=== PATIENT | male | born 1955 | race Caucasian/White ===

== ENCOUNTER 2021-08-18 15:39 | Inpatient (IN) | payer MEDICARE, BC ==
[2021-08-18] MEDS ORDERED: SODIUM CHLORIDE 0.9% 1,000 ML IV STA ×3 (15:56→20:01)
[2021-08-18] MEDS ORDERED: ACETAMINOPHEN TAB 500 MG TAB PO STA (15:56)
[2021-08-18 16:39] LABS: Basophils % (A) 1 %; Eosinophils % (A) 0 %; HCT 53.3 % (39.0-53.0); HGB 18.4 gm/dL (13.0-17.5); Lymphocytes # (A) 0.4 k/uL (1.0-4.8); Lymphocytes % (A) 5 %; MCH 29.4 pg (25.0-35.0); MCHC 34.6 g/dL (31.0-37.0); MCV 85.1 fL (80.0-100.0); Mean Platelet Volume 8.5; Monocytes # (A) 0.2 k/uL (0-1.0); Monocytes % (A) 3 %; Neutrophils # (A) 6.6 k/uL (1.3-7.7); Neutrophils % (A) 91 %; Platelet Count 162 k/uL (150-450); RBC 6.26 m/uL (4.30-5.90); RDW 13.2 % (11.5-15.5); WBC 7.3 k/uL (3.8-10.6)
[2021-08-18 16:51] LABS: Albumin 3.7 g/dL (3.5-5.0); Potassium 3.9 mmol/L (3.5-5.1); Total Bilirubin 0.9 mg/dL (0.2-1.3); Total Protein 6.5 g/dL (6.3-8.2)
--- NOTE | 2021-08-18 17:03 | XR ---
EXAMINATION TYPE: XR chest 1V portable DATE OF EXAM: 08/18/2021 HISTORY: Shortness of breath. COMPARISON: None. TECHNIQUE: Single view of the chest is submitted. FINDINGS: Demonstrated are scattered senescent parenchymal change. Vague groundglass density at the right lung base may reflect developing infiltrate. Correlate clinica lly. The heart is stable. Hilar and mediastinal structures are within normal limits. Degenerative changes are seen of the dorsal spine. IMPRESSION: 1. Vague groundglass density at the right lung base may reflect developing infiltrate. Correlate cli nically.
[2021-08-18] MEDS ORDERED: ACETAMINOPHEN TAB 325 MG TAB PO PRN (20:01)
[2021-08-18] MEDS ORDERED: NALOXONE 0.4 MG/ML 1 ML VIAL IV PRN (20:01)
[2021-08-18] MEDS ORDERED: HYDROcodone/APAP 5-325MG 1 EACH TAB PO PRN (20:01)
[2021-08-18] MEDS ORDERED: CALCIUM CARBONATE 500 MG CHEWABLE PO PRN (20:01)
[2021-08-18] MEDS ORDERED: TEMAZEPAM 15 MG CAP PO PRN (20:01)
[2021-08-18] MEDS ORDERED: ONDANSETRON 4 MG/2 ML VIAL IVP PRN (20:01)
--- NOTE | 2021-08-18 20:01 | ED ---
Fever HPI - General Chief Complaint: Fever Stated Complaint: fever Time Seen by Provider: 08/18/21 15:56 Source: EMS Mode of arrival: EMS Limitations: no limitations - History of Present Illness Initial Comments: Patient has fever, cough, shortness of breath. Symptoms are worse with exertion. He has taken no medicines. He is not having any pain or swelling the arms or legs. He has no palpitations. He has no focal weakness. He has no lightheadedness. He has no back pain. He has no chest pain or pressure. He has no headache. - Related Data Home Medications Medication Instructions Recorded Confirmed Aspirin EC [Ecotrin Low Dose] 81 mg PO DAILY 08/18/21 08/18/21 Cholecalciferol [Vitamin D3 (25 25 mcg PO DAILY 08/18/21 08/18/21 Mcg = 1000 Iu)] Losartan-Hctz 50-12.5 mg [Hyzaar 1 tab PO HS 08/18/21 08/18/21 50-12.5] Ubidecarenone [Co Q-10] 100 mg PO DAILY 08/18/21 08/18/21 Allergies Allergy/AdvReac Type Severity Reaction Status Date / Time No Known Allergies Allergy Verified 08/18/21 17:50 Review of Systems ROS Statement: Those systems with pertinent positive or pertinent negative responses have been documented in the HPI. ROS Other: All systems not noted in ROS Statement are negative. Past Medical History Past Medical History: Hypertension History of Any Multi-Drug Resistant Organisms: None Reported Past Surgical History: Back Surgery, Joint Replacement, Orthopedic Surgery Past Psychological History: No Psychological Hx Reported Smoking Status: Never smoker Past Alcohol Use History: Occasional Past Drug Use History: None Reported General Exam Limitations: no limitations General appearance: alert, in no apparent distress Head exam: Present: atraumatic, normocephalic, normal inspection Eye exam: Present: normal appearance, PERRL, EOMI. Absent: scleral icterus, c onjunctival injection, periorbital swelling ENT exam: Present: normal exam, mucous membranes moist Neck exam: Present: normal inspection. Absent: tenderness, meningismus, lymphadenopathy Respiratory exam: Present: normal lung sounds bilaterally. Absent: respiratory distress, wheezes, rales, rhonchi, stridor Cardiovascular Exam: Present: regular rate, normal rhythm, normal heart sounds. Absent: systolic murmur, diastolic murmur, rubs, gallop, clicks GI/Abdominal exam: Present: soft, normal bowel sounds. Absent: distended, tenderness, guarding, rebound, rigid Extremities exam: Present: normal inspection, full ROM, normal capillary refill. Absent: tenderness, pedal edema, joint swelling, calf tenderness Back exam: Present: normal inspection Neurological exam: Present: alert, oriented X3, CN II-XII intact Psychiatric exam: Present: normal affect, normal mood Skin exam: Present: warm, dry, intact, normal color. Absent: rash Course Vital Signs 08/18/21 08/18/21 15:44 16:11 Temperature 98.2 F Pulse Rate 91 Respiratory 18 18 Rate Blood Pressure 102/51 O2 Sat by Pulse 95 Oximetry Medical Decision Making - Medical Decision Making patient is short of breath. His sodium is low. He is Covid positive. He requires supplemental oxygen. He will be admitted to the hospital. - Lab Data Result diagrams: 08/18/21 16:19 08/18/21 16:19 Lab Results 08/18/21 08/18/21 08/18/21 Range/Units 16:19 16:19 16:19 WBC 7.3 (3.8-10.6) k/uL RBC 6.26 H (4.30-5.90) m/uL Hgb 18.4 H (13.0-17.5) gm/dL Hct 53.3 H (39.0-53.0) % MCV 85.1 (80.0-100.0) fL MCH 29.4 (25.0-35.0) pg MCHC 34.6 (31.0-37.0) g/dL RDW 13.2 (11.5-15.5) % Plt Count 162 (150-450) k/uL MPV 8.5 Neutrophils % 91 % Lymphocytes % 5 % Monocytes % 3 % Eosinophils % 0 % Basophils % 1 % Neutrophils # 6.6 (1.3-7.7) k/uL Lymphocytes # 0.4 L (1.0-4.8) k/uL Monocytes # 0.2 (0-1.0) k/uL Eosinophils # 0.0 (0-0.7) k/uL Basophils # 0.0 (0-0.2) k/uL Sodium 129 L (137-145) mmol/L Potassium 3.9 (3.5-5.1) mmol/L Chloride 95 L (98-107) mmol/L Carbon Dioxide 20 L (22-30) mmol/L Anion Gap 14 mmol/L BUN 61 H (9-20) mg/dL Creatinine 2.99 H (0.66-1.25) mg/dL Est GFR (CKD-EPI)AfAm 24 (>60 ml/min/1.73 sqM) Est GFR (CKD-EPI)NonAf 21 (>60 ml/min/1.73 sqM) Glucose 156 H (74-99) mg/dL Lactic Ac Sepsis Rflx Plasma Lactic Acid Jai 2.8 H* (0.7-2.0) mmol/L Calcium 8.0 L (8.4-10.2) mg/dL Total Bilirubin 0.9 (0.2-1.3) mg/dL AST 72 H (17-59) U/L ALT 43 (4-49) U/L Alkaline Phosphatase 47 (38-126) U/L Total Protein 6.5 (6.3-8.2) g/dL Albumin 3.7 (3.5-5.0) g/dL Influenza Type A (PCR) (Not Detectd) Influenza Type B (PCR) (Not Detectd) RSV (PCR) (Not Detectd) SARS-CoV-2 (PCR) (Not Detectd) 08/18/21 08/18/21 Range/Units 16:19 16:59 WBC (3.8-10.6) k/uL RBC (4.30-5.90) m/uL Hgb (13.0-17.5) gm/dL Hct (39.0-53.0) % MCV (80.0-100.0) fL MCH (25.0-35.0) pg MCHC (31.0-37.0) g/dL RDW (11.5-15.5) % Plt Count (150-450) k/uL MPV Neutrophils % % Lymphocytes % % Monocytes % % Eosinophils % % Basophils % % Neutrophils # (1.3-7.7) k/uL Lymphocytes # (1.0-4.8) k/uL Monocytes # (0-1.0) k/uL Eosinophils # (0-0.7) k/uL Basophils # (0-0.2) k/uL Sodium (137-145) mmol/L Potassium (3.5-5.1) mmol/L Chloride (98-107) mmol/L Carbon Dioxide (22-30) mmol/L Anion Gap mmol/L BUN (9-20) mg/dL Creatinine (0.66-1.25) mg/dL Est GFR (CKD-EPI)AfAm (>60 ml/min/1.73 sqM) Est GFR (CKD-EPI)NonAf (>60 ml/min/1.73 sqM) Glucose (74-99) mg/dL Lactic Ac Sepsis Rflx Y Plasma Lactic Acid Jai (0.7-2.0) mmol/L Calcium (8.4-10.2) mg/dL Total Bilirubin (0.2-1.3) mg/dL AST (17-59) U/L ALT (4-49) U/L Alkaline Phosphatase (38-126) U/L Total Protein (6.3-8.2) g/dL Albumin (3.5-5.0) g/dL Influenza Type A (PCR) Not Detected (Not Detectd) Influenza Type B (PCR) Not Detected (Not Detectd) RSV (PCR) Not Detected (Not Detectd) SARS-CoV-2 (PCR) Detected A (Not Detectd) Disposition Clinical Impression: COVID-19 Disposition: ADMITTED IP TO THIS HOSP Condition: Fair Is patient prescribed a controlled substance at d/c from ED?: No Referrals: Seda Tolentino MD [Primary Care Provider] - 1-2 days
[2021-08-18] MEDS ORDERED: LOSARTAN-HCTZ 50-12.5 MG 1 EACH TAB PO SCH (21:00)
[2021-08-18] MEDS: DEXAMETHASONE SOD PHOSPHATE 10 MG/ML 1 ML VIAL IVP SCH ×2 (21:25→21:27)
[2021-08-18] MEDS: ENOXAPARIN 40 MG/0.4 ML SYRINGE SQ SCH (21:29)
[2021-08-18] MEDS: ZINC SULFATE 220 MG CAP PO SCH (21:29)
[2021-08-19] MEDS: SODIUM CHLORIDE 0.9% 1,000 ML IV SCH ×4 (01:27→19:57)
[2021-08-19] MEDS: CHOLECALCIFEROL 25 MCG (1000 IU) TABLET PO SCH (08:23)
[2021-08-19] MEDS: ASPIRIN 81 MG PO SCH (08:23)
[2021-08-19] MEDS: ENOXAPARIN 40 MG/0.4 ML SYRINGE SQ SCH (08:23)
[2021-08-19 08:56] LABS: Appearance,Urine Clear (Clear); Bacteria,Urine Rare /hpf; Bilirubin,Urine Negative (Negative); Blood,Urine Small (Negative); Color,Urine Light Yellow; Glucose,Urine (UA) Negative (Negative); Ketones,Urine Negative (Negative); Leukocyte Esterase,Urine Negative (Negative); Mucus,Urine Rare /hpf; Nitrite,Urine Negative (Negative); PH, Urine 5.5 (5.0-8.0); Protein,Urine Trace (Negative); RBC,Urine <1 /hpf (0-5); Specific Gravity,Urine 1.011 (1.001-1.035); Urobilinogen,Urine <2.0 mg/dL (<2.0); WBC,Urine 2 /hpf (0-5)
[2021-08-19] MEDS: ZINC SULFATE 220 MG CAP PO SCH (09:41)
[2021-08-19] MEDS: DEXAMETHASONE SOD PHOSPHATE 10 MG/ML 1 ML VIAL IVP SCH (12:52)
--- NOTE | 2021-08-19 13:31 | P.HPIM ---
History of Present Illness Patient is 66-year-old male came in with compensative shortness of breath which has been going on for about 8 days along with diarrhea which has been going on for 4 days and patient felt dehydrated. Patient does have highly elevated serum creatinine up to 2.9 with be an of around 60 with hyponatremia consistent with severe dehydration. Patient was not vaccinated for Covid. Patient is presently on 5 L of oxygen. Patient is found to have Covid 19. Patient is also on lisinopril and hydrocodone generalized at home. REVIEW OF SYSTEMS: CONSTITUTIONAL: No feverHEENT: No recent visual problems or hearing problems. Denied any sore throat. CARDIOVASCULAR: No chest pain, orthopnea, PND, no palpitations, no syncope. PULMONARY: no hemoptysis. GASTROINTESTINAL: no abdominal pain. NEUROLOGICAL: No headaches, no weakness, no numbness. HEMATOLOGICAL: Denies any bleeding or petechiae. GENITOURINARY: Denies any burning micturition, frequency, or urgency. MUSCULOSKELETAL/RHEUMATOLOGICAL: Denies any joint pain, swelling, or any muscle pain. ENDOCRINE: Denies any polyuria or polydipsia. The rest of the 14-point review of systems is negative. PHYSICAL EXAMINATION: GENERAL: The patient is alert and oriented x3, not in any acute distress. Well developed, well nourished. HEENT: Pupils are round and equally reacting to light. EOMI. No scleral icterus. No conjunctival pallor. Normocephalic, atraumatic. No pharyngeal erythema. No thyromegaly. CARDIOVASCULAR: S1 and S2 present. No murmurs, rubs, or gallops. PULMONARY: Chest is clear to auscultation, no wheezing or crackles. ABDOMEN: Soft, nontender, nondistended, normoactive bowel sounds. No palpable organomegaly. MUSCULOSKELETAL: No joint swelling or deformity. EXTREMITIES: No cyanosis, clubbing, or pedal edema. NEUROLOGICAL: Gross neurological examination did not reveal any focal deficits. SKIN: No rashes. Assessment and plan -Acute hypoxic respiratory failure secondary to Covid 19 pneumonia chest x-ray showed ground glass opacities, was started on Decadron, Dilantin and supplementation. Pulmonary will be consulted -Diarrhea secondary to Covid 19 infection next and have an acute renal failure secondary to prerenal azotemia from diarrhea continue with IV fluids recheck basic volley profile tomorrow. Hydrochlorothiazide and losartan will be held -Hypovolemic hyponatremia secondary to diarrhea as mentioned above -Hypertension: The above-mentioned antiemesis medications are being held because of acute renal failure DVT prophylaxis: Subcutaneous heparin d-dimer will be obtained Past Medical History Past Medical History: Hypertension History of Any Multi-Drug Resistant Organisms: None Reported Past Surgical History: Back Surgery, Joint Replacement, Orthopedic Surgery Past Anesthesia/Blood Transfusion Reactions: Previous Problems w/ Anesthesia Additional Past Anesthesia/Blood Transfusion Reaction / Comment(s): patient says that he stops breathing if he has anethesia for too long Past Psychological History: No Psychological Hx Reported Smoking Status: Never smoker Past Alcohol Use History: Occasional Past Drug Use History: None Reported Medications and Allergies Home Medications Medication Instructions Recorded Confirmed Type Aspirin EC [Ecotrin Low Dose] 81 mg PO DAILY 08/18/21 08/18/21 History Cholecalciferol [Vitamin D3 (25 25 mcg PO DAILY 08/18/21 08/18/21 History Mcg = 1000 Iu)] Losartan-Hctz 50-12.5 mg [Hyzaar 1 tab PO HS 08/18/21 08/18/21 History 50-12.5] Ubidecarenone [Co Q-10] 100 mg PO DAILY 08/18/21 08/18/21 History Allergies Allergy/AdvReac Type Severity Reaction Status Date / Time No Known Allergies Allergy Verified 08/18/21 17:50 Physical Exam Vitals: Vital Signs Temp Pulse Pulse Resp BP BP Pulse Ox 08/19/21 10:57 91 L 08/19/21 08:00 98.4 F 81 20 115/74 85 L 08/19/21 03:07 99.2 F 85 22 123/72 91 L 08/19/21 02:16 86 20 125/87 94 L 08/19/21 00:06 83 20 131/78 93 L 08/18/21 22:34 82 22 92 L 08/18/21 22:17 78 20 108/68 96 08/18/21 21:31 76 20 93/53 92 L 08/18/21 16:11 18 08/18/21 15:44 98.2 F 91 18 102/51 95 Intake and Output 08/18/21 08/19/21 08/19/21 22:59 06:59 14:59 Intake Total 180 Output Total 1200 Balance -1020 Intake: Oral 180 Output: Urine 1200 Other: Weight 123.422 kg Results CBC & Chem 7: 08/18/21 16:19 08/18/21 16:19 Labs: Abnormal Lab Results - Last 24 Hours (Table) 08/18/21 08/18/21 08/18/21 Range/Units 16:19 16:19 16:19 RBC 6.26 H (4.30-5.90) m/uL Hgb 18.4 H (13.0-17.5) gm/dL Hct 53.3 H (39.0-53.0) % Lymphocytes # 0.4 L (1.0-4.8) k/uL Sodium 129 L (137-145) mmol/L Chloride 95 L (98-107) mmol/L Carbon Dioxide 20 L (22-30) mmol/L BUN 61 H (9-20) mg/dL Creatinine 2.99 H (0.66-1.25) mg/dL Glucose 156 H (74-99) mg/dL Plasma Lactic Acid Jai 2.8 H* (0.7-2.0) mmol/L Calcium 8.0 L (8.4-10.2) mg/dL AST 72 H (17-59) U/L Urine Protein (Negative) Urine Blood (Negative) Urine Bacteria (None) /hpf Urine Mucus (None) /hpf SARS-CoV-2 (PCR) (Not Detectd) 08/18/21 08/19/21 Range/Units 16:19 08:38 RBC (4.30-5.90) m/uL Hgb (13.0-17.5) gm/dL Hct (39.0-53.0) % Lymphocytes # (1.0-4.8) k/uL Sodium (137-145) mmol/L Chloride (98-107) mmol/L Carbon Dioxide (22-30) mmol/L BUN (9-20) mg/dL Creatinine (0.66-1.25) mg/dL Glucose (74-99) mg/dL Plasma Lactic Acid Jai (0.7-2.0) mmol/L Calcium (8.4-10.2) mg/dL AST (17-59) U/L Urine Protein Trace H (Negative) Urine Blood Small H (Negative) Urine Bacteria Rare H (None) /hpf Urine Mucus Rare H (None) /hpf SARS-CoV-2 (PCR) Detected A (Not Detectd) Thrombosis Risk Factor Assmnt - Choose All That Apply Each Risk Factor Represents 2 Points: Age 61-74 years Thrombosis Risk Factor Assessment Total Risk Factor Score: 2 Thrombosis Risk Factor Assessment Level: Low Risk
[2021-08-20] MEDS: HEPARIN SODIUM,PORCINE/PF 5,000 UNIT/0.5 ML SYRINGE SQ SCH ×4 (01:11→21:10)
[2021-08-20] MEDS: SODIUM CHLORIDE 0.9% 1,000 ML IV SCH ×2 (05:09→20:17)
[2021-08-20] MEDS: DEXAMETHASONE SOD PHOSPHATE 10 MG/ML 1 ML VIAL IVP SCH (08:32)
[2021-08-20] MEDS: CHOLECALCIFEROL 25 MCG (1000 IU) TABLET PO SCH (08:32)
[2021-08-20] MEDS: ZINC SULFATE 220 MG CAP PO SCH (08:32)
[2021-08-20] MEDS: ASPIRIN 81 MG PO SCH (08:32)
[2021-08-20 09:28] LABS: HGB 16.2 g/dL (13.0-17.0); MCH 28.4 pg (27.0-32.0); MCHC 32.4 g/dL (32.0-37.0); MCV 87.7 fL (80.0-97.0); Mean Platelet Volume 10.1 fL (9.5-12.2); Platelet Count 253 X 10*3/uL (140-440); WBC 10.63 X 10*3/uL (4.50-10.00)
[2021-08-20 09:56] LABS: African American GFR (CKD) 60.3 (60.0-200.0); Anion Gap 12.7 mmol/L (10.00-18.00); BUN/Creat Ratio 24.36 Ratio (12.00-20.00); Blood Urea Nitrogen 34.1 mg/dL (9.0-27.0); Calcium 8.2 mg/dL (8.7-10.3); Carbon Dioxide 22.3 mmol/L (20.0-27.5); Potassium 4.5 mmol/L (3.5-5.5)
[2021-08-20 11:12] LABS: C Reactive Protein 7.2 mg/dL (<1.0)
--- NOTE | 2021-08-20 11:14 | P.CNPUL ---
History of Present Illness Consult date: 08/19/21 Reason for consult: dyspnea, pneumonia History of present illness: 66-year-old male patient presented with shortness of breath and he was diagnosed having Coumadin secondary to pneumonia. The patient became symptomatic approximately 8 days ago and the patient was developing diarrhea and he progressively became more dehydrated and he also became short of breath. He presented to the burst department quite dehydrated, hypokalemic and the patient was also hypoxic. He is currently on 5 L of oxygen by nasal cannula. He has a acute kidney injury in the creatinine was up to 2.9 and his sodium level was down to 129 at time of admission. His white cell count was at 7.3. The patient had positive COVID 19 testing by PCR. His lactic acid level initially was at 2.8 with a white cell count of 6.26. Chest x-ray consistent with diffuse bilate ral pulmonary infiltrates in agreement with COVID 19 related infection/pneumonia. The patient was started on Decadron X milligrams IV every 24 hours. The patient is also normal saline at the rate of 100 mL an hour. Making adequate urine output. He is known to have hypertension as comorbid conditions. Review of Systems Constitutional: Reports as per HPI, Reports fatigue, Reports lethargy, Reports poor appetite, Reports weakness Eyes: denies as per HPI, denies blurred vision, denies bulging eye, denies decreased vision, denies diplopia, denies discharge, denies dry eye, denies irritation, denies itching, denies pain, denies photophobia, denies loss of peripheral vision, denies loss of vision, denies tunnel vision/blind spots Ears: deny: decreased hearing, ear discharge, earache, tinnitus Ears, nose, mouth and throat: Reports as per HPI Breasts: absent: as per HPI, gynecomastia Cardiovascular: Reports dyspnea on exertion Respiratory: Reports cough, Reports dyspnea Gastrointestinal: Reports as per HPI Genitourinary: Reports as per HPI Musculoskeletal: Reports as per HPI Musculoskeletal: absent: ankle pain, ankle stiffness, ankle swelling, as per HPI, elbow pain, elbow stiffness, elbow swelling, foot pain, foot stiffness, foot swelling, hand pain, hand stiffness, hand swelling, hip pain, hip stiffness, hip swelling, knee pain, knee stiffness, knee swelling, shoulder pain, shoulder stiffness, shoulder swelling, wrist pain, wrist stiffness, wrist swelling Integumentary: Reports as per HPI Neurological: Reports as per HPI, Reports weakness Psychiatric: Reports as per HPI Endocrine: Reports as per HPI, Reports fatigue Hematologic/Lymphatic: Reports as per HPI Allergic/Immunologic: Reports as per HPI Past Medical History Past Medical History: Hypertension History of Any Multi-Drug Resistant Organisms: None Reported Past Surgical History: Back Surgery, Joint Replacement, Orthopedic Surgery Past Anesthesia/Blood Transfusion Reactions: Previous Problems w/ Anesthesia Additional Past Anesthesia/Blood Transfusion Reaction / Comment(s): patient says that he stops breathing if he has anethesia for too long Past Psychological History: No Psychological Hx Reported Smoking Status: Never smoker Past Alcohol Use History: Occasional Past Drug Use History: None Reported Medications and Allergies Home Medications Medication Instructions Recorded Confirmed Type Aspirin EC [Ecotrin Low Dose] 81 mg PO DAILY 08/18/21 08/18/21 History Cholecalciferol [Vitamin D3 (25 25 mcg PO DAILY 08/18/21 08/18/21 History Mcg = 1000 Iu)] Losartan-Hctz 50-12.5 mg [Hyzaar 1 tab PO HS 08/18/21 08/18/21 History 50-12.5] Ubidecarenone [Co Q-10] 100 mg PO DAILY 08/18/21 08/18/21 History Allergies Allergy/AdvReac Type Severity Reaction Status Date / Time No Known Allergies Allergy Verified 08/18/21 17:50 Physical Exam Vitals: Vital Signs Temp Pulse Pulse Resp BP BP Pulse Ox 08/19/21 14:32 98.3 F 85 18 136/83 90 L 08/19/21 10:57 91 L 08/19/21 08:00 98.4 F 81 20 115/74 85 L 08/19/21 03:07 99.2 F 85 22 123/72 91 L 08/19/21 02:16 86 20 125/87 94 L 08/19/21 00:06 83 20 131/78 93 L 08/18/21 22:34 82 22 92 L 08/18/21 22:17 78 20 108/68 96 08/18/21 21:31 76 20 93/53 92 L Intake and Output 08/19/21 08/19/21 08/19/21 06:59 14:59 22:59 Intake Total 180 Output Total 1200 Balance -1020 Intake: Oral 180 Output: Urine 1200 Gen. appearance, comfortable likely distress, mildly labored breathing and the patient is currently on 5 L of oxygen by nasal cannula Head exam was generally normal. There was no scleral icterus or corneal arcus. Mucous membranes were moist. Neck was supple and without jugular venous distension, thyromegaly, or carotid bruits. Carotids were easily palpable bilaterally. There was no adenopathy. Lungs sounds are diminished and the patient has limited second lung bases bilaterally Cardiac exam revealed the PMI to be normally situated and sized. The rhythm was regular and no extrasystoles were noted during several minutes of auscultation. The first and second heart sounds were normal and physiologic splitting of the second heart sound was noted. There were no murmurs, rubs, clicks, or gallops. Abdominal exam revealed normal bowel sounds. The abdomen was soft, non-tender, and without masses, organomegaly, or appreciable enlargement of the abdominal aorta. Examination of the extremities revealed easily palpable radial, femoral and pedal pulses. There was no cyanosis, clubbing or edema. Examination of the skin revealed no evidence of significant rashes, suspicious appearing nevi or other concerning lesions. Neurologically, the patient is awake and alert and the patient does not have any focal neurological deficit. Cranial nerves are essentially intact. Results - Laboratory Findings CBC and BMP: 08/18/21 16:19 08/18/21 16:19 PT/INR, D-dimer D-Dimer 0.79 mg/L FEU (<0.60) H 08/19/21 13:18 Abnormal lab findings: Abnormal Labs 08/18/21 08/18/21 08/18/21 16:19 16:19 16:19 RBC 6.26 H Hgb 18.4 H Hct 53.3 H Lymphocytes # 0.4 L D-Dimer Sodium 129 L Chloride 95 L Carbon Dioxide 20 L BUN 61 H Creatinine 2.99 H Glucose 156 H Plasma Lactic Acid Jai 2.8 H* Calcium 8.0 L AST 72 H Urine Protein Urine Blood Urine Bacteria Urine Mucus SARS-CoV-2 (PCR) 08/18/21 08/19/21 08/19/21 16:19 08:38 13:18 RBC Hgb Hct Lymphocytes # D-Dimer 0.79 H Sodium Chloride Carbon Dioxide BUN Creatinine Glucose Plasma Lactic Acid Jai Calcium AST Urine Protein Trace H Urine Blood Small H Urine Bacteria Rare H Urine Mucus Rare H SARS-CoV-2 (PCR) Detected A - Diagnostic Findings Chest x-ray: image reviewed Assessment and Plan Plan: 1 acute bilateral COVID 19 related to pneumonia. Symptoms started approximately 8 days ago and the patient became progressively more short of breath and hypoxic and currently is hospitalized with bilateral pneumonia and he is on 5 L of oxygen by nasal cannula 2 acute hypoxic respiratory failure secondary to above 3 diarrhea with intravascular volume depletion secondary to above 4 acute kidney injury secondary to above, this is prerenal azotemia and acute kidney injury related to hypovolemia and the patient is currently on IV fluids 5 hyponatremia, hypovolemic 6 hypertension 7 lactic acidosis, recovered. Plan Hydrate the patient with normal saline today to 100 mL an hour Start the patient on Decadron 6 L IV every 24 hours Start the patient on Lovenox for DVT prophylaxis Patient is outside the window for Remdesivir Monitor the oxygen flow to maintain a saturation above 90% Monitor electrolytes and hydrate the patient Patient had mild lactic acidosis is improved
[2021-08-20 11:39] LABS: Glucose,Whole Blood 141 mg/dL (75-99)
--- NOTE | 2021-08-20 13:01 | P.PN ---
Subjective Progress Note Date: 08/20/21 66-year-old male patient presented with shortness of breath and he was diagnosed having Coumadin secondary to pneumonia. The patient became symptomatic approximately 8 days ago and the patient was developing diarrhea and he progressively became more dehydrated and he also became short of breath. He presented to the burst department quite dehydrated, hypokalemic and the patient was also hypoxic. He is currently on 5 L of oxygen by nasal cannula. He has a acute kidney injury in the creatinine was up to 2.9 and his sodium level was down to 129 at time of admission. His white cell count was at 7.3. The patient had positive COVID 19 testing by PCR. His lactic acid level initially was at 2.8 with a white cell count of 6.26. Chest x-ray consistent with diffuse bilateral pulmonary infiltrates in agreement with COVID 19 related infection/pneumonia. The patient was started on Decadron X milligrams IV every 24 hours. The patient is also normal saline at the rate of 100 mL an hour. Making adequate urine output. He is known to have hypertension as comorbid conditions. The patient is seen today 08/20/2021 in follow-up on the regular medical floor. He is currently sitting up at the bedside. Awake and alert in no acute distress. He is requiring 6 L high flow nasal cannula to maintain O2 saturations in the low 90s. He's been afebrile. Hemodynamically stable. White count 10.6. Hemoglobin 6. Sodium 140. Potassium 4.5. Creatinine 1.4. LDH 20-40. C-reactive protein 7.2. Glucose 141. He is continued on Decadron, Heparin subcutaneous, vitamin supplements. He is quite adamant about going home today Objective - Vital Signs Vital signs: Vital Signs Temp 98.2 F 08/20/21 08:00 Pulse 92 08/20/21 08:00 Resp 16 08/20/21 08:00 BP 118/75 08/20/21 08:00 Pulse Ox 92 L 08/20/21 09:59 Intake & Output 08/19/21 08/20/21 08/20/21 18:59 06:59 18:59 Intake Total 402 1200 Output Total 1200 Balance -798 1200 Intake: Intake, IV Titration 1200 Amount Sodium Chloride 0.9% 1, 1200 000 ml @ 100 mls/hr IV . Q10H [facility] Rx#:[id number] Oral 402 Output: Urine 1200 Other: Voiding Method Urinal - Exam Gen. appearance, comfortable likely distress, mildly labored breathing and the patient is currently on 5 L of oxygen by nasal cannula Head exam was generally normal. There was no scleral icterus or corneal arcus. Mucous membranes were moist. Neck was supple and without jugular venous distension, thyromegaly, or carotid bruits. Carotids were easily palpable bilaterally. There was no adenopathy. Lungs sounds are diminished and the patient has limited second lung bases bilaterally Cardiac exam revealed the PMI to be normally situated and sized. The rhythm was regular and no extrasystoles were noted during several minutes of auscultation. The first and second heart sounds were normal and physiologic splitting of the second heart sound was noted. There were no murmurs, rubs, clicks, or gallops. Abdominal exam revealed normal bowel sounds. The abdomen was soft, non-tender, and without masses, organomegaly, or appreciable enlargement of the abdominal aorta. Examination of the extremities revealed easily palpable radial, femoral and pedal pulses. There was no cyanosis, clubbing or edema. Examination of the skin revealed no evidence of significant rashes, suspicious appearing nevi or other concerning lesions. Neurologically, the patient is awake and alert and the patient does not have any focal neurological deficit. Cranial nerves are essentially intact. - Labs CBC & Chem 7: 08/20/21 06:35 08/20/21 06:35 Labs: Abnormal Lab Results - Last 24 Hours (Table) 08/19/21 08/20/21 08/20/21 Range/Units 13:18 06:35 06:35 WBC 10.63 H (4.50-10.00) X 10*3/uL RBC 5.70 H (4.40-5.60) X 10*6/uL D-Dimer 0.79 H (<0.60) mg/L FEU BUN 34.1 H (9.0-27.0) mg/dL Est GFR (CKD-EPI)NonAf 52.0 L (60.0-200.0) BUN/Creatinine Ratio 24.36 H (12.00-20.00) Ratio Glucose 135 H (70-110) mg/dL POC Glucose (mg/dL) (75-99) mg/dL Calcium 8.2 L (8.7-10.3) mg/dL Lactate Dehydrogenase (313-618) U/L C-Reactive Protein (<1.0) mg/dL 08/20/21 08/20/21 Range/Units 06:35 11:38 WBC (4.50-10.00) X 10*3/uL RBC (4.40-5.60) X 10*6/uL D-Dimer (<0.60) mg/L FEU BUN (9.0-27.0) mg/dL Est GFR (CKD-EPI)NonAf (60.0-200.0) BUN/Creatinine Ratio (12.00-20.00) Ratio Glucose (70-110) mg/dL POC Glucose (mg/dL) 141 H (75-99) mg/dL Calcium (8.7-10.3) mg/dL Lactate Dehydrogenase 2240 H (313-618) U/L C-Reactive Protein 7.2 H (<1.0) mg/dL Assessment and Plan Assessment: 1 acute bilateral COVID 19 related to pneumonia. Symptoms started approximately 8 days ago and the patient became progressively more short of breath and hypoxic and currently is hospitalized with bilateral pneumonia and he is on 5 L of oxygen by nasal cannula 2 acute hypoxic respiratory failure secondary to above 3 diarrhea with intravascular volume depletion secondary to above 4 acute kidney injury secondary to above, this is prerenal azotemia and acute kidney injury related to hypovolemia and the patient is currently on IV fluids 5 hyponatremia, hypovolemic 6 hypertension 7 lactic acidosis, recovered. Plan The patient was seen and evaluated today He is still requiring 5-6 L of oxygen Continue on Decadron and vitamin supplements He is quite adamant about going home He will need home oxygen He is being encouraged to come back if his condition worsens
[2021-08-20] MEDS: INSULIN ASPART (NovoLOG) 100 UNIT/ML VIAL SQ SCH ×3 (13:31→20:16)
--- NOTE | 2021-08-20 15:41 | P.PN ---
Subjective Progress Note Date: 08/20/21 Patient is 66-year-old male came in with compensative shortness of breath which has been going on for about 8 days along with diarrhea which has been going on for 4 days and patient felt dehydrated. Patient does have highly elevated serum creatinine up to 2.9 with be an of around 60 with hyponatremia consistent with severe dehydration. Patient was not vaccinated for Covid. Patient is presently on 5 L of oxygen. Patient is found to have Covid 19. Patient is also on lisinopril and hydrocodone generalized at home. 08/20/2021 Patient validated today resting in bed. He is on a 6 L nasal cannula high flow with oxygen saturation 91%. Patient was to be discharged home however he is hypoxic on room air into the low 80s. Discussed with patient that this is not recommended as he is positive for Covid and requiring oxygen. Labs: white count 10.63, hemoglobin 16.2, sodium improved drastically to 140, BUN 34, creatinine 1.4 glucose elevated at 140s. LDH 2240 and CRP 7.2. Urinalysis is negative. Today patient is afebrile, heart rate 84, blood pressure elevated 177/79. Patient is being followed closely by pulmonary services. ROS Constitutional: Denied any fatigue denied any fever. Cardio vascular: denied any chest pain, palpitations Gastrointestinal denied any nausea vomiting Pulmonary: Reports shortness of breath Neurologic denied any new focal deficits All inpatient medications were reviewed and appropriate changes in these medications as dictated in the interval history and assessment and plan. PHYSICAL EXAMINATION: GENERAL: The patient is alert and oriented x3. Well developed, well nourished. HEENT: Pupils are round and equally reacting to light. EOMI. No scleral icterus. No conjunctival pallor. Normocephalic, atraumatic. No pharyngeal erythema. No thyromegaly. CARDIOVASCULAR: S1 and S2 present. No murmurs, rubs, or gallops. PULMONARY: Chest is clear to auscultation, no wheezing or crackles. He is mildly tachpneic ABDOMEN: Soft, nontender, nondistended, normoactive bowel sounds. No palpable organomegaly. MUSCULOSKELETAL: No joint swelling or deformity. EXTREMITIES: No cyanosis, clubbing, or pedal edema. NEUROLOGICAL: Gross neurological examination did not reveal any focal deficits. SKIN: No rashes. Assessment and plan -Acute hypoxic respiratory failure secondary to Covid 19 pneumonia, requiring 6L NC which he may require more throughout the evening -Diarrhea secondary to Covid 19 infection -Acute renal failure secondary to prerenal azotemia from diarrhea continue with IV fluids, improved -Hypovolemic hyponatremia secondary to diarrhea as mentioned above, improved -Hypertension: can resume losartan DVT prophylaxis: Subcutaneous heparin Plan Continue oxygen support Continue decadron, zinc, vitamins Continue all other supportive care Patient understanding of need for oxygen therapy Repeat labs tomorrow Can resume losartan today Prognosis is guarded Objective - Vital Signs Vital signs: Vital Signs Temp 98.2 F 08/20/21 08:00 Pulse 92 08/20/21 08:00 Resp 16 08/20/21 08:00 BP 118/75 08/20/21 08:00 Pulse Ox 92 L 08/20/21 09:59 Intake & Output 08/19/21 08/20/21 08/20/21 18:59 06:59 18:59 Intake Total 402 1200 Output Total 1200 Balance -798 1200 Intake: Intake, IV Titration 1200 Amount Sodium Chloride 0.9% 1, 1200 000 ml @ 100 mls/hr IV . Q10H [facility] Rx#:[id number] Oral 402 Output: Urine 1200 Other: Voiding Method Urinal - Labs CBC & Chem 7: 08/20/21 06:35 08/20/21 06:35 Labs: Abnormal Lab Results - Last 24 Hours (Table) 08/19/21 08/20/21 08/20/21 Range/Units 13:18 06:35 06:35 WBC 10.63 H (4.50-10.00) X 10*3/uL RBC 5.70 H (4.40-5.60) X 10*6/uL D-Dimer 0.79 H (<0.60) mg/L FEU BUN 34.1 H (9.0-27.0) mg/dL Est GFR (CKD-EPI)NonAf 52.0 L (60.0-200.0) BUN/Creatinine Ratio 24.36 H (12.00-20.00) Ratio Glucose 135 H (70-110) mg/dL POC Glucose (mg/dL) (75-99) mg/dL Calcium 8.2 L (8.7-10.3) mg/dL Lactate Dehydrogenase (313-618) U/L C-Reactive Protein (<1.0) mg/dL 08/20/21 08/20/21 Range/Units 06:35 11:38 WBC (4.50-10.00) X 10*3/uL RBC (4.40-5.60) X 10*6/uL D-Dimer (<0.60) mg/L FEU BUN (9.0-27.0) mg/dL Est GFR (CKD-EPI)NonAf (60.0-200.0) BUN/Creatinine Ratio (12.00-20.00) Ratio Glucose (70-110) mg/dL POC Glucose (mg/dL) 141 H (75-99) mg/dL Calcium (8.7-10.3) mg/dL Lactate Dehydrogenase 2240 H (313-618) U/L C-Reactive Protein 7.2 H (<1.0) mg/dL Assessment and Plan Time with Patient: Greater than 30
[2021-08-20 17:38] LABS: Glucose,Whole Blood 172 mg/dL (75-99)
[2021-08-20] MEDS: LOSARTAN 25 MG TAB PO SCH (18:03)
[2021-08-20 18:59] LABS: Glucose,Whole Blood 178 mg/dL (75-99)
[2021-08-21] MEDS: SODIUM CHLORIDE 0.9% 1,000 ML IV SCH ×3 (01:11→21:06)
[2021-08-21 08:08] LABS: Glucose,Whole Blood 115 mg/dL (75-99)
[2021-08-21 09:09] LABS: African American GFR (CKD) 80.6 (60.0-200.0); Albumin 3.3 g/dL (3.8-4.9); Albumin/Globulin Ratio 1.57 (1.60-3.17); Anion Gap 13.7 mmol/L (10.00-18.00); BUN/Creat Ratio 23.18 Ratio (12.00-20.00); Blood Urea Nitrogen 25.5 mg/dL (9.0-27.0); Calcium 8.2 mg/dL (8.7-10.3); Carbon Dioxide 22.3 mmol/L (20.0-27.5); Globulin 2.1 g/dL (1.6-3.3); Non-African American GFR(CKD) 69.6 (60.0-200.0); Potassium 4.4 mmol/L (3.5-5.5); Total Bilirubin 0.4 mg/dL (0.30-1.20); Total Protein 5.4 g/dL (6.2-8.2)
[2021-08-21 09:12] LABS: Basophils # (A) 0.04 X 10*3/uL (0.00-0.10); Basophils % (A) 0.4 %; Eosinophils # (A) 0 X 10*3/uL (0.04-0.35); Eosinophils % (A) 0 %; HCT 49.1 % (39.6-50.0); HGB 15.7 g/dL (13.0-17.0); Lymphocytes # (A) 0.94 X 10*3/uL (0.90-5.00); Lymphocytes % (A) 9.8 %; MCH 28.4 pg (27.0-32.0); MCV 88.8 fL (80.0-97.0); Monocytes # (A) 0.63 X 10*3/uL (0.20-1.00); Monocytes % (A) 6.6 %; Neutrophils % (A) 81.3 %; Platelet Count 269 X 10*3/uL (140-440); RBC 5.53 X 10*6/uL (4.40-5.60); RDW 14.2 % (11.5-14.5); WBC 9.59 X 10*3/uL (4.50-10.00)
[2021-08-21] MEDS: INSULIN ASPART (NovoLOG) 100 UNIT/ML VIAL SQ SCH ×4 (09:51→21:06)
[2021-08-21] MEDS: DEXAMETHASONE SOD PHOSPHATE 10 MG/ML 1 ML VIAL IVP SCH (10:06)
[2021-08-21] MEDS: ASPIRIN 81 MG PO SCH (10:07)
[2021-08-21] MEDS: HEPARIN SODIUM,PORCINE/PF 5,000 UNIT/0.5 ML SYRINGE SQ SCH ×3 (10:07→21:11)
[2021-08-21] MEDS: CHOLECALCIFEROL 25 MCG (1000 IU) TABLET PO SCH (10:07)
[2021-08-21] MEDS: LOSARTAN 25 MG TAB PO SCH (10:07)
[2021-08-21] MEDS: ZINC SULFATE 220 MG CAP PO SCH (10:07)
--- NOTE | 2021-08-21 11:15 | P.PN ---
Subjective Progress Note Date: 08/21/21 Patient is 66-year-old male came in with compensative shortness of breath which has been going on for about 8 days along with diarrhea which has been going on for 4 days and patient felt dehydrated. Patient does have highly elevated serum creatinine up to 2.9 with be an of around 60 with hyponatremia consistent with severe dehydration. Patient was not vaccinated for Covid. Patient is presently on 5 L of oxygen. Patient is found to have Covid 19. Patient is also on lisinopril and hydrocodone generalized at home. 08/20/2021 Patient evaluated today resting in bed. He is on a 6 L nasal cannula high flow with oxygen saturation 91%. Patient was to be discharged home however he is hypoxic on room air into the low 80s. Discussed with patient that this is not recommended as he is positive for Covid and requiring oxygen. Labs: white count 10.63, hemoglobin 16.2, sodium improved drastically to 140, BUN 34, creatinine 1.4 glucose elevated at 140s. LDH 2240 and CRP 7.2. Urinalysis is negative. Today patient is afebrile, heart rate 84, blood pressure elevated 177/79. Patient is being followed closely by pulmonary services. 08/21/2021 Patient this morning is agitated. He developed been hospitalized more. Unfortunately he is requiring 10 L nasal cannula high flow with oxygen saturation of 87-91%. Patient's complaint is of the room is cold, he was offered additional blankets, and thermostat states room temp is 70*. Additionally, patient is not understanding of the need for oxygen support and the risk for discharge even on 6L HF cannula. Oxygen tanks and high flow cannula were supplied for anticipated discharge, and patient has the number for [facility]. Verified CODE status with patient and he states that he has a living will, and at this time he DOES NOT want CPR, medications, and intubation even temporarily. He states that "I don't know what your temporary means." Unsure whether patient full understands his diagnosis, therapeutics, and prognosis if he leaves AGAINST MEDICAL ADVICE. Patient was advised that medically he is not cleared for discharge requiring 10L high flow cannula. Vitals today 97.9, heart rate 77, blood pressure 147/80, 87% 10L HF cannula. Repeat labs tomorrow. His lungs are clear. He denies current smoking, states occasional alcohol use. RN to verify code status and educate patient further and follow up. Patient may need psychiatric evaluation for medical competency. It is difficult to converse with patient and educate, as he is adamant on a discharge order. ROS Constitutional: Denied any fatigue denied any fever. Cardio vascular: denied any chest pain, palpitations Gastrointestinal: denied any nausea vomiting Pulmonary: Reports shortness of breath Neurologic denied any new focal deficits All inpatient medications were reviewed and appropriate changes in these medications as dictated in the interval history and assessment and plan. PHYSICAL EXAMINATION: GENERAL: The patient is alert and oriented x3. Well developed, well nourished. Obese HEENT: Pupils are round and equally reacting to light. EOMI. No scleral icterus. No conjunctival pallor. Normocephalic, atraumatic. No pharyngeal erythema. No thyromegaly. CARDIOVASCULAR: S1 and S2 present. No murmurs, rubs, or gallops. PULMONARY: Chest is clear to auscultation, no wheezing or crackles. He is mildly tachpneic ABDOMEN: Soft, nontender, nondistended, normoactive bowel sounds. No palpable organomegaly. MUSCULOSKELETAL: No joint swelling or deformity. EXTREMITIES: No cyanosis, clubbing, or pedal edema. NEUROLOGICAL: Gross neurological examination did not reveal any focal deficits. SKIN: No rashes. CODE STATUS: Ordered as full code, patient states NO CODE as described above, however on admission patients wishes were FULL CODE prior to requiring high flow oxygen support. Will follow up later this afternoon. Assessment and plan -Acute hypoxic respiratory failure secondary to Covid 19 pneumonia, on 10L HF nasal cannula -Diarrhea secondary to Covid 19 infection, improved -Acute renal failure secondary to prerenal azotemia from diarrhea continue with IV fluids, improved -Hypovolemic hyponatremia secondary to diarrhea as mentioned above, improved -Hypertension: can resume losartan DVT prophylaxis: Subcutaneous heparin Plan Continue oxygen support Continue decadron, zinc, vitamins Continue all other supportive care labs, repeat D-Dimer tomorrow Wean oxygen as tolerated Pulmonary Consult Objective - Vital Signs Vital signs: Vital Signs Temp 97.9 F 08/21/21 08:00 Pulse 77 08/21/21 08:00 Resp 20 08/21/21 08:00 BP 147/80 08/21/21 08:00 Pulse Ox 87 L 08/21/21 08:00 Intake & Output 08/20/21 08/21/21 08/21/21 18:59 06:59 18:59 Intake Total 222 Output Total 300 Balance 222 -300 Intake: Oral 222 Output: Urine 300 Other: Voiding Method Urinal Urinal # Voids 2 - Labs CBC & Chem 7: 08/21/21 06:28 08/21/21 06:28 Labs: Abnormal Lab Results - Last 24 Hours (Table) 08/20/21 08/20/21 08/20/21 Range/Units 06:35 06:35 11:38 Immature Gran # (0.00-0.04) X 10*3/uL Neutrophils # (1.80-7.70) X 10*3/uL Eosinophils # (0.04-0.35) X 10*3/uL BUN 34.1 H (9.0-27.0) mg/dL Est GFR (CKD-EPI)NonAf 52.0 L (60.0-200.0) BUN/Creatinine Ratio 24.36 H (12.00-20.00) Ratio Glucose 135 H (70-110) mg/dL POC Glucose (mg/dL) 141 H (75-99) mg/dL Calcium 8.2 L (8.7-10.3) mg/dL AST (14-35) U/L Lactate Dehydrogenase 2240 H (313-618) U/L C-Reactive Protein 7.2 H (<1.0) mg/dL Total Protein (6.2-8.2) g/dL Albumin (3.8-4.9) g/dL Albumin/Globulin Ratio (1.60-3.17) g/dL 08/20/21 08/20/21 08/21/21 Range/Units 17:37 18:58 06:28 Immature Gran # 0.18 H (0.00-0.04) X 10*3/uL Neutrophils # 7.80 H (1.80-7.70) X 10*3/uL Eosinophils # 0 L (0.04-0.35) X 10*3/uL BUN (9.0-27.0) mg/dL Est GFR (CKD-EPI)NonAf (60.0-200.0) BUN/Creatinine Ratio (12.00-20.00) Ratio Glucose (70-110) mg/dL POC Glucose (mg/dL) 172 H 178 H (75-99) mg/dL Calcium (8.7-10.3) mg/dL AST (14-35) U/L Lactate Dehydrogenase (313-618) U/L C-Reactive Protein (<1.0) mg/dL Total Protein (6.2-8.2) g/dL Albumin (3.8-4.9) g/dL Albumin/Globulin Ratio (1.60-3.17) g/dL 08/21/21 08/21/21 Range/Units 06:28 08:06 Immature Gran # (0.00-0.04) X 10*3/uL Neutrophils # (1.80-7.70) X 10*3/uL Eosinophils # (0.04-0.35) X 10*3/uL BUN (9.0-27.0) mg/dL Est GFR (CKD-EPI)NonAf (60.0-200.0) BUN/Creatinine Ratio 23.18 H (12.00-20.00) Ratio Glucose 123 H (70-110) mg/dL POC Glucose (mg/dL) 115 H (75-99) mg/dL Calcium 8.2 L (8.7-10.3) mg/dL AST 66 H (14-35) U/L Lactate Dehydrogenase (313-618) U/L C-Reactive Protein (<1.0) mg/dL Total Protein 5.4 L (6.2-8.2) g/dL Albumin 3.3 L (3.8-4.9) g/dL Albumin/Globulin Ratio 1.57 L (1.60-3.17) g/dL Assessment and Plan Time with Patient: Greater than 30
[2021-08-21 13:35] LABS: Glucose,Whole Blood 118 mg/dL (75-99)
--- NOTE | 2021-08-21 15:38 | P.PN ---
Subjective Progress Note Date: 08/21/21 66-year-old male patient presented with shortness of breath and he was diagnosed having Coumadin secondary to pneumonia. The patient became symptomatic approximately 8 days ago and the patient was developing diarrhea and he progressively became more dehydrated and he also became short of breath. He pr esented to the burst department quite dehydrated, hypokalemic and the patient was also hypoxic. He is currently on 5 L of oxygen by nasal cannula. He has a acute kidney injury in the creatinine was up to 2.9 and his sodium level was down to 129 at time of admission. His white cell count was at 7.3. The patient had positive COVID 19 testing by PCR. His lactic acid level initially was at 2.8 with a white cell count of 6.26. Chest x-ray consistent with diffuse bilateral pulmonary infiltrates in agreement with COVID 19 related infection/pneumonia. The patient was started on Decadron X milligrams IV every 24 hours. The patient is also normal saline at the rate of 100 mL an hour. Making adequate urine output. He is known to have hypertension as comorbid conditions. The patient is seen today 08/20/2021 in follow-up on the regular medical floor. He is currently sitting up at the bedside. Awake and alert in no acute distress. He is requiring 6 L high flow nasal cannula to maintain O2 saturations in the low 90s. He's been afebrile. Hemodynamically stable. White count 10.6. Hemoglobin 6. Sodium 140. Potassium 4.5. Creatinine 1.4. LDH 20-40. C-reactive protein 7.2. Glucose 141. He is continued on Decadron, Heparin subcutaneous, vitamin supplements. He is quite adamant about going home today 08/21/2021, the patient is quite frustrated by staying in the hospital. She wants to go home. Nevertheless, his condition got worse especially in terms of his oxygenation the patient is currently on 10 L about 2 by nasal cannula to maintain saturation above 90%. As mentioned earlier, he has a COVID 19 related pneumonia and the patient is currently being treated with Decadron. Inflammatory markers were noted and the patient has an LDH level of 2240 with a CRP of 7.2. Creatinine is down to 1.1 and acute kidney injury is recovered. Sodium is level is at 141. White cell count is at 9.5 with a hemoglobin of 15.7. He is resting comfortably in bed. He is tolerating his diet. Has multiple complaints including being in the hospital is quite frustrated. Nevertheless, does not have any signs of any acute respiratory distress. He remains on normal saline at rate of 100 and hour. Objective - Vital Signs Vital signs: Vital Signs Temp 98 F 08/21/21 13:51 Pulse 76 08/21/21 13:51 Resp 18 08/21/21 13:51 BP 136/72 08/21/21 13:51 Pulse Ox 93 L 08/21/21 13:51 Intake & Output 08/20/21 08/21/21 08/21/21 18:59 06:59 18:59 Intake Total 222 473 Output Total 700 Balance 222 -227 Intake: Oral 222 473 Output: Urine 700 Other: Voiding Method Urinal Urinal # Voids 2 - Exam Gen. appearance, comfortable likely distress, mildly labored breathing and the patient is currently on 10 L of oxygen by nasal cannula Head exam was generally normal. There was no scleral icterus or corneal arcus. Mucous membranes were moist. Neck was supple and without jugular venous distension, thyromegaly, or carotid bruits. Carotids were easily palpable bilaterally. There was no adenopathy. Lungs sounds are diminished and the patient has limited second lung bases bilaterally Cardiac exam revealed the PMI to be normally situated and sized. The rhythm was regular and no extrasystoles were noted during several minutes of auscultation. The first and second heart sounds were normal and physiologic splitting of the second heart sound was noted. There were no murmurs, rubs, clicks, or gallops. Abdominal exam revealed normal bowel sounds. The abdomen was soft, non-tender, and without masses, organomegaly, or appreciable enlargement of the abdominal aorta. Examination of the extremities revealed easily palpable radial, femoral and pedal pulses. There was no cyanosis, clubbing or edema. Examination of the skin revealed no evidence of significant rashes, suspicious appearing nevi or other concerning lesions. Neurologically, the patient is awake and alert and the patient does not have any focal neurological deficit. Cranial nerves are essentially intact. - Labs CBC & Chem 7: 08/21/21 06:28 08/21/21 06:28 Labs: Abnormal Lab Results - Last 24 Hours (Table) 08/20/21 08/20/21 08/21/21 Range/Units 17:37 18:58 06:28 Immature Gran # 0.18 H (0.00-0.04) X 10*3/uL Neutrophils # 7.80 H (1.80-7.70) X 10*3/uL Eosinophils # 0 L (0.04-0.35) X 10*3/uL BUN/Creatinine Ratio (12.00-20.00) Ratio Glucose (70-110) mg/dL POC Glucose (mg/dL) 172 H 178 H (75-99) mg/dL Calcium (8.7-10.3) mg/dL AST (14-35) U/L Total Protein (6.2-8.2) g/dL Albumin (3.8-4.9) g/dL Albumin/Globulin Ratio (1.60-3.17) g/dL 08/21/21 08/21/21 08/21/21 Range/Units 06:28 08:06 13:32 Immature Gran # (0.00-0.04) X 10*3/uL Neutrophils # (1.80-7.70) X 10*3/uL Eosinophils # (0.04-0.35) X 10*3/uL BUN/Creatinine Ratio 23.18 H (12.00-20.00) Ratio Glucose 123 H (70-110) mg/dL POC Glucose (mg/dL) 115 H 118 H (75-99) mg/dL Calcium 8.2 L (8.7-10.3) mg/dL AST 66 H (14-35) U/L Total Protein 5.4 L (6.2-8.2) g/dL Albumin 3.3 L (3.8-4.9) g/dL Albumin/Globulin Ratio 1.57 L (1.60-3.17) g/dL Assessment and Plan Plan: 1 acute bilateral COVID 19 related to pneumonia. Symptoms started approximately 8 days ago and the patient became progressively more short of breath and hypoxic and currently is hospitalized with bilateral pneumonia and he is on 10 L of oxygen by nasal cannula. Noted the patient's vaccinations and worsen the patient's oxygenation has decompensated and his requirements of oxygen has gone up to 10 L over the past 24-48 hours. He remains on Decadron. He is also on anticoagulants with Lovenox. His acute kidney injury is recovered. 2 acute hypoxic respiratory failure secondary to above, currently on 10 L of Oxymizer nasal cannula. 3 diarrhea with intravascular volume depletion secondary to above, improved 4 acute kidney injury secondary to above, this is prerenal azotemia and acute kidney injury related to hypovolemia and the patient is currently on IV fluids, improved and the renal function is normalized 5 hyponatremia, hypovolemic, improved 6 hypertension 7 lactic acidosis, recovered. Plan Diet Fluids to KVO Continue Decadron 6 L IV every 24 hours Continue Lovenox for DVT prophylaxis Patient is outside the window for Remdesivir Monitor the oxygen flow to maintain a saturation above 90% Electrodes have improved Patient had mild lactic acidosis is improved Not ready for discharge.
[2021-08-21 18:11] LABS: Glucose,Whole Blood 219 mg/dL (75-99)
[2021-08-21 19:46] LABS: Glucose,Whole Blood 172 mg/dL (75-99)
[2021-08-22 07:46] LABS: Glucose,Whole Blood 94 mg/dL (75-99)
[2021-08-22] MEDS: INSULIN ASPART (NovoLOG) 100 UNIT/ML VIAL SQ SCH ×4 (08:34→21:06)
[2021-08-22 09:24] LABS: Basophils # (A) 0.05 X 10*3/uL (0.00-0.10); Basophils % (A) 0.5 %; Eosinophils # (A) 0.05 X 10*3/uL (0.04-0.35); Eosinophils % (A) 0.5 %; HGB 15.8 g/dL (13.0-17.0); Lymphocytes # (A) 1.25 X 10*3/uL (0.90-5.00); Lymphocytes % (A) 11.6 %; MCH 28.9 pg (27.0-32.0); MCHC 32.9 g/dL (32.0-37.0); MCV 87.8 fL (80.0-97.0); Monocytes # (A) 0.56 X 10*3/uL (0.20-1.00); Monocytes % (A) 5.2 %; Neutrophils # (A) 8.52 X 10*3/uL (1.80-7.70); Neutrophils % (A) 79.4 %; Platelet Count 300 X 10*3/uL (140-440); RBC 5.47 X 10*6/uL (4.40-5.60); WBC 10.73 X 10*3/uL (4.50-10.00)
[2021-08-22] MEDS: HEPARIN SODIUM,PORCINE/PF 5,000 UNIT/0.5 ML SYRINGE SQ SCH (10:17)
[2021-08-22] MEDS: DEXAMETHASONE SOD PHOSPHATE 10 MG/ML 1 ML VIAL IVP SCH (10:17)
--- NOTE | 2021-08-22 10:58 | XR ---
EXAMINATION TYPE: XR chest 1V portable DATE OF EXAM: 08/22/2021 HISTORY: Shortness of breath. COMPARISON: 08/18/2021 TECHNIQUE: Single view of the chest is submitted. FINDINGS: Demonstrated are scattered senescent parenchymal change. Pulmonary venous congestion with cardiomegaly and a small amount of fluid within the right minor fiss ure. Correlate for mild congestive failure. Hilar and mediastinal structures are within normal limits. Degenerative changes are seen of the dorsal spine. IMPRESSION: 1. Pulmonary venous congestion with cardiomegaly and a small amount of fluid within the right minor fissure. Correlate for mild congestive failure.
[2021-08-22] MEDS: ASPIRIN 81 MG PO SCH (11:11)
[2021-08-22] MEDS: CHOLECALCIFEROL 25 MCG (1000 IU) TABLET PO SCH (11:12)
[2021-08-22] MEDS: ZINC SULFATE 220 MG CAP PO SCH (11:12)
[2021-08-22] MEDS: LOSARTAN 25 MG TAB PO SCH (11:12)
[2021-08-22 12:47] LABS: African American GFR (CKD) 89.4 (60.0-200.0); Anion Gap 14.2 mmol/L (10.00-18.00); BUN/Creat Ratio 21.09 Ratio (12.00-20.00); Blood Urea Nitrogen 21.3 mg/dL (9.0-27.0); C Reactive Protein 3.6 mg/dL (0.00-0.80); Calcium 8.4 mg/dL (8.7-10.3); Carbon Dioxide 19.7 mmol/L (20.0-27.5); Non-African American GFR(CKD) 77.2 (60.0-200.0); Potassium 4.5 mmol/L (3.5-5.5)
[2021-08-22 13:41] LABS: Glucose,Whole Blood 141 mg/dL (75-99)
--- NOTE | 2021-08-22 14:36 | P.PN ---
Subjective Progress Note Date: 08/22/21 66-year-old male patient presented with shortness of breath and he was diagnosed having Coumadin secondary to pneumonia. The patient became symptomatic approximately 8 days ago and the patient was developing diarrhea and he progressively became more dehydrated and he also became short of breath. He presented to the burst department quite dehydrated, hypokalemic and the patient was also hypoxic. He is currently on 5 L of oxygen by nasal cannula. He has a acute kidney injury in the creatinine was up to 2.9 and his sodium level was down to 129 at time of admission. His white cell count was at 7.3. The patient had positive COVID 19 testing by PCR. His lactic acid level initially was at 2.8 with a white cell count of 6.26. Chest x-ray consistent with diffuse bilateral pulmonary infiltrates in agreement with COVID 19 related infection/pneumonia. The patient was started on Decadron X milligrams IV every 24 hours. The patient is also normal saline at the rate of 100 mL an hour. Making adequate urine output. He is known to have hypertension as comorbid conditions. The patient is seen today 08/20/2021 in follow-up on the regular medical floor. He is currently sitting up at the bedside. Awake and alert in no acute distress. He is requiring 6 L high flow nasal cannula to maintain O2 saturations in the low 90s. He's been afebrile. Hemodynamically stable. White count 10.6. Hemoglobin 6. Sodium 140. Potassium 4.5. Creatinine 1.4. LDH 20-40. C-reactive protein 7.2. Glucose 141. He is continued on Decadron, Heparin subcutaneous, vitamin supplements. He is quite adamant about going home today 08/21/2021, the patient is quite frustrated by staying in the hospital. She wants to go home. Nevertheless, his condition got worse especially in terms of his oxygenation the patient is currently on 10 L about 2 by nasal cannula to maintain saturation above 90%. As mentioned earlier, he has a COVID 19 related pneumonia and the patient is currently being treated with Decadron. Inflammatory markers were noted and the patient has an LDH level of 2240 with a CRP of 7.2. Creatinine is down to 1.1 and acute kidney injury is recovered. Sodium is level is at 141. White cell count is at 9.5 with a hemoglobin of 15.7. He is resting comfortably in bed. He is tolerating his diet. Has multiple complaints including being in the hospital is quite frustrated. Nevertheless, does not have any signs of any acute respiratory distress. He remains on normal saline at rate of 100 and hour. The patient is seen today 08/22/2021 follow-up on the regular medical floor. His pulmonary status has worsened. He had a rapid response team call on him earlier. He desaturated in the low 80s on 10 L high flow nasal cannula. He is subsequently placed on BiPAP 18/8 and 100% FiO2 with O2 saturations in the low 90s. He is tachypneic. Chest x-ray continues to show pulmonary venous congestion with cardiomegaly as well as some patchy infiltrates. Count 10.7. Hemoglobin 15.8. D-dimer 2.98. Sodium 139. Potassium 4.5. Creatinine 1.0. Glucose 103. LDH 748. C-reactive protein 3.6. He is continued on Decadron, Lovenox, vitamin supplements. Objective - Vital Signs Vital signs: Vital Signs Temp 98.2 F 08/22/21 07:49 Pulse 77 08/22/21 07:49 Resp 24 08/22/21 07:49 BP 125/74 08/22/21 07:49 Pulse Ox 84 L 08/22/21 07:49 Intake & Output 08/21/21 08/22/21 08/22/21 18:59 06:59 18:59 Intake Total 473 Output Total 700 Balance -227 Intake: Oral 473 Output: Urine 700 Other: Voiding Method Urinal # Voids 1 1 # Bowel Movements 1 - Exam Gen. appearance, 66-year-old male patient mild respiratory distress. Now requiring BiPAP at 18/8 and 100% FiO2. Head exam was generally normal. There was no scleral icterus or corneal arcus. Mucous membranes were moist. Neck was supple and without jugular venous distension, thyromegaly, or carotid bruits. Carotids were easily palpable bilaterally. There was no adenopathy. Lungs sounds are diminished and the patient has limited crackles in the bila teral lung bases bilaterally Cardiac exam revealed the PMI to be normally situated and sized. The rhythm was regular and no extrasystoles were noted during several minutes of auscultation. The first and second heart sounds were normal and physiologic splitting of the second heart sound was noted. There were no murmurs, rubs, clicks, or gallops. Abdominal exam revealed normal bowel sounds. The abdomen was soft, non-tender, and without masses, organomegaly, or appreciable enlargement of the abdominal aorta. Examination of the extremities revealed easily palpable radial, femoral and pedal pulses. There was no cyanosis, clubbing or edema. Examination of the skin revealed no evidence of significant rashes, suspicious appearing nevi or other concerning lesions. Neurologically, the patient is awake and alert and the patient does not have any focal neurological deficit. Cranial nerves are essentially intact. - Labs CBC & Chem 7: 08/22/21 05:58 08/22/21 05:58 Labs: Abnormal Lab Results - Last 24 Hours (Table) 08/21/21 08/21/21 08/22/21 Range/Units 18:09 19:45 05:58 WBC 10.73 H (4.50-10.00) X 10*3/uL Absolute Nucleated RBC 0.02 H (0.00-0.00) X 10*3/uL Immature Gran # 0.30 H (0.00-0.04) X 10*3/uL Neutrophils # 8.52 H (1.80-7.70) X 10*3/uL NRBC/100 WBC Diff 0.2 H (0.0-0.0) /100 WBCS D-Dimer (<0.60) mg/L FEU Carbon Dioxide (20.0-27.5) mmol/L BUN/Creatinine Ratio (12.00-20.00) Ratio POC Glucose (mg/dL) 219 H 172 H (75-99) mg/dL Calcium (8.7-10.3) mg/dL Lactate Dehydrogenase (120-246) U/L C-Reactive Protein (0.00-0.80) mg/dL 08/22/21 08/22/21 08/22/21 Range/Units 05:58 05:58 13:38 WBC (4.50-10.00) X 10*3/uL Absolute Nucleated RBC (0.00-0.00) X 10*3/uL Immature Gran # (0.00-0.04) X 10*3/uL Neutrophils # (1.80-7.70) X 10*3/uL NRBC/100 WBC Diff (0.0-0.0) /100 WBCS D-Dimer 2.98 H (<0.60) mg/L FEU Carbon Dioxide 19.7 L (20.0-27.5) mmol/L BUN/Creatinine Ratio 21.09 H (12.00-20.00) Ratio POC Glucose (mg/dL) 141 H (75-99) mg/dL Calcium 8.4 L (8.7-10.3) mg/dL Lactate Dehydrogenase 748 H (120-246) U/L C-Reactive Protein 3.60 H (0.00-0.80) mg/dL Assessment and Plan Assessment: 1 acute bilateral COVID 19 related to pneumonia. Symptoms started approximately 8 days prior to his arrival and the patient became progressively more short of breath and hypoxic and currently is hospitalized with bilateral pneumonia and his hypoxemia has progressed and he is rapid response team called on 08/22/2021. He is currently on BiPAP 18/8 and 100% FiO2. We will initiate Baricitinib. 2 acute hypoxic respiratory failure secondary to above 3 diarrhea with intravascular volume depletion secondary to above 4 acute kidney injury secondary to above, this is prerenal azotemia and acute kidney injury related to hypovolemia and the patient treated with IV fluids improved and creatinine is 1.0 5 hyponatremia, hypovolemic 6 hypertension 7 lactic acidosis, recovered. Plan The patient was seen and evaluated today He was found to be quite hypoxemic this a.m. Rapid response team was called Currently on BiPAP 18/8 and 100% FiO2 To be initiated on Baricitinib Continue Lovenox, Decadron, vitamin supplements Transfer to the ICU once a bed becomes available Too unstable for CT angiogram at this time Continue on Decadron and vitamin supplements
--- NOTE | 2021-08-22 15:34 | P.PN ---
Subjective Progress Note Date: 08/22/21 Patient is 66-year-old male came in with compensative shortness of breath which has been going on for about 8 days along with diarrhea which has been going on for 4 days and patient felt dehydrated. Patient does have highly elevated serum creatinine up to 2.9 with be an of around 60 with hyponatremia consistent with severe dehydration. Patient was not vaccinated for Covid. Patient is presently on 5 L of oxygen. Patient is found to have Covid 19. Patient is also on lisinopril and hydrocodone generalized at home. 08/20/2021 Patient evaluated today resting in bed. He is on a 6 L nasal cannula high flow with oxygen saturation 91%. Patient was to be discharged home however he is hypoxic on room air into the low 80s. Discussed with patient that this is not recommended as he is positive for Covid and requiring oxygen. Labs: white count 10.63, hemoglobin 16.2, sodium improved drastically to 140, BUN 34, creatinine 1.4 glucose elevated at 140s. LDH 2240 and CRP 7.2. Urinalysis is negative. Today patient is afebrile, heart rate 84, blood pressure elevated 177/79. Patient is being followed closely by pulmonary services. 08/21/2021 Patient this morning is agitated. He developed been hospitalized more. Unfortunately he is requiring 10 L nasal cannula high flow with oxygen saturation of 87-91%. Patient's complaint is of the room is cold, he was offered additional blankets, and thermostat states room temp is 70*. Additionally, patient is not understanding of the need for oxygen support and the risk for discharge even on 6L HF cannula. Oxygen tanks and high flow cannula were supplied for anticipated discharge, and patient has the number for [facility]. Verified CODE status with patient and he states that he has a living will, and at this time he DOES NOT want CPR, medications, and intubation even temporarily. He states that "I don't know what your temporary means." Unsure whether patient full understands his diagnosis, therapeutics, and prognosis if he leaves AGAINST MEDICAL ADVICE. Patient was advised that medically he is not cleared for discharge requiring 10L high flow cannula. Vitals today 97.9, heart rate 77, blood pressure 147/80, 87% 10L HF cannula. Repeat labs tomorrow. His lungs are clear. He denies current smoking, states occasional alcohol use. RN to verify code status and educate patient further and follow up. Patient may need psychiatric evaluation for medical competency. It is difficult to converse with patient and educate, as he is adamant on a discharge order. 08/22/2021 This morning there was an Ateam called on the patient at about 8:30 AM, arrived to the bedside and patient was in respiratory distress requiring increasing oxygenation support with oxygen saturations in the 80s. ICU nurse and sound physician already present. BiPAP was ordered at 18/8 and 100% FiO2, with subsequent oxygen saturations in the low 90s. CODE STATUS was addressed and updated in patient agrees to a full code. Inflammatory markers, d-dimer and labs were pending at the time. Today white count is 10.73, sodium 139, potassium 4.5, CO2 19.7, glucose stable in the 140s, LDH 748 and CRP 3.60. D- dimer elevated at 2.98. Procalcitonin is pending. Chest x-ray today shows pulmonary venous congestion with cardiomegaly and a small amount of fluid in the right minor fissure correlate for mild congestive failure. Would like a CTA for better evaluation however due to current respiratory status, CTA cannot be completed. [employer]ice is recommending transfer to ICU when bed becomes available. Vital signs currently 98.2, heart rate 83, respiratory rate 31, blood pressure 151/75 and he is 94% saturation on the BiPAP. ROS Constitutional: Denied any fatigue denied any fever. Cardio vascular: denied any chest pain, palpitations Gastrointestinal: denied any nausea vomiting Pulmonary: Reports shortness of breath Neurologic denied any new focal deficits All inpatient medications were reviewed and appropriate changes in these medications as dictated in the interval history and assessment and plan. PHYSICAL EXAMINATION: GENERAL: The patient is alert and oriented x3. Respiratory distress at the time of my examination, requiring BiPAP support. HEENT: Pupils are round and equally reacting to light. EOMI. No scleral icterus. No conjunctival pallor. Normocephalic, atraumatic. No pharyngeal erythema. No thyromegaly. CARDIOVASCULAR: S1 and S2 present. No murmurs, rubs, or gallops. PULMONARY: Coarse rales bilateral bases ABDOMEN: Soft, nontender, nondistended, normoactive bowel sounds. No palpable organomegaly. MUSCULOSKELETAL: No joint swelling or deformity. EXTREMITIES: No cyanosis, clubbing, or pedal edema. NEUROLOGICAL: Gross neurological examination did not reveal any focal deficits. SKIN: No rashes. CODE STATUS: Ordered as full code, patient states NO CODE as described above, however on admission patients wishes were FULL CODE prior to requiring high flow oxygen support. Will follow up later this afternoon. Assessment and plan -Acute hypoxic respiratory failure secondary to Covid 19 pneumonia, desaturated, rapid response was called, and patient now on BiPAP with 100% FiO2 -Diarrhea secondary to Covid 19 infection, improved -Acute renal failure secondary to prerenal azotemia from diarrhea continue with IV fluids, improved -Hypovolemic hyponatremia secondary to diarrhea as mentioned above, improved -Hypertension: can resume losartan DVT prophylaxis: LOVENOX FULL CODE Plan Continue oxygen support Continue decadron, zinc, vitamins Continue all other supportive care Repeat labs tomorrow Pulmonary Consult Transfer to ICU when bed available Objective - Vital Signs Vital signs: Vital Signs Temp 98.2 F 08/22/21 15:11 Pulse 83 08/22/21 15:11 Resp 31 H 08/22/21 15:11 BP 151/75 08/22/21 15:11 Pulse Ox 94 L 08/22/21 15:11 Intake & Output 08/21/21 08/22/21 08/22/21 18:59 06:59 18:59 Intake Total 473 Output Total 700 300 Balance -227 -300 Intake: Oral 473 Output: Urine 700 300 Other: Voiding Method Urinal # Voids 1 1 # Bowel Movements 1 - Labs CBC & Chem 7: 08/22/21 05:58 08/22/21 05:58 Labs: Abnormal Lab Results - Last 24 Hours (Table) 08/21/21 08/21/21 08/22/21 Range/Units 18:09 19:45 05:58 WBC 10.73 H (4.50-10.00) X 10*3/uL Absolute Nucleated RBC 0.02 H (0.00-0.00) X 10*3/uL Immature Gran # 0.30 H (0.00-0.04) X 10*3/uL Neutrophils # 8.52 H (1.80-7.70) X 10*3/uL NRBC/100 WBC Diff 0.2 H (0.0-0.0) /100 WBCS D-Dimer (<0.60) mg/L FEU Carbon Dioxide (20.0-27.5) mmol/L BUN/Creatinine Ratio (12.00-20.00) Ratio POC Glucose (mg/dL) 219 H 172 H (75-99) mg/dL Calcium (8.7-10.3) mg/dL Lactate Dehydrogenase (120-246) U/L C-Reactive Protein (0.00-0.80) mg/dL 08/22/21 08/22/21 08/22/21 Range/Units 05:58 05:58 13:38 WBC (4.50-10.00) X 10*3/uL Absolute Nucleated RBC (0.00-0.00) X 10*3/uL Immature Gran # (0.00-0.04) X 10*3/uL Neutrophils # (1.80-7.70) X 10*3/uL NRBC/100 WBC Diff (0.0-0.0) /100 WBCS D-Dimer 2.98 H (<0.60) mg/L FEU Carbon Dioxide 19.7 L (20.0-27.5) mmol/L BUN/Creatinine Ratio 21.09 H (12.00-20.00) Ratio POC Glucose (mg/dL) 141 H (75-99) mg/dL Calcium 8.4 L (8.7-10.3) mg/dL Lactate Dehydrogenase 748 H (120-246) U/L C-Reactive Protein 3.60 H (0.00-0.80) mg/dL
[2021-08-22] MEDS: ENOXAPARIN 40 MG/0.4 ML SYRINGE SQ SCH (16:08)
[2021-08-22 17:14] LABS: Glucose,Whole Blood 155 mg/dL (75-99)
[2021-08-22] MEDS: SODIUM CHLORIDE 0.9% 1,000 ML IV SCH (20:33)
[2021-08-22 20:51] LABS: Glucose,Whole Blood 135 mg/dL (75-99)
[2021-08-23] MEDS: ENOXAPARIN 40 MG/0.4 ML SYRINGE SQ SCH ×2 (07:12→21:14)
[2021-08-23] MEDS: LOSARTAN 25 MG TAB PO SCH (07:12)
[2021-08-23] MEDS: BARICITINIB 2 MG TABLET PO SCH (07:12)
[2021-08-23] MEDS: CHOLECALCIFEROL 25 MCG (1000 IU) TABLET PO SCH (07:12)
[2021-08-23] MEDS: ASPIRIN 81 MG PO SCH (07:12)
[2021-08-23] MEDS: ZINC SULFATE 220 MG CAP PO SCH (07:12)
[2021-08-23 07:17] LABS: Glucose,Whole Blood 125 mg/dL (75-99)
[2021-08-23] MEDS: INSULIN ASPART (NovoLOG) 100 UNIT/ML VIAL SQ SCH ×4 (07:28→21:15)
[2021-08-23] MEDS: DEXAMETHASONE SOD PHOSPHATE 10 MG/ML 1 ML VIAL IVP SCH (07:40)
[2021-08-23 09:38] LABS: Basophils # (A) 0.06 X 10*3/uL (0.00-0.10); Basophils % (A) 0.5 %; Eosinophils # (A) 0.02 X 10*3/uL (0.04-0.35); Eosinophils % (A) 0.2 %; HCT 47.5 % (39.6-50.0); HGB 15.4 g/dL (13.0-17.0); Lymphocytes # (A) 0.63 X 10*3/uL (0.90-5.00); Lymphocytes % (A) 5.4 %; MCH 28.4 pg (27.0-32.0); MCHC 32.4 g/dL (32.0-37.0); MCV 87.5 fL (80.0-97.0); Mean Platelet Volume 10.3 fL (9.5-12.2); Monocytes # (A) 0.35 X 10*3/uL (0.20-1.00); Neutrophils # (A) 10.39 X 10*3/uL (1.80-7.70); Neutrophils % (A) 88.8 %; Platelet Count 290 X 10*3/uL (140-440); RBC 5.43 X 10*6/uL (4.40-5.60); WBC 11.69 X 10*3/uL (4.50-10.00)
[2021-08-23 10:26] LABS: African American GFR (CKD) 102.8 (60.0-200.0); Albumin 3.2 g/dL (3.8-4.9); Albumin/Globulin Ratio 1.39 (1.60-3.17); Anion Gap 13.6 mmol/L (10.00-18.00); BUN/Creat Ratio 20.67 Ratio (12.00-20.00); Blood Urea Nitrogen 18.6 mg/dL (9.0-27.0); Calcium 8.3 mg/dL (8.7-10.3); Carbon Dioxide 19.4 mmol/L (20.0-27.5); Globulin 2.3 g/dL (1.6-3.3); Non-African American GFR(CKD) 88.7 (60.0-200.0); Potassium 4.3 mmol/L (3.5-5.5); Total Bilirubin 0.8 mg/dL (0.30-1.20); Total Protein 5.5 g/dL (6.2-8.2)
--- NOTE | 2021-08-23 11:14 | P.PN ---
Subjective Progress Note Date: 08/23/21 Principal diagnosis: Dyspnea On 08/23/2021 patient seen in follow-up on medical surgical floor. He remains on BiPAP support pressures of 18 and 8 and FiO2 of 100%, his pulse ox is 92%, he is awake and alert, tachypneic, but no acute distress was noted. In addition patient has a large ontiveros and there is a large air leak with this mask. He is oriented 3, denies any chest discomfort, he does desat when the mask is removed to take oral medications, he did have low-grade fevers overnight, with a max temperature of 99.7F. He is currently on Decadron 6 program daily, Lovenox 40 mg daily, and he is on Baricitinib which was started yesterday on 08/23/2021. His labs have been reviewed, pro-calcitonin level is 0.09, renal profile and electrolytes are unremarkable, last d-dimer was 2.98, white count is 11.6, hemoglobin is 15.4. History from today shows pulmonary venous congestion with cardiomegaly and a small amount of fluid within the right minor fissure. Objective - Vital Signs Vital signs: Vital Signs Temp 98.7 F 08/23/21 07:44 Pulse 111 H 08/23/21 07:44 Resp 30 H 08/23/21 07:44 BP 114/72 08/23/21 07:44 Pulse Ox 91 L 08/23/21 07:44 Intake & Output 08/22/21 08/23/21 08/23/21 18:59 06:59 18:59 Output Total 300 400 Balance -300 -400 Output: Urine 300 400 Other: Voiding Method Urinal Urinal # Voids 1 2 # Bowel Movements 1 - Exam GENERAL EXAM: Alert, pleasant, 66-year-old white male, tachypneic, currently on BiPAP support with pressures of 18 and 8, and FiO2 100%, with a pulse ox of 92%, patient has a big air leak around his BiPAP mask related to his large ontiveros. comfortable in no apparent distress. HEAD: Normocephalic/atraumatic. EYES: Normal reaction of pupils, equal size. Conjunctiva pink, sclera white. NOSE: Clear with pink turbinates. THROAT: No erythema or exudates. NECK: No masses, no JVD, no thyroid enlargement, no adenopathy. CHEST: No chest wall deformity. Symmetrical expansion. LUNGS: Equal air entry with bibasilar crackles CVS: Regular rate and rhythm, normal S1 and S2, no gallops, no murmurs, no rubs ABDOMEN: Soft, nontender. No hepatosplenomegaly, normal bowel sounds, no guarding or rigidity. EXTREMITIES: No clubbing, no edema, no cyanosis, 2+ pulses and upper and lower extremities. MUSCULOSKELETAL: Muscle strength and tone normal. SPINE: No scoliosis or deformity SKIN: No rashes CENTRAL NERVOUS SYSTEM: Alert and oriented -3. No focal deficits, tone is n ormal in all 4 extremities. PSYCHIATRIC: Alert and oriented -3. Appropriate affect. Intact judgment and insight. - Labs CBC & Chem 7: 08/23/21 05:27 08/23/21 05:27 Labs: Abnormal Lab Results - Last 24 Hours (Table) 08/22/21 08/22/21 08/22/21 Range/Units 05:58 13:38 17:11 WBC (4.50-10.00) X 10*3/uL Absolute Nucleated RBC (0.00-0.00) X 10*3/uL Immature Gran # (0.00-0.04) X 10*3/uL Neutrophils # (1.80-7.70) X 10*3/uL Lymphocytes # (0.90-5.00) X 10*3/uL Eosinophils # (0.04-0.35) X 10*3/uL NRBC/100 WBC Diff (0.0-0.0) /100 WBCS Carbon Dioxide 19.7 L (20.0-27.5) mmol/L BUN/Creatinine Ratio 21.09 H (12.00-20.00) Ratio Glucose (70-110) mg/dL POC Glucose (mg/dL) 141 H 155 H (75-99) mg/dL Calcium 8.4 L (8.7-10.3) mg/dL AST (14-35) U/L ALT (10-49) U/L Lactate Dehydrogenase 748 H (120-246) U/L C-Reactive Protein 3.60 H (0.00-0.80) mg/dL Total Protein (6.2-8.2) g/dL Albumin (3.8-4.9) g/dL Albumin/Globulin Ratio (1.60-3.17) g/dL 08/22/21 08/23/21 08/23/21 Range/Units 20:45 05:27 05:27 WBC 11.69 H (4.50-10.00) X 10*3/uL Absolute Nucleated RBC 0.02 H (0.00-0.00) X 10*3/uL Immature Gran # 0.24 H (0.00-0.04) X 10*3/uL Neutrophils # 10.39 H (1.80-7.70) X 10*3/uL Lymphocytes # 0.63 L (0.90-5.00) X 10*3/uL Eosinophils # 0.02 L (0.04-0.35) X 10*3/uL NRBC/100 WBC Diff 0.2 H (0.0-0.0) /100 WBCS Carbon Dioxide 19.4 L (20.0-27.5) mmol/L BUN/Creatinine Ratio 20.67 H (12.00-20.00) Ratio Glucose 143 H (70-110) mg/dL POC Glucose (mg/dL) 135 H (75-99) mg/dL Calcium 8.3 L (8.7-10.3) mg/dL AST 62 H (14-35) U/L ALT 84 H (10-49) U/L Lactate Dehydrogenase (120-246) U/L C-Reactive Protein (0.00-0.80) mg/dL Total Protein 5.5 L (6.2-8.2) g/dL Albumin 3.2 L (3.8-4.9) g/dL Albumin/Globulin Ratio 1.39 L (1.60-3.17) g/dL 08/23/21 Range/Units 07:15 WBC (4.50-10.00) X 10*3/uL Absolute Nucleated RBC (0.00-0.00) X 10*3/uL Immature Gran # (0.00-0.04) X 10*3/uL Neutrophils # (1.80-7.70) X 10*3/uL Lymphocytes # (0.90-5.00) X 10*3/uL Eosinophils # (0.04-0.35) X 10*3/uL NRBC/100 WBC Diff (0.0-0.0) /100 WBCS Carbon Dioxide (20.0-27.5) mmol/L BUN/Creatinine Ratio (12.00-20.00) Ratio Glucose (70-110) mg/dL POC Glucose (mg/dL) 125 H (75-99) mg/dL Calcium (8.7-10.3) mg/dL AST (14-35) U/L ALT (10-49) U/L Lactate Dehydrogenase (120-246) U/L C-Reactive Protein (0.00-0.80) mg/dL Total Protein (6.2-8.2) g/dL Albumin (3.8-4.9) g/dL Albumin/Globulin Ratio (1.60-3.17) g/dL Assessment and Plan Plan: Assessment: #1. Acute hypoxic respiratory failure related to COVID-19 pneumonia, onset of symptoms 8 days prior to presentation, and was not a candidate for Remdesivir related to his severe hypoxemia. Patient was started on Versed bun 08/22/2021 #2. Fluid overload, and acute exacerbation of CHF, unspecified #3. Acute kidney injury with prerenal azotemia, improved with IV hydration #4. Hyponatremia, hypovolemic, improved #5. Hypertension #6. Lactic acidosis recovered Plan: Continue BiPAP support, we'll give the patient a dose of IV Lasix 40 mg Continue Baricitinib and Decadron, continue Lovenox Will continue to follow his clinical course Wean FiO2 to maintain O2 saturations at or above 90% Adjust BiPAP mask related to patient having a large leak from around the mask Patient looks fairly comfortable We'll continue monitoring him on the floor unless he deteriorates I performed a history & physical examination of the patient and discussed their management with my nurse practitioner, Karla White. I reviewed the nurse practitioner's note and agree with the documented findings and plan of care. Lung sounds are positive for crackles throughout the lung gandhi. The findings and the impression was discussed with the patient. I attest to the documentation by the nurse practitioner. Time with Patient: Less than 30
[2021-08-23] MEDS: FUROSEMIDE 10 MG/ML 4 ML VIAL IV SCH (11:50)
[2021-08-23 12:30] LABS: Glucose,Whole Blood 195 mg/dL (75-99)
--- NOTE | 2021-08-23 14:08 | P.PN ---
Subjective Progress Note Date: 08/23/21 Patient is 66-year-old male came in with compensative shortness of breath which has been going on for about 8 days along with diarrhea which has been going on for 4 days and patient felt dehydrated. Patient does have highly elevated serum creatinine up to 2.9 with be an of around 60 with hyponatremia consistent with severe dehydration. Patient was not vaccinated for Covid. Patient is presently on 5 L of oxygen. Patient is found to have Covid 19. Patient is also on lisinopril and hydrocodone generalized at home. 08/20/2021 Patient evaluated today resting in bed. He is on a 6 L nasal cannula high flow with oxygen saturation 91%. Patient was to be discharged home however he is hypoxic on room air into the low 80s. Discussed with patient that this is not recommended as he is positive for Covid and requiring oxygen. Labs: white count 10.63, hemoglobin 16.2, sodium improved drastically to 140, BUN 34, creatinine 1.4 glucose elevated at 140s. LDH 2240 and CRP 7.2. Urinalysis is negative. Today patient is afebrile, heart rate 84, blood pressure elevated 177/79. Patient is being followed closely by pulmonary services. 08/21/2021 Patient this morning is agitated. He developed been hospitalized more. Unfortunately he is requiring 10 L nasal cannula high flow with oxygen saturation of 87-91%. Patient's complaint is of the room is cold, he was offered additional blankets, and thermostat states room temp is 70*. Additionally, patient is not understanding of the need for oxygen support and the risk for discharge even on 6L HF cannula. Oxygen tanks and high flow cannula were supplied for anticipated discharge, and patient has the number for [facility]. Verified CODE status with patient and he states that he has a living will, and at this time he DOES NOT want CPR, medications, and intubation even temporarily. He states that "I don't know what your temporary means." Unsure whether patient full understands his diagnosis, therapeutics, and prognosis if he leaves AGAINST MEDICAL ADVICE. Patient was advised that medically he is not cleared for discharge requiring 10L high flow cannula. Vitals today 97.9, heart rate 77, blood pressure 147/80, 87% 10L HF cannula. Repeat labs tomorrow. His lungs are clear. He denies current smoking, states occasional alcohol use. RN to verify code status and educate patient further and follow up. Patient may need psychiatric evaluation for medical competency. It is difficult to converse with patient and educate, as he is adamant on a discharge order. 08/22/2021 This morning there was an Ateam called on the patient at about 8:30 AM, arrived to the bedside and patient was in respiratory distress requiring increasing oxygenation support with oxygen saturations in the 80s. ICU nurse and sound physician already present. BiPAP was ordered at 18/8 and 100% FiO2, with subsequent oxygen saturations in the low 90s. CODE STATUS was addressed and updated in patient agrees to a full code. Inflammatory markers, d-dimer and labs were pending at the time. Today white count is 10.73, sodium 139, potassium 4.5, CO2 19.7, glucose stable in the 140s, LDH 748 and CRP 3.60. D- dimer elevated at 2.98. Procalcitonin is pending. Chest x-ray today shows pulmonary venous congestion with cardiomegaly and a small amount of fluid in the right minor fissure correlate for mild congestive failure. Would like a CTA for better evaluation however due to current respiratory status, CTA cannot be completed. Risk Control Analyst is recommending transfer to ICU when bed becomes available. Vital signs currently 98.2, heart rate 83, respiratory rate 31, blood pressure 151/75 and he is 94% saturation on the BiPAP. 08/23/2021 Patient evaulated this morning on [facility] floor, unless his conditions worsens, ICU transfer on hold for now. There are no acute events overnight, maintained on the BiPAP 100% FiO2, saturation 91%, blood pressure 114/72, heart rate 111, respirations 30, afebrile. Procalcitonin 0.09, white count 11.69, sodium 137, potassium 4.3, CO2 19.4, BUN 18.6, creatinine 0.9, sugars in the 190s, AST 62, ALT 84, total protein 5.5, albumin 3.2 today. Patient was started on KEHINDE today from the pulmonary team. He was also given a dose of IV lasix. Continues on Lovenox, decadron, zinc, vitamin c, vitamin d3. Prognosis remains guarded. ROS Constitutional: Denied any fatigue denied any fever. Cardio vascular: denied any chest pain, palpitations Gastrointestinal: denied any nausea vomiting Pulmonary: Reports shortness of breath Neurologic denied any new focal deficits All inpatient medications were reviewed and appropriate changes in these medications as dictated in the interval history and assessment and plan. PHYSICAL EXAMINATION: GENERAL: The patient is alert and oriented x3. Respiratory distress at the time of my examination, requiring BiPAP support. HEENT: Pupils are round and equally reacting to light. EOMI. No scleral icterus. No conjunctival pallor. Normocephalic, atraumatic. No pharyngeal erythema. No thyromegaly. CARDIOVASCULAR: S1 and S2 present. No murmurs, rubs, or gallops. PULMONARY: Coarse rales bilateral bases ABDOMEN: Soft, nontender, nondistended, normoactive bowel sounds. No palpable organomegaly. MUSCULOSKELETAL: No joint swelling or deformity. EXTREMITIES: No cyanosis, clubbing, or pedal edema. NEUROLOGICAL: Gross neurological examination did not reveal any focal deficits. SKIN: No rashes. Assessment and plan -Acute hypoxic respiratory failure secondary to Covid 19 pneumonia, desaturated, rapid response was called, and patient now on BiPAP with 100% FiO2 -Fluid overload, unspecified, no history of CHF however demonstrated on chest xray, work up in progress -Diarrhea secondary to Covid 19 infection, improved -Acute renal failure secondary to prerenal azotemia from diarrhea continue with IV fluids, improved -Hypovolemic hyponatremia secondary to diarrhea as mentioned above, improved -Hypertension: can resume losartan DVT prophylaxis: LOVENOX GI prophylaxis: Protonix FULL CODE Plan Continue oxygen support Continue decadron, zinc, vitamins, Baritcitinib startd today BNP, echo pending IV lasix x 1 given today Continue all other supportive care Repeat labs tomorrow Prognosis guarded Objective - Vital Signs Vital signs: Vital Signs Temp 98.7 F 08/23/21 07:44 Pulse 111 H 08/23/21 07:44 Resp 30 H 08/23/21 07:44 BP 114/72 08/23/21 07:44 Pulse Ox 91 L 08/23/21 07:44 Intake & Output 08/22/21 08/23/21 08/23/21 18:59 06:59 18:59 Output Total 300 400 Balance -300 -400 Output: Urine 300 400 Other: Voiding Method Urinal Urinal # Voids 1 2 # Bowel Movements 1 - Labs CBC & Chem 7: 08/23/21 05:27 08/23/21 05:27 Labs: Abnormal Lab Results - Last 24 Hours (Table) 08/22/21 08/22/21 08/23/21 Range/Units 17:11 20:45 05:27 WBC 11.69 H (4.50-10.00) X 10*3/uL Absolute Nucleated RBC 0.02 H (0.00-0.00) X 10*3/uL Immature Gran # 0.24 H (0.00-0.04) X 10*3/uL Neutrophils # 10.39 H (1.80-7.70) X 10*3/uL Lymphocytes # 0.63 L (0.90-5.00) X 10*3/uL Eosinophils # 0.02 L (0.04-0.35) X 10*3/uL NRBC/100 WBC Diff 0.2 H (0.0-0.0) /100 WBCS Carbon Dioxide (20.0-27.5) mmol/L BUN/Creatinine Ratio (12.00-20.00) Ratio Glucose (70-110) mg/dL POC Glucose (mg/dL) 155 H 135 H (75-99) mg/dL Calcium (8.7-10.3) mg/dL AST (14-35) U/L ALT (10-49) U/L Total Protein (6.2-8.2) g/dL Albumin (3.8-4.9) g/dL Albumin/Globulin Ratio (1.60-3.17) g/dL 08/23/21 08/23/21 08/23/21 Range/Units 05:27 07:15 12:28 WBC (4.50-10.00) X 10*3/uL Absolute Nucleated RBC (0.00-0.00) X 10*3/uL Immature Gran # (0.00-0.04) X 10*3/uL Neutrophils # (1.80-7.70) X 10*3/uL Lymphocytes # (0.90-5.00) X 10*3/uL Eosinophils # (0.04-0.35) X 10*3/uL NRBC/100 WBC Diff (0.0-0.0) /100 WBCS Carbon Dioxide 19.4 L (20.0-27.5) mmol/L BUN/Creatinine Ratio 20.67 H (12.00-20.00) Ratio Glucose 143 H (70-110) mg/dL POC Glucose (mg/dL) 125 H 195 H (75-99) mg/dL Calcium 8.3 L (8.7-10.3) mg/dL AST 62 H (14-35) U/L ALT 84 H (10-49) U/L Total Protein 5.5 L (6.2-8.2) g/dL Albumin 3.2 L (3.8-4.9) g/dL Albumin/Globulin Ratio 1.39 L (1.60-3.17) g/dL
[2021-08-23 14:39] LABS: Glucose,Whole Blood 203 mg/dL (75-99)
[2021-08-23 21:13] LABS: Glucose,Whole Blood 140 mg/dL (75-99)
[2021-08-24] MEDS: SODIUM CHLORIDE 0.9% 1,000 ML IV SCH ×2 (01:40→22:39)
[2021-08-24 04:00] LABS: Basophils % (A) 0 %; Eosinophils # (A) 0.1 k/uL (0-0.7); Eosinophils % (A) 0 %; HCT 47.5 % (39.0-53.0); HGB 16.2 gm/dL (13.0-17.5); Lymphocytes # (A) 0.7 k/uL (1.0-4.8); Lymphocytes % (A) 6 %; MCH 29.1 pg (25.0-35.0); MCHC 34.2 g/dL (31.0-37.0); MCV 85.2 fL (80.0-100.0); Mean Platelet Volume 8.2; Monocytes # (A) 0.3 k/uL (0-1.0); Monocytes % (A) 2 %; Neutrophils # (A) 11.7 k/uL (1.3-7.7); Neutrophils % (A) 91 %; Platelet Count 291 k/uL (150-450); RBC 5.57 m/uL (4.30-5.90); RDW 13.5 % (11.5-15.5); WBC 12.9 k/uL (3.8-10.6)
[2021-08-24 04:36] LABS: ALT 66 U/L (4-49); AST 51 U/L (17-59); African American GFR (CKD) >90 (>60 ml/min/1.73 sqM); Albumin 3.1 g/dL (3.5-5.0); Alkaline Phosphatase 61 U/L (38-126); Anion Gap 11 mmol/L; Blood Urea Nitrogen 30 mg/dL (9-20); Calcium 8.3 mg/dL (8.4-10.2); Carbon Dioxide 24 mmol/L (22-30); Chloride 103 mmol/L (98-107); Glucose 123 mg/dL (74-99); LDH 1819 U/L (313-618); Non-African American GFR(CKD) 86 (>60 ml/min/1.73 sqM); Potassium 4.3 mmol/L (3.5-5.1); Sodium 138 mmol/L (137-145); Total Bilirubin 0.9 mg/dL (0.2-1.3); Total Protein 6.1 g/dL (6.3-8.2)
--- NOTE | 2021-08-24 06:47 | XR ---
EXAMINATION TYPE: XR chest 1V portable DATE OF EXAM: 08/24/2021 CLINICAL HISTORY: Difficulty breathing and covid progress study. TECHNIQUE: Single AP portable semiupright view of the chest is obtained. COMPARISON: Chest x-ray from 2 and 6 days earlier earlier FINDINGS: Slightly improved inspiration on current study with reticular increased opacities bilatera lly greater in the left lung. No pleural effusion or pneumothorax seen bilaterally. Cardiac silhouett e size stable and within normal limits. Osseous structures are intact. IMPRESSION: Slightly improved inspiration. Persistent reticular increased opacities greater in the le ft lung consistent with covid-19 infection.
[2021-08-24] MEDS: ENOXAPARIN 40 MG/0.4 ML SYRINGE SQ SCH (07:41)
[2021-08-24] MEDS: PANTOPRAZOLE 40 MG/10 ML VIAL IVP SCH (07:41)
[2021-08-24] MEDS: FUROSEMIDE 10 MG/ML 4 ML VIAL IV SCH (07:41)
[2021-08-24] MEDS: ASPIRIN 81 MG PO SCH (07:42)
[2021-08-24] MEDS: DEXAMETHASONE SOD PHOSPHATE 10 MG/ML 1 ML VIAL IVP SCH (07:42)
[2021-08-24] MEDS: ZINC SULFATE 220 MG CAP PO SCH (07:42)
[2021-08-24] MEDS: BARICITINIB 2 MG TABLET PO SCH (07:42)
[2021-08-24] MEDS: CHOLECALCIFEROL 25 MCG (1000 IU) TABLET PO SCH (07:42)
[2021-08-24] MEDS: INSULIN ASPART (NovoLOG) 100 UNIT/ML VIAL SQ SCH ×4 (08:53→21:30)
--- NOTE | 2021-08-24 10:00 | ECHOF ---
Referral Reason:fluid overload MEASUREMENTS -------- HEIGHT: 177.8 cm WEIGHT: 123.4 kg BP: 104/67 IVSd: 1.5 cm (0.6 - 1.1) LVIDd: 3.9 cm (3.9 - 5.3) LVPWd: 1.4 cm (0.6 - 1.1) EDV(Teich): 66 ml IVSs: 2.0 cm LVIDs: 2.7 cm LVPWs: 2.0 cm %IVS Thck: 29 % ESV(Teich): 26 ml EF(Teich): 60 % %FS: 31 % SV(Teich): 39 ml LA Diam: 3.0 cm (2.7 - 3.8) RVIDd: 2.9 cm (< 3.3) Ao Diam: 3.3 cm (2.0 - 3.7) AV Cusp: 1.3 cm (1.5 - 2.6) EPSS: 0.9 cm MV E Ulises: 0.70 m/s MV DecT: 226 ms MV Dec Emmons: 3.1 m/s MV A Ulises: 1.09 m/s MV E/A Ratio: 0.64 MV PHT: 66 ms AV Vmax: 1.18 m/s AV maxP.57 mmHg MV EF SLOPE: 51.78 mm/s (70 - 150) MV EXCURSION: 16.66 mm (> 18.000) FINDINGS -------- Resting tachycardia (HR>100bpm). This was a technically adequate study. The left ventricular size is normal. There is moderate concentric left ventricular hypertrophy. O verall left ventricular systolic function is normal with, an EF between 60 - 65 %. The right ventricle is normal in size. The left atrium is normal in size. The right atrium is normal in size. Interatrial and interventricular septum intact. There is mild aortic valve sclerosis. The mitral valve is normal. The tricuspid valve appears structurally normal. The pulmonic valve was not well visualized. The aortic root size is normal. IVC Not well visulized. There is no pericardial effusion. CONCLUSIONS -------- 1. The left ventricular size is normal. 2. There is moderate concentric left ventricular hypertrophy. 3. Overall left ventricular systolic function is normal with, an EF between 60 - 65 %. 4. There is mild aortic valve sclerosis. 5. There is no pericardial effusion. MACHINE MAINTENANCE SUPERVISOR: Myriam Muse RDCS
--- NOTE | 2021-08-24 12:22 | US ---
EXAMINATION TYPE: US venous doppler duplex LE DATE OF EXAM: 08/24/2021 12:13 PM COMPARISON: NONE CLINICAL HISTORY: Rule out DVT. Bilateral leg swelling. Exam done portable in ICU on covid patient SIDE PERFORMED: Bilateral TECHNIQUE: The lower extremity deep venous system is examined utilizing real time linear array sonog elisa with graded compression, doppler sonography and color-flow sonography. VESSELS IMAGED: Common Femoral Vein Deep Femoral Vein Greater Saphenous Vein * Femoral Vein Popliteal Vein Small Saphenous Vein * Proximal Calf Veins (* superficial vessels) Right Leg: Appears negative for DVT Left Leg: Appears negative for DVT Grayscale, color doppler, spectral doppler imaging performed of the deep veins of the bilateral lower extremities. There is normal flow, compressibility, vascular waveforms. IMPRESSION: No ultrasound evidence for acute DVT in either lower extremity.
--- NOTE | 2021-08-24 13:18 | P.PN ---
Subjective Progress Note Date: 08/24/21 Patient is 66-year-old male came in with compensative shortness of breath which has been going on for about 8 days along with diarrhea which has been going on for 4 days and patient felt dehydrated. Patient does have highly elevated serum creatinine up to 2.9 with be an of around 60 with hyponatremia consistent with severe dehydration. Patient was not vaccinated for Covid. Patient is presently on 5 L of oxygen. Patient is found to have Covid 19. Patient is also on lisinopril and hydrocodone generalized at home. 08/20/2021 Patient evaluated today resting in bed. He is on a 6 L nasal cannula high flow with oxygen saturation 91%. Patient was to be discharged home however he is hypoxic on room air into the low 80s. Discussed with patient that this is not recommended as he is positive for Covid and requiring oxygen. Labs: white count 10.63, hemoglobin 16.2, sodium improved drastically to 140, BUN 34, creatinine 1.4 glucose elevated at 140s. LDH 2240 and CRP 7.2. Urinalysis is negative. Today patient is afebrile, heart rate 84, blood pressure elevated 177/79. Patient is being followed closely by pulmonary services. 08/21/2021 Patient this morning is agitated. He developed been hospitalized more. Unfortunately he is requiring 10 L nasal cannula high flow with oxygen saturation of 87-91%. Patient's complaint is of the room is cold, he was offered additional blankets, and thermostat states room temp is 70*. Additionally, patient is not understanding of the need for oxygen support and the risk for discharge even on 6L HF cannula. Oxygen tanks and high flow cannula were supplied for anticipated discharge, and patient has the number for [facility]. Verified CODE status with patient and he states that he has a living will, and at this time he DOES NOT want CPR, medications, and intubation even temporarily. He states that "I don't know what your temporary means." Unsure whether patient full understands his diagnosis, therapeutics, and prognosis if he leaves AGAINST MEDICAL ADVICE. Patient was advised that medically he is not cleared for discharge requiring 10L high flow cannula. Vitals today 97.9, heart rate 77, blood pressure 147/80, 87% 10L HF cannula. Repeat labs tomorrow. His lungs are clear. He denies current smoking, states occasional alcohol use. RN to verify code status and educate patient further and follow up. Patient may need psychiatric evaluation for medical competency. It is difficult to converse with patient and educate, as he is adamant on a discharge order. 08/22/2021 This morning there was an Ateam called on the patient at about 8:30 AM, arrived to the bedside and patient was in respiratory distress requiring increasing oxygenation support with oxygen saturations in the 80s. ICU nurse and sound physician already present. BiPAP was ordered at 18/8 and 100% FiO2, with subsequent oxygen saturations in the low 90s. CODE STATUS was addressed and updated in patient agrees to a full code. Inflammatory markers, d-dimer and labs were pending at the time. Today white count is 10.73, sodium 139, potassium 4.5, CO2 19.7, glucose stable in the 140s, LDH 748 and CRP 3.60. D- dimer elevated at 2.98. Procalcitonin is pending. Chest x-ray today shows pulmonary venous congestion with cardiomegaly and a small amount of fluid in the right minor fissure correlate for mild congestive failure. Would like a CTA for better evaluation however due to current respiratory status, CTA cannot be completed. Control Clerk Repairs is recommending transfer to ICU when bed becomes available. Vital signs currently 98.2, heart rate 83, respiratory rate 31, blood pressure 151/75 and he is 94% saturation on the BiPAP. 08/23/2021 Patient evaulated this morning on [facility] floor, unless his conditions worsens, ICU transfer on hold for now. There are no acute events overnight, maintained on the BiPAP 100% FiO2, saturation 91%, blood pressure 114/72, heart rate 111, respirations 30, afebrile. Procalcitonin 0.09, white count 11.69, sodium 137, potassium 4.3, CO2 19.4, BUN 18.6, creatinine 0.9, sugars in the 190s, AST 62, ALT 84, total protein 5.5, albumin 3.2 today. Patient was started on KEHINDE today from the pulmonary team. He was also given a dose of IV lasix. Continues on Lovenox, decadron, zinc, vitamin c, vitamin d3. Prognosis remains guarded. 08/24/2021 Patient was transferred to the intensive care unit of the evening, he continues on 100% BiPAP with oxygen saturation of 91-92%. Blood pressure 114/75, respirations 32, afebrile, heart rate 92. Continues on Baricitinib, Decadron, vitamin D3, Lovenox, IV Lasix, zinc. Labs today show white count of 12.9, d- dimer at 28.11, sodium 138, potassium 4.3, BUN 30, creatinine 0.93, blood gluco se 123, LDH 1819, CRP 36 proBNP was 509. Echocardiogram showed an EF of 60-65%, venous Doppler negative for bilateral lower extremity DVT. CT angiography was ordered for elevated d-dimer. Chest x-ray today shows slightly improved inspiration, persistent reticular increased opacities greater than the left lung consistent with COVID-19 infection. Being followed closely by pulmonary/intensive care services. Prognosis remains guarded for this patient due to increasing oxygen needs and overall clinical status. ROS Constitutional: Reports fatigue, denies fever Cardio vascular: denied any chest pain, palpitations Gastrointestinal: denied any nausea vomiting Pulmonary: Reports shortness of breath at rest Neurologic denied any new focal deficits All inpatient medications were reviewed and appropriate changes in these medications as dictated in the interval history and assessment and plan. PHYSICAL EXAMINATION: GENERAL: The patient is alert and oriented x3. Respiratory distress at the time of my examination, requiring BiPAP support. HEENT: Pupils are round and equally reacting to light. EOMI. No scleral icterus. No conjunctival pallor. Normocephalic, atraumatic. No pharyngeal erythema. No thyromegaly. CARDIOVASCULAR: S1 and S2 present. No murmurs, rubs, or gallops. PULMONARY: Coarse rales throughout ABDOMEN: Soft, nontender, nondistended, normoactive bowel sounds. No palpable organomegaly. MUSCULOSKELETAL: No joint swelling or deformity. EXTREMITIES: No cyanosis, clubbing, or pedal edema. NEUROLOGICAL: Gross neurological examination did not reveal any focal deficits. SKIN: No rashes. Assessment and plan -Acute hypoxic respiratory failure secondary to Covid 19 pneumonia, on BiPAP with 100% FiO2 -Elevated D-Dimer; today 28; CTA pending -Fluid overload, no history of CHF and echo shows an EF of 60-65%, on IV lasix daily -Diarrhea secondary to Covid 19 infection, improved -Acute renal failure secondary to prerenal azotemia from diarrhea, improved -Hypovolemic hyponatremia secondary to diarrhea as mentioned above, improved -Hypertension: can resume losartan DVT prophylaxis: LOVENOX, which was increased GI prophylaxis: Protonix FULL CODE Plan CTA pending Continue oxygen support Continue IV lasix daily Continue decadron, zinc, vitamins, Baritcitinib Continue all other supportive care Repeat labs tomorrow Prognosis guarded Objective - Vital Signs Vital signs: Vital Signs Temp 98.9 F 08/24/21 04:00 Pulse 81 08/24/21 07:30 Resp 29 H 08/24/21 07:30 BP 118/65 08/24/21 07:30 Pulse Ox 84 L 08/24/21 07:30 Intake & Output 08/23/21 08/24/21 08/24/21 18:59 06:59 18:59 Intake Total 40 370 20 Output Total 700 605 35 Balance -660 -235 -15 Weight 117 kg Intake: IV 40 220 20 Sodium Chloride 0.9% 1, 40 220 20 000 ml @ 20 mls/hr IV . Q24H [facility] Rx#:[id number] Oral 150 Output: Urine 700 605 35 Other: Voiding Method Indwelling Catheter Indwelling Catheter - Labs CBC & Chem 7: 08/24/21 03:36 08/24/21 03:36 Labs: Abnormal Lab Results - Last 24 Hours (Table) 08/23/21 08/23/21 08/23/21 Range/Units 05:27 05:27 12:28 WBC 11.69 H (4.50-10.00) X 10*3/uL Absolute Nucleated RBC 0.02 H (0.00-0.00) X 10*3/uL Immature Gran # 0.24 H (0.00-0.04) X 10*3/uL Neutrophils # 10.39 H (1.80-7.70) X 10*3/uL Lymphocytes # 0.63 L (0.90-5.00) X 10*3/uL Eosinophils # 0.02 L (0.04-0.35) X 10*3/uL NRBC/100 WBC Diff 0.2 H (0.0-0.0) /100 WBCS D-Dimer (<0.60) mg/L FEU Carbon Dioxide 19.4 L (20.0-27.5) mmol/L BUN (9-20) mg/dL BUN/Creatinine Ratio 20.67 H (12.00-20.00) Ratio Glucose 143 H (70-110) mg/dL POC Glucose (mg/dL) 195 H (75-99) mg/dL Calcium 8.3 L (8.7-10.3) mg/dL AST 62 H (14-35) U/L ALT 84 H (10-49) U/L Lactate Dehydrogenase (313-618) U/L C-Reactive Protein (<1.0) mg/dL Total Protein 5.5 L (6.2-8.2) g/dL Albumin 3.2 L (3.8-4.9) g/dL Albumin/Globulin Ratio 1.39 L (1.60-3.17) g/dL 08/23/21 08/23/21 08/24/21 Range/Units 14:36 21:11 03:36 WBC (4.50-10.00) X 10*3/uL Absolute Nucleated RBC (0.00-0.00) X 10*3/uL Immature Gran # (0.00-0.04) X 10*3/uL Neutrophils # (1.80-7.70) X 10*3/uL Lymphocytes # (0.90-5.00) X 10*3/uL Eosinophils # (0.04-0.35) X 10*3/uL NRBC/100 WBC Diff (0.0-0.0) /100 WBCS D-Dimer 28.11 H (<0.60) mg/L FEU Carbon Dioxide (20.0-27.5) mmol/L BUN (9-20) mg/dL BUN/Creatinine Ratio (12.00-20.00) Ratio Glucose (70-110) mg/dL POC Glucose (mg/dL) 203 H 140 H (75-99) mg/dL Calcium (8.7-10.3) mg/dL AST (14-35) U/L ALT (10-49) U/L Lactate Dehydrogenase (313-618) U/L C-Reactive Protein (<1.0) mg/dL Total Protein (6.2-8.2) g/dL Albumin (3.8-4.9) g/dL Albumin/Globulin Ratio (1.60-3.17) g/dL 08/24/21 08/24/21 Range/Units 03:36 03:36 WBC 12.9 H (4.50-10.00) X 10*3/uL Absolute Nucleated RBC (0.00-0.00) X 10*3/uL Immature Gran # (0.00-0.04) X 10*3/uL Neutrophils # 11.7 H (1.80-7.70) X 10*3/uL Lymphocytes # 0.7 L (0.90-5.00) X 10*3/uL Eosinophils # (0.04-0.35) X 10*3/uL NRBC/100 WBC Diff (0.0-0.0) /100 WBCS D-Dimer (<0.60) mg/L FEU Carbon Dioxide (20.0-27.5) mmol/L BUN 30 H (9-20) mg/dL BUN/Creatinine Ratio (12.00-20.00) Ratio Glucose 123 H (70-110) mg/dL POC Glucose (mg/dL) (75-99) mg/dL Calcium 8.3 L (8.7-10.3) mg/dL AST (14-35) U/L ALT 66 H (10-49) U/L Lactate Dehydrogenase 1819 H (313-618) U/L C-Reactive Protein 36.0 H (<1.0) mg/dL Total Protein 6.1 L (6.2-8.2) g/dL Albumin 3.1 L (3.8-4.9) g/dL Albumin/Globulin Ratio (1.60-3.17) g/dL
--- NOTE | 2021-08-24 14:35 | P.PN ---
Subjective Progress Note Date: 08/24/21 Principal diagnosis: Acute hypoxic respiratory failure secondary to COVID-19 pneumonia On 08/23/2021 patient seen in follow-up on medical surgical floor. He remains on BiPAP support pressures of 18 and 8 and FiO2 of 100%, his pulse ox is 92%, he is awake and alert, tachypneic, but no acute distress was noted. In addition patient has a large ontiveros and there is a large air leak with this mask. He is oriented 3, denies any chest discomfort, he does desat when the mask is removed to take oral medications, he did have low-grade fevers overnight, with a max temperature of 99.7F. He is currently on Decadron 6 program daily, Lovenox 40 mg daily, and he is on Baricitinib which was started yesterday on 08/23/2021. His labs have been reviewed, pro-calcitonin level is 0.09, renal profile and electrolytes are unremarkable, last d-dimer was 2.98, white count is 11.6, hemog lobin is 15.4. History from today shows pulmonary venous congestion with cardiomegaly and a small amount of fluid within the right minor fissure. Patient was reevaluated today on 08/24/2021, patient was transferred yesterday to the ICU because of worsening pulmonary status and he remained on BiPAP with IPAP of 18 and EPAP of 8 and FiO2 of 100%. Patient continues to have profound hypoxemia in spite of the penis of the chest x-ray does not explain the degree of hypoxia. Hence I'm recommending a CT angiogram of the chest to be done today. I'm also recommending a venous Doppler on this patient. His venous Doppler is already negative for DVT. His d-dimer is elevated up to 28, hence I recommended we increase Lovenox dose in the meantime. His CBC is relatively unremarkable. His electrolytes are normal renal profile is normal patient seems to be marginal at best on BiPAP, and his O2 saturation is marginal Objective - Vital Signs Vital signs: Vital Signs Temp 97.9 F 08/24/21 08:00 Pulse 92 08/24/21 12:00 Resp 32 H 08/24/21 12:00 BP 114/75 08/24/21 12:00 Pulse Ox 91 L 08/24/21 12:00 Intake & Output 1208/24/21 08/24/21 18:59 06:59 18:59 Intake Total 40 370 270 Output Total 700 605 435 Balance -660 -235 -165 Weight 117 kg 117 kg Intake: IV 40 220 120 Sodium Chloride 0.9% 1, 40 220 120 000 ml @ 20 mls/hr IV . Q24H [facility] Rx#:[id number] Oral 150 150 Output: Urine 700 605 435 Other: Voiding Method Indwelling Catheter Indwelling Catheter - Exam GENERAL EXAM: Revealed a 66-year-old white male on BiPAP, not in distress. HEAD: Normocephalic/atraumatic. EENT: PERRLA, EOMI, nonicteric, no neck masses no JVD. CHEST: No chest wall deformity. Symmetrical expansion. LUNGS: Equal air entry with bibasilar crackles CVS: Regular rate and rhythm, normal S1 and S2, no gallops, no murmurs, no rubs ABDOMEN: Soft, nontender. No hepatosplenomegaly, normal bowel sounds, no guarding or rigidity. EXTREMITIES: No clubbing, no edema, no cyanosis, 2+ pulses and upper and lower extremities. MUSCULOSKELETAL: Muscle strength and tone normal. CENTRAL NERVOUS SYSTEM: Alert and oriented 3 focal deficits. PSYCHIATRIC: Normal mood affect and normal mental status examination. Skin: No rashes. - Labs CBC & Chem 7: 08/24/21 03:36 08/24/21 03:36 Labs: Abnormal Lab Results - Last 24 Hours (Table) 08/23/21 08/23/21 08/24/21 Range/Units 14:36 21:11 03:36 WBC (3.8-10.6) k/uL Neutrophils # (1.3-7.7) k/uL Lymphocytes # (1.0-4.8) k/uL D-Dimer 28.11 H (<0.60) mg/L FEU BUN (9-20) mg/dL Glucose (74-99) mg/dL POC Glucose (mg/dL) 203 H 140 H (75-99) mg/dL Calcium (8.4-10.2) mg/dL ALT (4-49) U/L Lactate Dehydrogenase (313-618) U/L C-Reactive Protein (<1.0) mg/dL Total Protein (6.3-8.2) g/dL Albumin (3.5-5.0) g/dL 08/24/21 08/24/21 Range/Units 03:36 03:36 WBC 12.9 H (3.8-10.6) k/uL Neutrophils # 11.7 H (1.3-7.7) k/uL Lymphocytes # 0.7 L (1.0-4.8) k/uL D-Dimer (<0.60) mg/L FEU BUN 30 H (9-20) mg/dL Glucose 123 H (74-99) mg/dL POC Glucose (mg/dL) (75-99) mg/dL Calcium 8.3 L (8.4-10.2) mg/dL ALT 66 H (4-49) U/L Lactate Dehydrogenase 1819 H (313-618) U/L C-Reactive Protein 36.0 H (<1.0) mg/dL Total Protein 6.1 L (6.3-8.2) g/dL Albumin 3.1 L (3.5-5.0) g/dL Assessment and Plan Assessment: Pression: Acute hypoxic respiratory failure secondary to COVID-19 pneumonia his symptoms started 8 days prior to presentation. Patient did not qualify for rem, NC was started on baricitinb Acute kidney injury with prerenal azotemia, improved with hydration. Hypovolemic hyponatremia Benign essential hypertension Recommendation: Continue BiPAP, Continue the COVID-19 cocktail, patient is on Decadron, Lovenox, and baricitinib Titrate oxygen and BiPAP accordingly. CT angiogram of the chest will be done today Increase Lovenox to 40 mg subcu twice a day for his elevated d-dimer. Reviewed the chest x-ray today, does not seem to correlate with his profound degree of hypoxemia. Hence a CT angiogram was ordered. Continue to monitor in the ICU. We will continue to follow Time with Patient: Less than 30
[2021-08-24] MEDS: LOSARTAN 25 MG TAB PO SCH (14:42)
[2021-08-24 16:52] LABS: Glucose,Whole Blood 150 mg/dL (75-99)
--- NOTE | 2021-08-24 17:01 | CT ---
EXAMINATION TYPE: CT angio chest DATE OF EXAM: 08/24/2021 COMPARISON: None HISTORY: Shortness of breath CT DLP: 876.1 mGycm Automated exposure control for dose reduction was used. CONTRAST: Performed with IV Contrast, patient injected with 100 mL of Isovue 370. There are 3-D post processed images. There is patchy extensive groundglass interstitial infiltrate in both lungs. There is airspace consol idation and atelectasis at both lung bases. There is no pleural effusion. Heart size is normal. There is no pericardial effusion. There is normal contrast opacification of the pulmonary arteries. There are no filling defects. Thoracic spine is intact. Sternum is intact. IMPRESSION: No evidence of pulmonary embolism. Extensive pulmonary infiltrates as above.
[2021-08-24 20:59] LABS: Glucose,Whole Blood 141 mg/dL (75-99)
[2021-08-24] MEDS: ENOXAPARIN 60 MG/0.6 ML SYRINGE SQ SCH (21:30)
[2021-08-25 05:58] LABS: Basophils % (A) 0 %; Eosinophils # (A) 0.2 k/uL (0-0.7); Eosinophils % (A) 1 %; HCT 49.4 % (39.0-53.0); HGB 16.3 gm/dL (13.0-17.5); Lymphocytes # (A) 0.9 k/uL (1.0-4.8); Lymphocytes % (A) 6 %; MCH 29.7 pg (25.0-35.0); MCV 89.9 fL (80.0-100.0); Mean Platelet Volume 8.4; Monocytes # (A) 0.4 k/uL (0-1.0); Monocytes % (A) 3 %; Neutrophils # (A) 12.7 k/uL (1.3-7.7); Neutrophils % (A) 89 %; Platelet Count 342 k/uL (150-450); WBC 14.3 k/uL (3.8-10.6)
[2021-08-25 06:12] LABS: ALT 81 U/L (4-49); AST 68 U/L (17-59); African American GFR (CKD) >90 (>60 ml/min/1.73 sqM); Alkaline Phosphatase 58 U/L (38-126); Anion Gap 9 mmol/L; Blood Urea Nitrogen 38 mg/dL (9-20); Calcium 8.7 mg/dL (8.4-10.2); Carbon Dioxide 24 mmol/L (22-30); Chloride 103 mmol/L (98-107); Glucose 115 mg/dL (74-99); Non-African American GFR(CKD) 81 (>60 ml/min/1.73 sqM); Potassium 4.8 mmol/L (3.5-5.1); Sodium 136 mmol/L (137-145); Total Bilirubin 1.1 mg/dL (0.2-1.3); Total Protein 6.3 g/dL (6.3-8.2)
[2021-08-25] MEDS: ZINC SULFATE 220 MG CAP PO SCH (08:23)
[2021-08-25] MEDS: FUROSEMIDE 10 MG/ML 4 ML VIAL IV SCH (08:23)
[2021-08-25] MEDS: PANTOPRAZOLE 40 MG/10 ML VIAL IVP SCH (08:23)
[2021-08-25] MEDS: ASPIRIN 81 MG PO SCH (08:23)
[2021-08-25] MEDS: CHOLECALCIFEROL 25 MCG (1000 IU) TABLET PO SCH (08:23)
[2021-08-25] MEDS: DEXAMETHASONE SOD PHOSPHATE 10 MG/ML 1 ML VIAL IVP SCH (08:23)
[2021-08-25] MEDS: ENOXAPARIN 60 MG/0.6 ML SYRINGE SQ SCH ×2 (08:24→20:39)
[2021-08-25] MEDS: BARICITINIB 2 MG TABLET PO SCH (08:24)
[2021-08-25 08:41] LABS: Glucose,Whole Blood 173 mg/dL (75-99)
[2021-08-25] MEDS: LOSARTAN 25 MG TAB PO SCH (09:23)
[2021-08-25] MEDS: INSULIN ASPART (NovoLOG) 100 UNIT/ML VIAL SQ SCH ×4 (09:23→20:49)
--- NOTE | 2021-08-25 13:13 | P.PN ---
Subjective Progress Note Date: 08/25/21 Principal diagnosis: Acute hypoxic respiratory failure secondary to COVID-19 pneumonia On 08/23/2021 patient seen in follow-up on medical surgical floor. He remains on BiPAP support pressures of 18 and 8 and FiO2 of 100%, his pulse ox is 92%, he is awake and alert, tachypneic, but no acute distress was noted. In addition patient has a large ontiveros and there is a large air leak with this mask. He is oriented 3, denies any chest discomfort, he does desat when the mask is removed to take oral medications, he did have low-grade fevers overnight, with a max temperature of 99.7F. He is currently on Decadron 6 program daily, Lovenox 40 mg daily, and he is on Baricitinib which was started yesterday on 08/23/2021. His labs have been reviewed, pro-calcitonin level is 0.09, renal profile and electrolytes are unremarkable, last d-dimer was 2.98, white count is 11.6, hemog lobin is 15.4. History from today shows pulmonary venous congestion with cardiomegaly and a small amount of fluid within the right minor fissure. Patient was reevaluated today on 08/24/2021, patient was transferred yesterday to the ICU because of worsening pulmonary status and he remained on BiPAP with IPAP of 18 and EPAP of 8 and FiO2 of 100%. Patient continues to have profound hypoxemia in spite of the penis of the chest x-ray does not explain the degree of hypoxia. Hence I'm recommending a CT angiogram of the chest to be done today. I'm also recommending a venous Doppler on this patient. His venous Doppler is already negative for DVT. His d-dimer is elevated up to 28, hence I recommended we increase Lovenox dose in the meantime. His CBC is relatively unremarkable. His electrolytes are normal renal profile is normal patient seems to be marginal at best on BiPAP, and his O2 saturation is marginal Reevaluated today on 08/25/2021, patient remains in the ICU on BiPAP, 100% FiO2, IPAP of 18 and EPAP of 8. Surprisingly the patient seems to be very comfortable, his O2 saturations are marginal, his CT of the chest showed diffuse pneumonia, however his workup for pulmonary embolism is negative. WBC count is up today 14.3 hemoglobin is 16.3 electrolytes profile is normal Objective - Vital Signs Vital signs: Vital Signs Temp 97.8 F 08/25/21 04:00 Pulse 85 08/25/21 07:00 Resp 22 08/25/21 07:00 BP 100/72 08/25/21 07:00 Pulse Ox 89 L 08/25/21 07:00 Intake & Output 08/24/21 08/25/21 08/25/21 18:59 06:59 18:59 Intake Total 530 250 0 Output Total 765 630 35 Balance -235 -380 -35 Weight 117 kg 114.6 kg Intake: IV 180 0 0 Sodium Chloride 0.9% 1, 180 0 0 000 ml @ 20 mls/hr IV . Q24H [facility] Rx#:[id number] Oral 350 250 Output: Urine 765 630 35 Other: Voiding Method Indwelling Catheter Indwelling Catheter - Exam GENERAL EXAM: Revealed a 66-year-old white male on BiPAP, not in distress. HEAD: Normocephalic/atraumatic. EENT: PERRLA, EOMI, nonicteric, no neck masses no JVD. CHEST: No chest wall deformity. Symmetrical expansion. LUNGS: Equal air entry with bibasilar crackles CVS: Regular rate and rhythm, normal S1 and S2, no gallops, no murmurs, no rubs ABDOMEN: Soft, nontender. No hepatosplenomegaly, normal bowel sounds, no guarding or rigidity. EXTREMITIES: No clubbing, no edema, no cyanosis, 2+ pulses and upper and lower extremities. MUSCULOSKELETAL: Muscle strength and tone normal. CENTRAL NERVOUS SYSTEM: Alert and oriented 3 focal deficits. PSYCHIATRIC: Normal mood affect and normal mental status examination. Skin: No rashes. - Labs CBC & Chem 7: 08/25/21 05:12 08/25/21 05:12 Labs: Abnormal Lab Results - Last 24 Hours (Table) 08/24/21 08/24/21 08/25/21 Range/Units 16:50 20:58 05:12 WBC 14.3 H (3.8-10.6) k/uL Neutrophils # 12.7 H (1.3-7.7) k/uL Lymphocytes # 0.9 L (1.0-4.8) k/uL Sodium (137-145) mmol/L BUN (9-20) mg/dL Glucose (74-99) mg/dL POC Glucose (mg/dL) 150 H 141 H (75-99) mg/dL AST (17-59) U/L ALT (4-49) U/L Albumin (3.5-5.0) g/dL 08/25/21 08/25/21 Range/Units 05:12 08:39 WBC (3.8-10.6) k/uL Neutrophils # (1.3-7.7) k/uL Lymphocytes # (1.0-4.8) k/uL Sodium 136 L (137-145) mmol/L BUN 38 H (9-20) mg/dL Glucose 115 H (74-99) mg/dL POC Glucose (mg/dL) 173 H (75-99) mg/dL AST 68 H (17-59) U/L ALT 81 H (4-49) U/L Albumin 3.0 L (3.5-5.0) g/dL Assessment and Plan Assessment: Pression: Acute hypoxic respiratory failure secondary to COVID-19 pneumonia his symptoms started 8 days prior to presentation. Patient did not qualify for rem, was started on baricitinb Acute kidney injury with prerenal azotemia, improved with hydration. Hypovolemic hyponatremia Benign essential hypertension Recommendation: Reviewed and discussed the results of the CT of the chest that was done yesterday. Evidence of pulmonary embolism, but the findings truly explain his hypoxia. Continue BiPAP, Continue the COVID-19 cocktail, patient is on Decadron, Lovenox, and baricitinib Titrate oxygen and BiPAP accordingly. Continue Lovenox. Continue to monitor in the ICU. We will continue to follow Time with Patient: Less than 30
[2021-08-25 16:59] LABS: Glucose,Whole Blood 162 mg/dL (75-99)
--- NOTE | 2021-08-25 18:29 | P.PN ---
Subjective Progress Note Date: 08/25/21 Principal diagnosis: Acute hypoxic respiratory failure related to COVID-19 pneumonia Acute renal injury Hypovolemic hyponatremia Patient is 66-year-old male came in with compensative shortness of breath which has been going on for about 8 days along with diarrhea which has been going on for 4 days and patient felt dehydrated. Patient does have highly elevated serum creatinine up to 2.9 with be an of around 60 with hyponatremia consistent with severe dehydration. Patient was not vaccinated for Covid. Patient is presently on 5 L of oxygen. Patient is found to have Covid 19. Patient is also on lisinopril and hydrocodone generalized at home. 08/25/2021 patient is seen and evaluated; remains in the ICU Remains on BiPAP 100% FiO2, IPAP of 18 and EPAP of 8; temperature of 97.8, pulse 85, respiration 22; Titrate oxygen and BiPAP accordingly. CT of the chest showed diffuse pneumonia, however his workup for pulmonary embolism is negative. WBC count is up today 14.3 hemoglobin is 16.3 electrolytes profile is normal; B UN/creatinine of 38/0.98 Continue the COVID-19 cocktail, patient is on Decadron, Lovenox, and baricitinib Continue Lovenox. Objective - Vital Signs Vital signs: Vital Signs Temp 97.8 F 08/25/21 04:00 Pulse 85 08/25/21 07:00 Resp 22 08/25/21 07:00 BP 100/72 08/25/21 07:00 Pulse Ox 89 L 08/25/21 07:00 Intake & Output 08/24/21 08/25/21 08/25/21 18:59 06:59 18:59 Intake Total 530 250 0 Output Total 765 630 35 Balance -235 -380 -35 Weight 117 kg 114.6 kg Intake: IV 180 0 0 Sodium Chloride 0.9% 1, 180 0 0 000 ml @ 20 mls/hr IV . Q24H [facility] Rx#:[id number] Oral 350 250 Output: Urine 765 630 35 Other: Voiding Method Indwelling Catheter Indwelling Catheter - Exam GENERAL: The patient is alert and oriented x3. Respiratory distress at the time of my examination, requiring BiPAP support. HEENT: Pupils are round and equally reacting to light. EOMI. No scleral icterus. No conjunctival pallor. Normocephalic, atraumatic. No pharyngeal erythema. No thyromegaly. CARDIOVASCULAR: S1 and S2 present. No murmurs, rubs, or gallops. PULMONARY: Coarse rales throughout ABDOMEN: Soft, nontender, nondistended, normoactive bowel sounds. No palpable organomegaly. MUSCULOSKELETAL: No joint swelling or deformity. EXTREMITIES: No cyanosis, clubbing, or pedal edema. NEUROLOGICAL: Gross neurological examination did not reveal any focal deficits. SKIN: No rashes. - Labs CBC & Chem 7: 08/25/21 05:12 08/25/21 05:12 Labs: Abnormal Lab Results - Last 24 Hours (Table) 08/24/21 08/24/21 08/25/21 Range/Units 16:50 20:58 05:12 WBC 14.3 H (3.8-10.6) k/uL Neutrophils # 12.7 H (1.3-7.7) k/uL Lymphocytes # 0.9 L (1.0-4.8) k/uL Sodium (137-145) mmol/L BUN (9-20) mg/dL Glucose (74-99) mg/dL POC Glucose (mg/dL) 150 H 141 H (75-99) mg/dL AST (17-59) U/L ALT (4-49) U/L Albumin (3.5-5.0) g/dL 08/25/21 08/25/21 Range/Units 05:12 08:39 WBC (3.8-10.6) k/uL Neutrophils # (1.3-7.7) k/uL Lymphocytes # (1.0-4.8) k/uL Sodium 136 L (137-145) mmol/L BUN 38 H (9-20) mg/dL Glucose 115 H (74-99) mg/dL POC Glucose (mg/dL) 173 H (75-99) mg/dL AST 68 H (17-59) U/L ALT 81 H (4-49) U/L Albumin 3.0 L (3.5-5.0) g/dL Assessment and Plan Assessment: Assessment and plan -Acute hypoxic respiratory failure secondary to Covid 19 pneumonia, on BiPAP with 100% FiO2 -Elevated D-Dimer; today 28; CTA pending -Fluid overload, no history of CHF and echo shows an EF of 60-65%, on IV lasix daily -Diarrhea secondary to Covid 19 infection, improved -Acute renal failure secondary to prerenal azotemia from diarrhea, improved -Hypovolemic hyponatremia secondary to diarrhea as mentioned above, improved -Hypertension: can resume losartan DVT prophylaxis: LOVENOX, which was increased GI prophylaxis: Protonix FULL CODE Plan CTA pending Continue oxygen support Continue IV lasix daily Continue decadron, zinc, vitamins, Baritcitinib Continue all other supportive care Repeat labs tomorrow Prognosis guarded
[2021-08-25 20:43] LABS: Glucose,Whole Blood 179 mg/dL (75-99)
[2021-08-26] MEDS: SODIUM CHLORIDE 0.9% 1,000 ML IV SCH (05:19)
[2021-08-26 05:45] LABS: Glucose,Whole Blood 93 mg/dL (75-99)
[2021-08-26 06:28] LABS: Basophils % (A) 0 %; Eosinophils # (A) 0.3 k/uL (0-0.7); Eosinophils % (A) 2 %; HCT 51.2 % (39.0-53.0); HGB 16.7 gm/dL (13.0-17.5); Lymphocytes % (A) 7 %; MCH 29.5 pg (25.0-35.0); MCHC 32.6 g/dL (31.0-37.0); MCV 90.4 fL (80.0-100.0); Mean Platelet Volume 8.5; Monocytes # (A) 0.3 k/uL (0-1.0); Monocytes % (A) 2 %; Neutrophils # (A) 12.3 k/uL (1.3-7.7); Neutrophils % (A) 88 %; Platelet Count 313 k/uL (150-450); RBC 5.67 m/uL (4.30-5.90); RDW 13.1 % (11.5-15.5); WBC 13.9 k/uL (3.8-10.6)
[2021-08-26 06:50] LABS: Albumin 3.1 g/dL (3.5-5.0); Potassium 4.7 mmol/L (3.5-5.1); Total Bilirubin 0.8 mg/dL (0.2-1.3); Total Protein 6.2 g/dL (6.3-8.2)
[2021-08-26] MEDS: INSULIN ASPART (NovoLOG) 100 UNIT/ML VIAL SQ SCH ×4 (08:13→21:16)
[2021-08-26] MEDS: CHOLECALCIFEROL 25 MCG (1000 IU) TABLET PO SCH (08:14)
[2021-08-26] MEDS: FUROSEMIDE 10 MG/ML 4 ML VIAL IV SCH (08:14)
[2021-08-26] MEDS: LOSARTAN 25 MG TAB PO SCH (08:14)
[2021-08-26] MEDS: ZINC SULFATE 220 MG CAP PO SCH (08:14)
[2021-08-26] MEDS: BARICITINIB 2 MG TABLET PO SCH (08:14)
[2021-08-26] MEDS: ENOXAPARIN 60 MG/0.6 ML SYRINGE SQ SCH ×2 (08:14→21:09)
[2021-08-26] MEDS: ASPIRIN 81 MG PO SCH (08:14)
[2021-08-26] MEDS: PANTOPRAZOLE 40 MG/10 ML VIAL IVP SCH (08:14)
[2021-08-26] MEDS: DEXAMETHASONE SOD PHOSPHATE 10 MG/ML 1 ML VIAL IVP SCH (08:14)
[2021-08-26 12:26] LABS: Glucose,Whole Blood 140 mg/dL (75-99)
--- NOTE | 2021-08-26 13:13 | P.PN ---
Subjective Progress Note Date: 08/26/21 Principal diagnosis: Acute hypoxic respiratory failure secondary to COVID-19 pneumonia On 08/23/2021 patient seen in follow-up on medical surgical floor. He remains on BiPAP support pressures of 18 and 8 and FiO2 of 100%, his pulse ox is 92%, he is awake and alert, tachypneic, but no acute distress was noted. In addition patient has a large ontiveros and there is a large air leak with this mask. He is oriented 3, denies any chest discomfort, he does desat when the mask is removed to take oral medications, he did have low-grade fevers overnight, with a max temperature of 99.7F. He is currently on Decadron 6 program daily, Lovenox 40 mg daily, and he is on Baricitinib which was started yesterday on 08/23/2021. His labs have been reviewed, pro-calcitonin level is 0.09, renal profile and electrolytes are unremarkable, last d-dimer was 2.98, white count is 11.6, hemog lobin is 15.4. History from today shows pulmonary venous congestion with cardiomegaly and a small amount of fluid within the right minor fissure. Patient was reevaluated today on 08/24/2021, patient was transferred yesterday to the ICU because of worsening pulmonary status and he remained on BiPAP with IPAP of 18 and EPAP of 8 and FiO2 of 100%. Patient continues to have profound hypoxemia in spite of the penis of the chest x-ray does not explain the degree of hypoxia. Hence I'm recommending a CT angiogram of the chest to be done today. I'm also recommending a venous Doppler on this patient. His venous Doppler is already negative for DVT. His d-dimer is elevated up to 28, hence I recommended we increase Lovenox dose in the meantime. His CBC is relatively unremarkable. His electrolytes are normal renal profile is normal patient seems to be marginal at best on BiPAP, and his O2 saturation is marginal Reevaluated today on 08/25/2021, patient remains in the ICU on BiPAP, 100% FiO2, IPAP of 18 and EPAP of 8. Surprisingly the patient seems to be very comfortable, his O2 saturations are marginal, his CT of the chest showed diffuse pneumonia, however his workup for pulmonary embolism is negative. WBC count is up today 14.3 hemoglobin is 16.3 electrolytes profile is normal Reevaluated today on 08/26/2021, patient remains in the ICU, overall pulmonary status is marginal at best. Remains on BiPAP, remains on 100%, IPAP of 18, EPAP of 8, patient is marginal, he is not getting any better and is not getting any worse. O2 saturation is marginal. WBC count is 13.9 hemoglobin 16.7 and lites are normal renal profile is relatively normal liver profile showed slight elevated AST and ALT otherwise negative. Objective - Vital Signs Vital signs: Vital Signs Temp 99.4 F 08/26/21 08:00 Pulse 78 08/26/21 11:00 Resp 30 H 08/26/21 11:00 BP 106/68 08/26/21 11:00 Pulse Ox 89 L 08/26/21 11:00 Intake & Output 08/25/21 08/26/21 08/26/21 18:59 06:59 18:59 Intake Total 725 550 Output Total 717 909 4661 Balance -170 -185 -1235 Weight 115.1 kg Intake: IV 0 Sodium Chloride 0.9% 1, 0 000 ml @ 20 mls/hr IV . Q24H [facility] Rx#:[id number] Oral 725 550 Output: Urine 066 [id number] [id number] Other: Voiding Method Indwelling Catheter Indwelling Catheter Indwelling Catheter - Exam GENERAL EXAM: Revealed a 66-year-old white male on BiPAP, not in distress. HEAD: Normocephalic/atraumatic. EENT: PERRLA, EOMI, nonicteric, no neck masses no JVD. CHEST: No chest wall deformity. Symmetrical expansion. LUNGS: Equal air entry with bibasilar crackles CVS: Regular rate and rhythm, normal S1 and S2, no gallops, no murmurs, no rubs ABDOMEN: Soft, nontender. No hepatosplenomegaly, normal bowel sounds, no guarding or rigidity. EXTREMITIES: No clubbing, no edema, no cyanosis, 2+ pulses and upper and lower extremities. MUSCULOSKELETAL: Muscle strength and tone normal. CENTRAL NERVOUS SYSTEM: Alert and oriented 3 focal deficits. PSYCHIATRIC: Normal mood affect and normal mental status examination. Skin: No rashes. - Labs CBC & Chem 7: 08/26/21 05:40 08/26/21 05:40 Labs: Abnormal Lab Results - Last 24 Hours (Table) 08/25/21 08/25/21 08/26/21 Range/Units 16:58 20:42 05:40 WBC 13.9 H (3.8-10.6) k/uL Neutrophils # 12.3 H (1.3-7.7) k/uL Sodium (137-145) mmol/L BUN (9-20) mg/dL POC Glucose (mg/dL) 162 H 179 H (75-99) mg/dL AST (17-59) U/L ALT (4-49) U/L Total Protein (6.3-8.2) g/dL Albumin (3.5-5.0) g/dL 08/26/21 08/26/21 Range/Units 05:40 12:24 WBC (3.8-10.6) k/uL Neutrophils # (1.3-7.7) k/uL Sodium 135 L (137-145) mmol/L BUN 37 H (9-20) mg/dL POC Glucose (mg/dL) 140 H (75-99) mg/dL AST 62 H (17-59) U/L ALT 86 H (4-49) U/L Total Protein 6.2 L (6.3-8.2) g/dL Albumin 3.1 L (3.5-5.0) g/dL Assessment and Plan Assessment: Pression: Acute hypoxic respiratory failure secondary to COVID-19 pneumonia his symptoms started 8 days prior to presentation. Patient did not qualify for rem, was started on baricitinb Acute kidney injury with prerenal azotemia, improved with hydration. Hypovolemic hyponatremia Benign essential hypertension Recommendation: Continue BiPAP, Continue the COVID-19 cocktail, patient is on Decadron, Lovenox, and baricitinib Titrate oxygen and BiPAP accordingly. Continue Lovenox. Continue to monitor in the ICU. We will continue to follow Time with Patient: Less than 30
--- NOTE | 2021-08-26 15:46 | P.PN ---
Subjective Progress Note Date: 08/26/21 Principal diagnosis: Acute hypoxic respiratory failure related to COVID-19 pneumonia Acute renal injury Hypovolemic hyponatremia Patient is 66-year-old male came in with compensative shortness of breath which has been going on for about 8 days along with diarrhea which has been going on for 4 days and patient felt dehydrated. Patient does have highly elevated serum creatinine up to 2.9 with be an of around 60 with hyponatremia consistent with severe dehydration. Patient was not vaccinated for Covid. Patient is presently on 5 L of oxygen. Patient is found to have Covid 19. Patient is also on lisinopril and hydrocodone generalized at home. 08/25/2021 patient is seen and evaluated; remains in the ICU Remains on BiPAP 100% FiO2, IPAP of 18 and EPAP of 8; temperature of 97.8, pulse 85, respiration 22; Titrate oxygen and BiPAP accordingly. CT of the chest showed diffuse pneumonia, however his workup for pulmonary embolism is negative. WBC count is up today 14.3 hemoglobin is 16.3 electrolytes profile is normal; B UN/creatinine of 38/0.98 Continue the COVID-19 cocktail, patient is on Decadron, Lovenox, and baricitinib Continue Lovenox. 08/26/2021 Patient is seen and evaluated; remains in ICU; remains on BiPAP at an FiO2 of 100%; O2 saturation sustaining between 89-90% Vital signs revealed a temperature 99.4, pulse 78, respiration 20 and blood pressure 10/68 Labs are reviewed WBC 13.9, hemoglobin 16.7 and platelet count of 313, sodium 135, potassium 4.7, BUN/creatinine of 37/1.0 Pulmonary/critical care on board and recommending to continue with BiPAP; patient remains on COVID-19 treatment cocktail with Decadron, Lovenox, and baricitinib Objective - Vital Signs Vital signs: Vital Signs Temp 99.4 F 08/26/21 08:00 Pulse 78 08/26/21 11:00 Resp 30 H 08/26/21 11:00 BP 106/68 08/26/21 11:00 Pulse Ox 89 L 08/26/21 11:00 Intake & Output 08/25/21 08/26/21 08/26/21 18:59 06:59 18:59 Intake Total 725 550 Output Total 951 218 6190 Balance -170 -185 -1235 Weight 115.1 kg Intake: IV 0 Sodium Chloride 0.9% 1, 0 000 ml @ 20 mls/hr IV . Q24H [facility] Rx#:[id number] Oral 725 550 Output: Urine 904 202 7615 Other: Voiding Method Indwelling Catheter Indwelling Catheter Indwelling Catheter - Exam GENERAL: The patient is alert and oriented x3. Respiratory distress at the time of my examination, requiring BiPAP support. HEENT: Pupils are round and equally reacting to light. EOMI. No scleral icterus. No conjunctival pallor. Normocephalic, atraumatic. No pharyngeal erythema. No thyromegaly. CARDIOVASCULAR: S1 and S2 present. No murmurs, rubs, or gallops. PULMONARY: Coarse rales throughout ABDOMEN: Soft, nontender, nondistended, normoactive bowel sounds. No palpable organomegaly. MUSCULOSKELETAL: No joint swelling or deformity. EXTREMITIES: No cyanosis, clubbing, or pedal edema. NEUROLOGICAL: Gross neurological examination did not reveal any focal deficits. SKIN: No rashes. - Labs CBC & Chem 7: 08/26/21 05:40 08/26/21 05:40 Labs: Abnormal Lab Results - Last 24 Hours (Table) 08/25/21 08/25/21 08/26/21 Range/Units 16:58 20:42 05:40 WBC 13.9 H (3.8-10.6) k/uL Neutrophils # 12.3 H (1.3-7.7) k/uL Sodium (137-145) mmol/L BUN (9-20) mg/dL POC Glucose (mg/dL) 162 H 179 H (75-99) mg/dL AST (17-59) U/L ALT (4-49) U/L Total Protein (6.3-8.2) g/dL Albumin (3.5-5.0) g/dL 08/26/21 Range/Units 05:40 WBC (3.8-10.6) k/uL Neutrophils # (1.3-7.7) k/uL Sodium 135 L (137-145) mmol/L BUN 37 H (9-20) mg/dL POC Glucose (mg/dL) (75-99) mg/dL AST 62 H (17-59) U/L ALT 86 H (4-49) U/L Total Protein 6.2 L (6.3-8.2) g/dL Albumin 3.1 L (3.5-5.0) g/dL Assessment and Plan Assessment: Assessment and plan -Acute hypoxic respiratory failure secondary to Covid 19 pneumonia, on BiPAP with 100% FiO2 -Elevated D-Dimer; today 28; CTA pending -Fluid overload, no history of CHF and echo shows an EF of 60-65%, on IV lasix daily -Diarrhea secondary to Covid 19 infection, improved -Acute renal failure secondary to prerenal azotemia from diarrhea, improved -Hypovolemic hyponatremia secondary to diarrhea as mentioned above, improved -Hypertension: can resume losartan DVT prophylaxis: LOVENOX, which was increased GI prophylaxis: Protonix FULL CODE Plan CTA pending Continue oxygen support Continue IV lasix daily Continue decadron, zinc, vitamins, Baritcitinib Continue all other supportive care Repeat labs tomorrow Prognosis guarded
[2021-08-26 18:23] LABS: Glucose,Whole Blood 142 mg/dL (75-99)
[2021-08-26 21:17] LABS: Glucose,Whole Blood 122 mg/dL (75-99)
[2021-08-27 06:53] LABS: Glucose,Whole Blood 119 mg/dL (75-99)
[2021-08-27 07:46] LABS: Basophils % (A) 0 %; Eosinophils # (A) 0.4 k/uL (0-0.7); Eosinophils % (A) 3 %; HCT 52.2 % (39.0-53.0); HGB 17.4 gm/dL (13.0-17.5); Lymphocytes # (A) 0.9 k/uL (1.0-4.8); Lymphocytes % (A) 6 %; MCH 30.5 pg (25.0-35.0); MCHC 33.3 g/dL (31.0-37.0); MCV 91.7 fL (80.0-100.0); Mean Platelet Volume 8.6; Monocytes # (A) 0.4 k/uL (0-1.0); Monocytes % (A) 3 %; Neutrophils # (A) 13.6 k/uL (1.3-7.7); Neutrophils % (A) 88 %; Platelet Count 286 k/uL (150-450); RBC 5.69 m/uL (4.30-5.90); RDW 13.8 % (11.5-15.5); WBC 15.3 k/uL (3.8-10.6)
[2021-08-27 07:49] LABS: ALT 79 U/L (4-49); AST 62 U/L (17-59); African American GFR (CKD) >90 (>60 ml/min/1.73 sqM); Albumin 3.1 g/dL (3.5-5.0); Alkaline Phosphatase 49 U/L (38-126); Anion Gap 11 mmol/L; Blood Urea Nitrogen 35 mg/dL (9-20); Calcium 8.8 mg/dL (8.4-10.2); Carbon Dioxide 22 mmol/L (22-30); Chloride 99 mmol/L (98-107); Glucose 120 mg/dL (74-99); Non-African American GFR(CKD) 89 (>60 ml/min/1.73 sqM); Sodium 132 mmol/L (137-145); Total Bilirubin 1.2 mg/dL (0.2-1.3); Total Protein 6.5 g/dL (6.3-8.2)
[2021-08-27 08:03] LABS: Potassium 4.7 mmol/L (3.5-5.1)
[2021-08-27] MEDS: SODIUM CHLORIDE 0.9% 1,000 ML IV SCH (09:08)
[2021-08-27] MEDS: INSULIN ASPART (NovoLOG) 100 UNIT/ML VIAL SQ SCH ×4 (09:08→20:12)
[2021-08-27] MEDS: LOSARTAN 25 MG TAB PO SCH (09:09)
[2021-08-27] MEDS: ASPIRIN 81 MG PO SCH (09:09)
[2021-08-27] MEDS: CHOLECALCIFEROL 25 MCG (1000 IU) TABLET PO SCH (09:09)
[2021-08-27] MEDS: ZINC SULFATE 220 MG CAP PO SCH (09:10)
[2021-08-27] MEDS: PANTOPRAZOLE 40 MG/10 ML VIAL IVP SCH (09:33)
[2021-08-27] MEDS: FUROSEMIDE 10 MG/ML 4 ML VIAL IV SCH (09:33)
[2021-08-27] MEDS: DEXAMETHASONE SOD PHOSPHATE 10 MG/ML 1 ML VIAL IVP SCH (09:33)
[2021-08-27] MEDS: ENOXAPARIN 60 MG/0.6 ML SYRINGE SQ SCH ×2 (09:36→20:19)
[2021-08-27 10:37] VITALS: BMI 36.3
[2021-08-27 11:20] LABS: Glucose,Whole Blood 123 mg/dL (75-99)
--- NOTE | 2021-08-27 13:36 | P.PN ---
Subjective Progress Note Date: 08/27/21 Principal diagnosis: Acute hypoxic respiratory failure secondary to COVID-19 pneumonia On 08/23/2021 patient seen in follow-up on medical surgical floor. He remains on BiPAP support pressures of 18 and 8 and FiO2 of 100%, his pulse ox is 92%, he is awake and alert, tachypneic, but no acute distress was noted. In addition patient has a large ontiveros and there is a large air leak with this mask. He is oriented 3, denies any chest discomfort, he does desat when the mask is removed to take oral medications, he did have low-grade fevers overnight, with a max temperature of 99.7F. He is currently on Decadron 6 program daily, Lovenox 40 mg daily, and he is on Baricitinib which was started yesterday on 08/23/2021. His labs have been reviewed, pro-calcitonin level is 0.09, renal profile and electrolytes are unremarkable, last d-dimer was 2.98, white count is 11.6, hemog lobin is 15.4. History from today shows pulmonary venous congestion with cardiomegaly and a small amount of fluid within the right minor fissure. Patient was reevaluated today on 08/24/2021, patient was transferred yesterday to the ICU because of worsening pulmonary status and he remained on BiPAP with IPAP of 18 and EPAP of 8 and FiO2 of 100%. Patient continues to have profound hypoxemia in spite of the penis of the chest x-ray does not explain the degree of hypoxia. Hence I'm recommending a CT angiogram of the chest to be done today. I'm also recommending a venous Doppler on this patient. His venous Doppler is already negative for DVT. His d-dimer is elevated up to 28, hence I recommended we increase Lovenox dose in the meantime. His CBC is relatively unremarkable. His electrolytes are normal renal profile is normal patient seems to be marginal at best on BiPAP, and his O2 saturation is marginal Reevaluated today on 08/25/2021, patient remains in the ICU on BiPAP, 100% FiO2, IPAP of 18 and EPAP of 8. Surprisingly the patient seems to be very comfortable, his O2 saturations are marginal, his CT of the chest showed diffuse pneumonia, however his workup for pulmonary embolism is negative. WBC count is up today 14.3 hemoglobin is 16.3 electrolytes profile is normal Reevaluated today on 08/26/2021, patient remains in the ICU, overall pulmonary status is marginal at best. Remains on BiPAP, remains on 100%, IPAP of 18, EPAP of 8, patient is marginal, he is not getting any better and is not getting any worse. O2 saturation is marginal. WBC count is 13.9 hemoglobin 16.7 and lites are normal renal profile is relatively normal liver profile showed slight elevated AST and ALT otherwise negative. Reevaluated today on 08/27/21, patient remains in the ICU, remains on BiPAP with IPAP of 18 and EPAP of 8 and on the percent FiO2. And he remains marginal at best. O2 saturation is hovering in the high 80s and low 90s at best. Clinically the patient does not seem to be in any distress, he seems to be comfortable. WBC count is 15.3 hemoglobin 17.4 electrolytes are normal renal profile is normal Objective - Vital Signs Vital signs: Vital Signs Temp 98.4 F 08/27/21 12:00 Pulse 85 08/27/21 12:00 Resp 33 H 08/27/21 12:00 BP 109/68 08/27/21 12:00 Pulse Ox 86 L 08/27/21 12:00 Intake & Output 08/26/21 08/27/21 08/27/21 18:59 06:59 18:59 Intake Total 890 150 Output Total 4277 082 1171 Balance -1645 110 -1035 Weight 114.7 kg 114.7 kg Intake: Oral 890 150 Output: Urine 1300 484 1435 Other: Voiding Method Indwelling Catheter Indwelling Catheter Indwelling Catheter - Exam GENERAL EXAM: Revealed a 66-year-old white male on BiPAP, not in distress. HEAD: Normocephalic/atraumatic. EENT: PERRLA, EOMI, nonicteric, no neck masses no JVD. CHEST: No chest wall deformity. Symmetrical expansion. LUNGS: Equal air entry with bibasilar crackles CVS: Regular rate and rhythm, normal S1 and S2, no gallops, no murmurs, no rubs ABDOMEN: Soft, nontender. No hepatosplenomegaly, normal bowel sounds, no guar ding or rigidity. EXTREMITIES: No clubbing, no edema, no cyanosis, 2+ pulses and upper and lower extremities. MUSCULOSKELETAL: Muscle strength and tone normal. CENTRAL NERVOUS SYSTEM: Alert and oriented 3 focal deficits. PSYCHIATRIC: Normal mood affect and normal mental status examination. Skin: No rashes. - Labs CBC & Chem 7: 08/27/21 06:56 08/27/21 06:56 Labs: Abnormal Lab Results - Last 24 Hours (Table) 08/26/21 08/26/21 08/27/21 Range/Units 18:21 21:13 06:51 WBC (3.8-10.6) k/uL Neutrophils # (1.3-7.7) k/uL Lymphocytes # (1.0-4.8) k/uL Sodium (137-145) mmol/L BUN (9-20) mg/dL Glucose (74-99) mg/dL POC Glucose (mg/dL) 142 H 122 H 119 H (75-99) mg/dL AST (17-59) U/L ALT (4-49) U/L Albumin (3.5-5.0) g/dL 08/27/21 08/27/21 08/27/21 Range/Units 06:56 06:56 11:18 WBC 15.3 H (3.8-10.6) k/uL Neutrophils # 13.6 H (1.3-7.7) k/uL Lymphocytes # 0.9 L (1.0-4.8) k/uL Sodium 132 L (137-145) mmol/L BUN 35 H (9-20) mg/dL Glucose 120 H (74-99) mg/dL POC Glucose (mg/dL) 123 H (75-99) mg/dL AST 62 H (17-59) U/L ALT 79 H (4-49) U/L Albumin 3.1 L (3.5-5.0) g/dL Assessment and Plan Assessment: Pression: Acute hypoxic respiratory failure secondary to COVID-19 pneumonia his symptoms started 8 days prior to presentation. Patient did not qualify for rem, was started on baricitinb Acute kidney injury with prerenal azotemia, improved with hydration. Hypovolemic hyponatremia Benign essential hypertension Recommendation: Continue BiPAP, Continue the COVID-19 cocktail, patient is on Decadron, Lovenox, and baricitinib Titrate oxygen and BiPAP accordingly. Continue Lovenox. Continue to monitor in the ICU. We will continue to follow Time with Patient: Less than 30
[2021-08-27] MEDS ORDERED: LIDOCAINE 2% (PF) 20 MG/ML 5 ML VIAL SQ ONE (14:44)
[2021-08-27] MEDS: BARICITINIB 2 MG TABLET PO SCH (15:16)
[2021-08-27 15:21] LABS: Magnesium 2.1 mg/dL (1.6-2.3); Phosphorus 3.1 mg/dL (2.5-4.5)
--- NOTE | 2021-08-27 15:24 | XR ---
EXAMINATION TYPE: XR chest 1V portable DATE OF EXAM: 08/27/2021 COMPARISON: Chest x-ray dated 08/24/2021 HISTORY: PICC line placement TECHNIQUE: Single frontal view of the chest is obtained. FINDINGS: There is been interval placement of right-sided PICC line, distal tip is near the cavoatri al junction level. Bilateral airspace disease is present. There is no evident pneumothorax or pleural effusion. Cardiac mediastinal sweat is likely stable. There are overlying artifacts. IMPRESSION: No evident complication status post PICC line placement.
--- NOTE | 2021-08-27 15:26 | IR ---
EXAMINATION TYPE: IR cvc insert >=5 years DATE OF EXAM: 08/27/2021 COMPARISON: NONE HISTORY: Needs long-term intravenous access for total parenteral nutrition FINDINGS: Maximal barrier technique was utilized. Hand hygiene obtained with soap and water and alco hol-based hand rub. The skin overlying the right basilic vein was localized with ultrasound and noted to be compressible and patent by ultrasound. An ultrasound image was obtained and submitted on han ent's chart. Sterile technique utilized with the ultrasound machine. The skin overlying was prepped a nd draped and Lidocaine used for local anesthesia. A skin osmani was made with a scalpel. Access was gained to the vein under direct ultrasound guidance with a 21-gauge needle and a 0.018 inch wire was advanced. Access site was dilated with a peel-away sheath and the catheter tailored to length. Cath eter advanced centrally and a post procedure chest x-ray verified placement with tip at the superior vena cava. Catheter was fixed to the skin and a sterile dressing placed. Hemostasis achieved and th e catheter was aspirated and flushed with sterile saline. The patient remained in stable condition. IMPRESSION: STATUS POST ULTRASOUND GUIDED PICC LINE PLACEMENT, READY FOR USE. THIS PROCEDURE WAS PER FORMED BY THE UNDERSIGNED.
[2021-08-27] MEDS ORDERED: BAMLANIVIMAB (EUA) 700 MG, ETESEVIMAB (EUA) 1,400 MG in SODIUM CHLORIDE 0.9% 50 ML IVPB ONE (17:15)
[2021-08-27 17:41] LABS: Glucose,Whole Blood 141 mg/dL (75-99)
[2021-08-27] MEDS ORDERED: MVI, ADULT NO.4 WITH VIT K 10 ML, TRACE (CONC-1ML/DOSE) 1 ML in AMINO ACID 5%-D20W+LYTE... IV SCH ×3 (20:00)
[2021-08-27 20:11] LABS: Glucose,Whole Blood 116 mg/dL (75-99)
[2021-08-28 05:59] LABS: ALT 68 U/L (4-49); AST 48 U/L (17-59); African American GFR (CKD) >90 (>60 ml/min/1.73 sqM); Albumin 2.9 g/dL (3.5-5.0); Alkaline Phosphatase 61 U/L (38-126); Anion Gap 6 mmol/L; Blood Urea Nitrogen 30 mg/dL (9-20); Calcium 8.4 mg/dL (8.4-10.2); Carbon Dioxide 27 mmol/L (22-30); Chloride 98 mmol/L (98-107); Glucose 149 mg/dL (74-99); Non-African American GFR(CKD) 88 (>60 ml/min/1.73 sqM); Potassium 4.2 mmol/L (3.5-5.1); Sodium 131 mmol/L (137-145); Total Bilirubin 1.4 mg/dL (0.2-1.3); Total Protein 6.3 g/dL (6.3-8.2)
[2021-08-28 06:15] LABS: Magnesium 2.2 mg/dL (1.6-2.3); Phosphorus 3.1 mg/dL (2.5-4.5)
[2021-08-28 06:28] LABS: Glucose,Whole Blood 153 mg/dL (75-99)
[2021-08-28] MEDS: INSULIN ASPART (NovoLOG) 100 UNIT/ML VIAL SQ SCH ×2 (06:30→11:45)
--- NOTE | 2021-08-28 07:29 | XR ---
EXAMINATION TYPE: XR chest 1V portable DATE OF EXAM: 08/28/2021 COMPARISON: Chest x-ray 08/27/2021 HISTORY: Shortness of breath TECHNIQUE: Single frontal view of the chest is obtained. FINDINGS: Bilateral airspace disease is present, there is a right-sided PICC line with the tip at th e cavoatrial junction level. No evident pneumothorax or pleural effusion. Cardiomediastinal silhouett e shows a similar appearance. There are overlying artifacts. IMPRESSION: Correlate for pneumonia
[2021-08-28 08:01] LABS: Basophils % (A) 0 %; Eosinophils # (A) 0.3 k/uL (0-0.7); Eosinophils % (A) 2 %; HGB 17.2 gm/dL (13.0-17.5); Lymphocytes # (A) 0.6 k/uL (1.0-4.8); Lymphocytes % (A) 4 %; MCH 30.3 pg (25.0-35.0); MCHC 33.7 g/dL (31.0-37.0); MCV 90.1 fL (80.0-100.0); Mean Platelet Volume 8.5; Monocytes # (A) 0.3 k/uL (0-1.0); Monocytes % (A) 2 %; Neutrophils # (A) 14.4 k/uL (1.3-7.7); Neutrophils % (A) 92 %; Platelet Count 257 k/uL (150-450); RBC 5.67 m/uL (4.30-5.90); RDW 13.6 % (11.5-15.5); WBC 15.7 k/uL (3.8-10.6)
[2021-08-28] MEDS: ENOXAPARIN 60 MG/0.6 ML SYRINGE SQ SCH (08:36)
[2021-08-28] MEDS: PANTOPRAZOLE 40 MG/10 ML VIAL IVP SCH (08:36)
[2021-08-28] MEDS: ASPIRIN 81 MG PO SCH (08:36)
[2021-08-28] MEDS: ZINC SULFATE 220 MG CAP PO SCH (08:36)
[2021-08-28] MEDS: CHOLECALCIFEROL 25 MCG (1000 IU) TABLET PO SCH (08:36)
[2021-08-28] MEDS: LOSARTAN 25 MG TAB PO SCH (08:37)
[2021-08-28] MEDS: BARICITINIB 2 MG TABLET PO SCH (08:37)
[2021-08-28] MEDS: FUROSEMIDE 10 MG/ML 4 ML VIAL IV SCH (08:37)
[2021-08-28] MEDS: DEXAMETHASONE SOD PHOSPHATE 10 MG/ML 1 ML VIAL IVP SCH (08:37)
[2021-08-28] MEDS ORDERED: FAT EMULSION 20% 250 ML in EMPTY BAG 1 BAG IV SCH (09:00)
[2021-08-28] MEDS ORDERED: FAT EMULSION 20% 500 ML in EMPTY BAG 1 BAG IV SCH (09:00)
[2021-08-28 11:34] LABS: Glucose,Whole Blood 197 mg/dL (75-99)
[2021-08-28] MEDS: SODIUM CHLORIDE 0.9% 1,000 ML IV SCH (11:45)
[2021-08-28 12:09] VITALS: TEMP 98.1
--- NOTE | 2021-08-28 12:55 | P.PN ---
Subjective Progress Note Date: 08/28/21 Principal diagnosis: Acute hypoxic respiratory failure secondary to COVID-19 pneumonia On 08/23/2021 patient seen in follow-up on medical surgical floor. He remains on BiPAP support pressures of 18 and 8 and FiO2 of 100%, his pulse ox is 92%, he is awake and alert, tachypneic, but no acute distress was noted. In addition patient has a large ontiveros and there is a large air leak with this mask. He is oriented 3, denies any chest discomfort, he does desat when the mask is removed to take oral medications, he did have low-grade fevers overnight, with a max temperature of 99.7F. He is currently on Decadron 6 program daily, Lovenox 40 mg daily, and he is on Baricitinib which was started yesterday on 08/23/2021. His labs have been reviewed, pro-calcitonin level is 0.09, renal profile and electrolytes are unremarkable, last d-dimer was 2.98, white count is 11.6, hemog lobin is 15.4. History from today shows pulmonary venous congestion with cardiomegaly and a small amount of fluid within the right minor fissure. Patient was reevaluated today on 08/24/2021, patient was transferred yesterday to the ICU because of worsening pulmonary status and he remained on BiPAP with IPAP of 18 and EPAP of 8 and FiO2 of 100%. Patient continues to have profound hypoxemia in spite of the penis of the chest x-ray does not explain the degree of hypoxia. Hence I'm recommending a CT angiogram of the chest to be done today. I'm also recommending a venous Doppler on this patient. His venous Doppler is already negative for DVT. His d-dimer is elevated up to 28, hence I recommended we increase Lovenox dose in the meantime. His CBC is relatively unremarkable. His electrolytes are normal renal profile is normal patient seems to be marginal at best on BiPAP, and his O2 saturation is marginal Reevaluated today on 08/25/2021, patient remains in the ICU on BiPAP, 100% FiO2, IPAP of 18 and EPAP of 8. Surprisingly the patient seems to be very comfortable, his O2 saturations are marginal, his CT of the chest showed diffuse pneumonia, however his workup for pulmonary embolism is negative. WBC count is up today 14.3 hemoglobin is 16.3 electrolytes profile is normal Reevaluated today on 08/26/2021, patient remains in the ICU, overall pulmonary status is marginal at best. Remains on BiPAP, remains on 100%, IPAP of 18, EPAP of 8, patient is marginal, he is not getting any better and is not getting any worse. O2 saturation is marginal. WBC count is 13.9 hemoglobin 16.7 and lites are normal renal profile is relatively normal liver profile showed slight elevated AST and ALT otherwise negative. Reevaluated today on 08/27/21, patient remains in the ICU, remains on BiPAP with IPAP of 18 and EPAP of 8 and on the percent FiO2. And he remains marginal at best. O2 saturation is hovering in the high 80s and low 90s at best. Clinically the patient does not seem to be in any distress, he seems to be comfortable. WBC count is 15.3 hemoglobin 17.4 electrolytes are normal renal profile is normal Reevaluated today on 08/28/2021, patient is basically about the same, he is marginal at best, remains on BiPAP 18/8/100%. Remains on TPN, his O2 saturation is in the mid 80s, however the patient denies being short of breath, he seems to be very comfortable. WBC count is 15.7 hemoglobin is 17. Electrolytes are normal renal profile is normal Objective - Vital Signs Vital signs: Vital Signs Temp 98.1 F 08/28/21 12:00 Pulse 92 08/28/21 12:00 Resp 33 H 08/28/21 12:00 BP 90/65 08/28/21 12:00 Pulse Ox 89 L 08/28/21 12:00 Intake & Output 08/27/21 08/28/21 08/28/21 18:59 06:59 18:59 Intake Total 150 380 170 Output Total 1610 730 850 Balance -1460 -350 -680 Weight 114.7 kg 113.6 kg Intake: IV 380 100 Mvi, Adult No.4 with Vit 360 K 10 ml Trace (Conc-1Ml/ Dose) 1 ml In Amino Acid 5%-D20w+Lytes*E* 1,000 ml @ 30 mls/hr IV .Q24H [facility] Rx#:[id number] Sodium Chloride 0.9% 1, 20 100 000 ml @ 20 mls/hr IV . Q24H [facility] Rx#:[id number] Oral 150 0 70 Output: Urine 1610 730 850 Other: Voiding Method Indwelling Catheter Indwelling Catheter Indwelling Catheter - Exam GENERAL EXAM: Revealed a 66-year-old white male on BiPAP, not in distress. HEAD: Normocephalic/atraumatic. EENT: PERRLA, EOMI, nonicteric, no neck masses no JVD. CHEST: No chest wall deformity. Symmetrical expansion. LUNGS: Equal air entry with bibasilar crackles CVS: Regular rate and rhythm, normal S1 and S2, no gallops, no murmurs, no rubs ABDOMEN: Soft, nontender. No hepatosplenomegaly, normal bowel sounds, no guarding or rigidity. EXTREMITIES: No clubbing, no edema, no cyanosis, 2+ pulses and upper and lower extremities. MUSCULOSKELETAL: Muscle strength and tone normal. CENTRAL NERVOUS SYSTEM: Alert and oriented 3 focal deficits. PSYCHIATRIC: Normal mood affect and normal mental status examination. Skin: No rashes. - Labs CBC & Chem 7: 08/28/21 07:07 08/28/21 05:27 Labs: Abnormal Lab Results - Last 24 Hours (Table) 08/27/21 08/27/21 08/28/21 Range/Units 17:40 20:10 05:27 WBC (3.8-10.6) k/uL Neutrophils # (1.3-7.7) k/uL Lymphocytes # (1.0-4.8) k/uL Sodium 131 L (137-145) mmol/L BUN 30 H (9-20) mg/dL Glucose 149 H (74-99) mg/dL POC Glucose (mg/dL) 141 H 116 H (75-99) mg/dL Total Bilirubin 1.4 H (0.2-1.3) mg/dL ALT 68 H (4-49) U/L Albumin 2.9 L (3.5-5.0) g/dL 08/28/21 08/28/21 08/28/21 Range/Units 06:27 07:07 11:33 WBC 15.7 H (3.8-10.6) k/uL Neutrophils # 14.4 H (1.3-7.7) k/uL Lymphocytes # 0.6 L (1.0-4.8) k/uL Sodium (137-145) mmol/L BUN (9-20) mg/dL Glucose (74-99) mg/dL POC Glucose (mg/dL) 153 H 197 H (75-99) mg/dL Total Bilirubin (0.2-1.3) mg/dL ALT (4-49) U/L Albumin (3.5-5.0) g/dL Assessment and Plan Assessment: Pression: Acute hypoxic respiratory failure secondary to COVID-19 pneumonia his symptoms started 8 days prior to presentation. Patient did not qualify for rem, was started on baricitinb Acute kidney injury with prerenal azotemia, improved with hydration. Hypovolemic hyponatremia Benign essential hypertension Recommendation: Patient remains very marginal, he is not getting any worse and he is not getting any better. Continue BiPAP, Continue the COVID-19 cocktail, patient is on Decadron, Lovenox, and baricitinib Titrate oxygen and BiPAP accordingly. Continue Lovenox. Continue to monitor in the ICU. We will continue to follow Time with Patient: Less than 30
[2021-08-28 14:41] VITALS: BP 96/68
--- NOTE | 2021-08-28 14:56 | P.PN ---
Subjective Progress Note Date: 08/27/21 Principal diagnosis: Acute hypoxic respiratory failure related to COVID-19 pneumonia Acute renal injury Hypovolemic hyponatremia Patient is 66-year-old male came in with compensative shortness of breath which has been going on for about 8 days along with diarrhea which has been going on for 4 days and patient felt dehydrated. Patient does have highly elevated serum creatinine up to 2.9 with be an of around 60 with hyponatremia consistent with severe dehydration. Patient was not vaccinated for Covid. Patient is presently on 5 L of oxygen. Patient is found to have Covid 19. Patient is also on lisinopril and hydrocodone generalized at home. 08/25/2021 patient is seen and evaluated; remains in the ICU Remains on BiPAP 100% FiO2, IPAP of 18 and EPAP of 8; temperature of 97.8, pulse 85, respiration 22; Titrate oxygen and BiPAP accordingly. CT of the chest showed diffuse pneumonia, however his workup for pulmonary embolism is negative. WBC count is up today 14.3 hemoglobin is 16.3 electrolytes profile is normal; B UN/creatinine of 38/0.98 Continue the COVID-19 cocktail, patient is on Decadron, Lovenox, and baricitinib Continue Lovenox. 08/26/2021 Patient is seen and evaluated; remains in ICU; remains on BiPAP at an FiO2 of 100%; O2 saturation sustaining between 89-90% Vital signs revealed a temperature 99.4, pulse 78, respiration 20 and blood pressure 10/68 Labs are reviewed WBC 13.9, hemoglobin 16.7 and platelet count of 313, sodium 135, potassium 4.7, BUN/creatinine of 37/1.0 Pulmonary/critical care on board and recommending to continue with BiPAP; patient remains on COVID-19 treatment cocktail with Decadron, Lovenox, and baricitinib 08/27/2021 Patient remains in ICU; patient discussed with nursing staff; remotely evaluated from outside the room to limit exposure and spread; patient remains on BiPAP with FiO2 of 100%; O2 saturation. 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 and recommending to continue current management at this time Objective - Vital Signs Vital signs: Vital Signs Temp 98.4 F 08/27/21 12:00 Pulse 85 08/27/21 12:00 Resp 33 H 08/27/21 12:00 BP 109/68 08/27/21 12:00 Pulse Ox 86 L 08/27/21 12:00 Intake & Output 08/26/21 08/27/21 08/27/21 18:59 06:59 18:59 Intake Total 890 150 Output Total 7961 166 0060 Balance -1645 110 -1035 Weight 114.7 kg 114.7 kg Intake: Oral 890 150 Output: Urine 0011 623 3082 Other: Voiding Method Indwelling Catheter Indwelling Catheter Indwelling Catheter - Exam Patient not evaluated at bedside; examination documented is from previous evaluation GENERAL: The patient is alert and oriented x3. Respiratory distress at the time of my examination, requiring BiPAP support. HEENT: Pupils are round and equally reacting to light. EOMI. No scleral icterus. No conjunctival pallor. Normocephalic, atraumatic. No pharyngeal erythema. No thyromegaly. CARDIOVASCULAR: S1 and S2 present. No murmurs, rubs, or gallops. PULMONARY: Coarse rales throughout ABDOMEN: Soft, nontender, nondistended, normoactive bowel sounds. No palpable organomegaly. MUSCULOSKELETAL: No joint swelling or deformity. EXTREMITIES: No cyanosis, clubbing, or pedal edema. NEUROLOGICAL: Gross neurological examination did not reveal any focal deficits. SKIN: No rashes. - Labs CBC & Chem 7: 08/28/21 07:07 08/28/21 05:27 Labs: Abnormal Lab Results - Last 24 Hours (Table) 08/26/21 08/26/21 08/27/21 Range/Units 18:21 21:13 06:51 WBC (3.8-10.6) k/uL Neutrophils # (1.3-7.7) k/uL Lymphocytes # (1.0-4.8) k/uL Sodium (137-145) mmol/L BUN (9-20) mg/dL Glucose (74-99) mg/dL POC Glucose (mg/dL) 142 H 122 H 119 H (75-99) mg/dL AST (17-59) U/L ALT (4-49) U/L Albumin (3.5-5.0) g/dL 08/27/21 08/27/21 08/27/21 Range/Units 06:56 06:56 11:18 WBC 15.3 H (3.8-10.6) k/uL Neutrophils # 13.6 H (1.3-7.7) k/uL Lymphocytes # 0.9 L (1.0-4.8) k/uL Sodium 132 L (137-145) mmol/L BUN 35 H (9-20) mg/dL Glucose 120 H (74-99) mg/dL POC Glucose (mg/dL) 123 H (75-99) mg/dL AST 62 H (17-59) U/L ALT 79 H (4-49) U/L Albumin 3.1 L (3.5-5.0) g/dL Assessment and Plan Assessment: Assessment and plan -Acute hypoxic respiratory failure secondary to Covid 19 pneumonia, on BiPAP with 100% FiO2 -Elevated D-Dimer; today 28; CTA pending -Fluid overload, no history of CHF and echo shows an EF of 60-65%, on IV lasix daily -Diarrhea secondary to Covid 19 infection, improved -Acute renal failure secondary to prerenal azotemia from diarrhea, improved -Hypovolemic hyponatremia secondary to diarrhea as mentioned above, improved -Hypertension: can resume losartan DVT prophylaxis: LOVENOX, which was increased GI prophylaxis: Protonix FULL CODE Plan CTA pending Continue oxygen support Continue IV lasix daily Continue decadron, zinc, vitamins, Baritcitinib Continue all other supportive care Repeat labs tomorrow Prognosis guarded
[2021-08-28] MEDS ORDERED: LORazepam 2 MG/ML INJ IV PRN (15:04)
[2021-08-28] MEDS ORDERED: MORPHINE SULFATE (100 MG/2 ML) 100 MG in SODIUM CHLORIDE 0.9% 100 ML IV SCH (15:15)
[2021-08-28] MEDS: MORPHINE SULFATE 4 MG/ML SYRINGE IV PRN (16:24)
--- NOTE | 2021-08-28 16:36 | P.PN ---
Subjective Progress Note Date: 08/28/21 Principal diagnosis: Acute hypoxic respiratory failure related to COVID-19 pneumonia Acute renal injury Hypovolemic hyponatremia Patient is 66-year-old male came in with compensative shortness of breath which has been going on for about 8 days along with diarrhea which has been going on for 4 days and patient felt dehydrated. Patient does have highly elevated serum creatinine up to 2.9 with be an of around 60 with hyponatremia consistent with severe dehydration. Patient was not vaccinated for Covid. Patient is presently on 5 L of oxygen. Patient is found to have Covid 19. Patient is also on lisinopril and hydrocodone generalized at home. 08/25/2021 patient is seen and evaluated; remains in the ICU Remains on BiPAP 100% FiO2, IPAP of 18 and EPAP of 8; temperature of 97.8, pulse 85, respiration 22; Titrate oxygen and BiPAP accordingly. CT of the chest showed diffuse pneumonia, however his workup for pulmonary embolism is negative. WBC count is up today 14.3 hemoglobin is 16.3 electrolytes profile is normal; B UN/creatinine of 38/0.98 Continue the COVID-19 cocktail, patient is on Decadron, Lovenox, and baricitinib Continue Lovenox. 08/26/2021 Patient is seen and evaluated; remains in ICU; remains on BiPAP at an FiO2 of 100%; O2 saturation sustaining between 89-90% Vital signs revealed a temperature 99.4, pulse 78, respiration 20 and blood pressure 10/68 Labs are reviewed WBC 13.9, hemoglobin 16.7 and platelet count of 313, sodium 135, potassium 4.7, BUN/creatinine of 37/1.0 Pulmonary/critical care on board and recommending to continue with BiPAP; patient remains on COVID-19 treatment cocktail with Decadron, Lovenox, and baricitinib 08/27/2021 Patient remains in ICU; patient discussed with nursing staff; remotely evaluated from outside the room to limit exposure and spread; patient remains on BiPAP with FiO2 of 100%; O2 saturation. She is Vital signs reviewed; temperature of 98.4, pulse 85, respiration 33 and blood pressure of 109/68 Lab review shows WBC of 15.3, hemoglobin 17.4 and hematocrit of 52.2, platelets 286, sodium 132, potassium 4.7, BUN/creatinine of 35/0.90 Patient remains on Decadron, Lovenox and baricitinib; supply chain coordinator/pulmonary service on board and recommending to continue current management at this time 08/28/2021 Patient is seen and evaluated in ICU at bedside; patient's son expressed in the room; patient and son are requesting for BiPAP mask to be removed, stating that patient wants to be able to put his glasses on; patient and son get quite irritable when tried to explain that taking mask off desaturated very quickly and he might not be able to treat all and will be very uncomfortable; patient and sons still want BiPAP mask removed; patient's nurse is endorsed and she will be replacing BiPAP mask with nonrebreather mask to keep patient comfortable; I will add IV morphine to keep patient comfortable wants the mask is removed and patient will get more air hungry; patient initially requested to leave AGAINST MEDICAL ADVICE and wanted to be understanding that he might not be able to survive the right home; did explain to the patient that in that way he will be danger to the community due to being Covid positive; patient did understand and opted for comfort care; I personally went over the entire scenario with Dr. Barroso, who was kind enough to assess the entire situation and he is agreeable with continuing to make patient comfortable per patient and family wishes Objective - Vital Signs Vital signs: Vital Signs Temp 98.1 F 08/28/21 12:00 Pulse 89 08/28/21 14:00 Resp 36 H 08/28/21 14:00 BP 96/68 08/28/21 14:00 Pulse Ox 89 L 08/28/21 14:00 Intake & Output 08/27/21 08/28/21 08/28/21 18:59 06:59 18:59 Intake Total 150 380 210 Output Total 1610 730 985 Balance -1460 350 -775 Weight 114.7 kg 113.6 kg Intake: IV 380 140 Mvi, Adult No.4 with Vit 360 K 10 ml Trace (Conc-1Ml/ Dose) 1 ml In Amino Acid 5%-D20w+Lytes*E* 1,000 ml @ 30 mls/hr IV .Q24H [facility] Rx#:[id number] Sodium Chloride 0.9% 1, 20 140 000 ml @ 20 mls/hr IV . Q24H [facility] Rx#:[id number] Oral 150 0 70 Output: Urine 1610 730 985 Other: Voiding Method Indwelling Catheter Indwelling Catheter Indwelling Catheter - Exam GENERAL: The patient is alert and oriented x3. Respiratory distress at the time of my examination, requiring BiPAP support. HEENT: Pupils are round and equally reacting to light. EOMI. No scleral icterus. No conjunctival pallor. Normocephalic, atraumatic. No pharyngeal erythema. No thyromegaly. CARDIOVASCULAR: S1 and S2 present. No murmurs, rubs, or gallops. PULMONARY: Coarse rales throughout ABDOMEN: Soft, nontender, nondistended, normoactive bowel sounds. No palpable organomegaly. MUSCULOSKELETAL: No joint swelling or deformity. EXTREMITIES: No cyanosis, clubbing, or pedal edema. NEUROLOGICAL: Gross neurological examination did not reveal any focal deficits. SKIN: No rashes. - Labs CBC & Chem 7: 08/28/21 07:07 08/28/21 05:27 Labs: Abnormal Lab Results - Last 24 Hours (Table) 08/27/21 08/27/21 08/28/21 Range/Units 17:40 20:10 05:27 WBC (3.8-10.6) k/uL Neutrophils # (1.3-7.7) k/uL Lymphocytes # (1.0-4.8) k/uL Sodium 131 L (137-145) mmol/L BUN 30 H (9-20) mg/dL Glucose 149 H (74-99) mg/dL POC Glucose (mg/dL) 141 H 116 H (75-99) mg/dL Total Bilirubin 1.4 H (0.2-1.3) mg/dL ALT 68 H (4-49) U/L Albumin 2.9 L (3.5-5.0) g/dL 08/28/21 08/28/21 08/28/21 Range/Units 06:27 07:07 11:33 WBC 15.7 H (3.8-10.6) k/uL Neutrophils # 14.4 H (1.3-7.7) k/uL Lymphocytes # 0.6 L (1.0-4.8) k/uL Sodium (137-145) mmol/L BUN (9-20) mg/dL Glucose (74-99) mg/dL POC Glucose (mg/dL) 153 H 197 H (75-99) mg/dL Total Bilirubin (0.2-1.3) mg/dL ALT (4-49) U/L Albumin (3.5-5.0) g/dL
[2021-08-28] MEDS: 1: AMINO ACID 5%-D20W+LYTES*E* 1,000 ML 2: MVI, ADULT NO.4 WITH VIT K 10 ML, TRACE (CON IV SCH ×3 (17:22)
[2021-08-29] MEDS: 1: AMINO ACID 5%-D20W+LYTES*E* 1,000 ML 2: MVI, ADULT NO.4 WITH VIT K 10 ML, TRACE (CON IV SCH ×6 (10:17→19:27)
--- NOTE | 2021-08-29 13:47 | P.PN ---
Subjective Progress Note Date: 08/29/21 Principal diagnosis: Acute hypoxic respiratory failure secondary to COVID-19 pneumonia On 08/23/2021 patient seen in follow-up on medical surgical floor. He remains on BiPAP support pressures of 18 and 8 and FiO2 of 100%, his pulse ox is 92%, he is awake and alert, tachypneic, but no acute distress was noted. In addition patient has a large ontiveros and there is a large air leak with this mask. He is oriented 3, denies any chest discomfort, he does desat when the mask is removed to take oral medications, he did have low-grade fevers overnight, with a max temperature of 99.7F. He is currently on Decadron 6 program daily, Lovenox 40 mg daily, and he is on Baricitinib which was started yesterday on 08/23/2021. His labs have been reviewed, pro-calcitonin level is 0.09, renal profile and electrolytes are unremarkable, last d-dimer was 2.98, white count is 11.6, hemog lobin is 15.4. History from today shows pulmonary venous congestion with cardiomegaly and a small amount of fluid within the right minor fissure. Patient was reevaluated today on 08/24/2021, patient was transferred yesterday to the ICU because of worsening pulmonary status and he remained on BiPAP with IPAP of 18 and EPAP of 8 and FiO2 of 100%. Patient continues to have profound hypoxemia in spite of the penis of the chest x-ray does not explain the degree of hypoxia. Hence I'm recommending a CT angiogram of the chest to be done today. I'm also recommending a venous Doppler on this patient. His venous Doppler is already negative for DVT. His d-dimer is elevated up to 28, hence I recommended we increase Lovenox dose in the meantime. His CBC is relatively unremarkable. His electrolytes are normal renal profile is normal patient seems to be marginal at best on BiPAP, and his O2 saturation is marginal Reevaluated today on 08/25/2021, patient remains in the ICU on BiPAP, 100% FiO2, IPAP of 18 and EPAP of 8. Surprisingly the patient seems to be very comfortable, his O2 saturations are marginal, his CT of the chest showed diffuse pneumonia, however his workup for pulmonary embolism is negative. WBC count is up today 14.3 hemoglobin is 16.3 electrolytes profile is normal Reevaluated today on 08/26/2021, patient remains in the ICU, overall pulmonary status is marginal at best. Remains on BiPAP, remains on 100%, IPAP of 18, EPAP of 8, patient is marginal, he is not getting any better and is not getting any worse. O2 saturation is marginal. WBC count is 13.9 hemoglobin 16.7 and lites are normal renal profile is relatively normal liver profile showed slight elevated AST and ALT otherwise negative. Reevaluated today on 08/27/21, patient remains in the ICU, remains on BiPAP with IPAP of 18 and EPAP of 8 and on the percent FiO2. And he remains marginal at best. O2 saturation is hovering in the high 80s and low 90s at best. Clinically the patient does not seem to be in any distress, he seems to be comfortable. WBC count is 15.3 hemoglobin 17.4 electrolytes are normal renal profile is normal Reevaluated today on 08/28/2021, patient is basically about the same, he is marginal at best, remains on BiPAP 18/8/100%. Remains on TPN, his O2 saturation is in the mid 80s, however the patient denies being short of breath, he seems to be very comfortable. WBC count is 15.7 hemoglobin is 17. Electrolytes are normal renal profile is normal Reevaluated today on 08/29/2021, patient remains in the ICU, he is now on comfort care measures, on 4 L nasal cannula, patient is also on morphine drip at 1 mg/h, seems to be very comfortable, does not seem to be in any distress, and his significant other who is a nurse is at his bedside. The plan is to transfer the patient to his home tomorrow with the plan of comfort care measures at home. Objective - Vital Signs Vital signs: Vital Signs Temp 98.1 F 08/28/21 12:00 Pulse 92 08/29/21 08:00 Resp 17 08/29/21 08:00 BP 96/68 08/28/21 14:00 Pulse Ox 64 L 08/29/21 07:03 Intake & Output 08/28/21 08/29/21 08/29/21 18:59 06:59 18:59 Intake Total 210 Output Total 985 Balance -775 Intake: IV 140 Sodium Chloride 0.9% 1, 140 000 ml @ 20 mls/hr IV . Q24H [facility] Rx#:[id number] Oral 70 Output: Urine 985 Other: Voiding Method Indwelling Catheter Indwelling Catheter - Exam GENERAL EXAM: Revealed a 66-year-old white male on nasal cannula, not in distress. HEAD: Normocephalic/atraumatic. EENT: PERRLA, EOMI, nonicteric, no neck masses no JVD. CHEST: No chest wall deformity. Symmetrical expansion. LUNGS: Equal air entry with bibasilar crackles CVS: Regular rate and rhythm, normal S1 and S2, no gallops, no murmurs, no rubs ABDOMEN: Soft, nontender. No hepatosplenomegaly, normal bowel sounds, no guarding or rigidity. EXTREMITIES: No clubbing, no edema, no cyanosis, 2+ pulses and upper and lower extremities. MUSCULOSKELETAL: Muscle strength and tone normal. CENTRAL NERVOUS SYSTEM: Alert and oriented 3 focal deficits. PSYCHIATRIC: Normal mood affect and normal mental status examination. Skin: No rashes. - Labs CBC & Chem 7: 08/28/21 07:07 08/28/21 05:27 Assessment and Plan Assessment: Pression: Acute hypoxic respiratory failure secondary to COVID-19 pneumonia his symptoms started 8 days prior to presentation. Patient is now on comfort care measures as per his own request. Acute kidney injury with prerenal azotemia, improved with hydration. Hypovolemic hyponatremia Benign essential hypertension Recommendation: Agree with comfort care measures, and since the patient requested to do so, Discussed his condition with his significant other at bedside, and she is willing to take him home tomorrow. We will continue to follow Time with Patient: Less than 30
--- NOTE | 2021-08-29 14:46 | P.PN ---
Subjective Progress Note Date: 08/29/21 Principal diagnosis: Acute hypoxic respiratory failure related to COVID-19 pneumonia Acute renal injury Hypovolemic hyponatremia Patient is 66-year-old male came in with compensative shortness of breath which has been going on for about 8 days along with diarrhea which has been going on for 4 days and patient felt dehydrated. Patient does have highly elevated serum creatinine up to 2.9 with be an of around 60 with hyponatremia consistent with severe dehydration. Patient was not vaccinated for Covid. Patient is presently on 5 L of oxygen. Patient is found to have Covid 19. Patient is also on lisinopril and hydrocodone generalized at home. 08/25/2021 patient is seen and evaluated; remains in the ICU Remains on BiPAP 100% FiO2, IPAP of 18 and EPAP of 8; temperature of 97.8, pulse 85, respiration 22; Titrate oxygen and BiPAP accordingly. CT of the chest showed diffuse pneumonia, however his workup for pulmonary embolism is negative. WBC count is up today 14.3 hemoglobin is 16.3 electrolytes profile is normal; B UN/creatinine of 38/0.98 Continue the COVID-19 cocktail, patient is on Decadron, Lovenox, and baricitinib Continue Lovenox. 08/26/2021 Patient is seen and evaluated; remains in ICU; remains on BiPAP at an FiO2 of 100%; O2 saturation sustaining between 89-90% Vital signs revealed a temperature 99.4, pulse 78, respiration 20 and blood pressure 10/68 Labs are reviewed WBC 13.9, hemoglobin 16.7 and platelet count of 313, sodium 135, potassium 4.7, BUN/creatinine of 37/1.0 Pulmonary/critical care on board and recommending to continue with BiPAP; patient remains on COVID-19 treatment cocktail with Decadron, Lovenox, and baricitinib 08/27/2021 Patient remains in ICU; patient discussed with nursing staff; remotely evaluated from outside the room to limit exposure and spread; patient remains on BiPAP with FiO2 of 100%; O2 saturation. She is Vital signs reviewed; temperature of 98.4, pulse 85, respiration 33 and blood pressure of 109/68 Lab review shows WBC of 15.3, hemoglobin 17.4 and hematocrit of 52.2, platelets 286, sodium 132, potassium 4.7, BUN/creatinine of 35/0.90 Patient remains on Decadron, Lovenox and baricitinib; operational intelligence officer/pulmonary service on board and recommending to continue current management at this time 08/28/2021 Patient is seen and evaluated in ICU at bedside; patient's son expressed in the room; patient and son are requesting for BiPAP mask to be removed, stating that patient wants to be able to put his glasses on; patient and son get quite irritable when tried to explain that taking mask off desaturated very quickly and he might not be able to treat all and will be very uncomfortable; patient and sons still want BiPAP mask removed; patient's nurse is endorsed and she will be replacing BiPAP mask with nonrebreather mask to keep patient comfortable; I will add IV morphine to keep patient comfortable wants the mask is removed and patient will get more air hungry; patient initially requested to leave AGAINST MEDICAL ADVICE and wanted to be understanding that he might not be able to survive the right home; did explain to the patient that in that way he will be danger to the community due to being Covid positive; patient did understand and opted for comfort care; I personally went over the entire scenario with Dr. Barroso, who was kind enough to assess the entire situation and he is agreeable with continuing to make patient comfortable per patient and family wishes 08/29/2021 Patient remains in ICU; has been transitioned to comfort care; currently on IV morphine infusion at a rate of 1 mg per hour; plan is to try to transition to discharge home with comfort measures; case management will make arrangements Patient is currently on O2 at 4 L per nasal cannula with O2 saturation and 60s despite which patient seems comfortable and not in any distress Transition was discussed with patient and son at bedside yesterday and they were both agreeable to discontinuing BiPAP and initiate comfort care measures Objective - Vital Signs Vital signs: Vital Signs Temp 98.1 F 08/28/21 12:00 Pulse 92 08/29/21 08:00 Resp 17 08/29/21 08:00 BP 96/68 08/28/21 14:00 Pulse Ox 64 L 08/29/21 07:03 Intake & Output 08/28/21 08/29/21 08/29/21 18:59 06:59 18:59 Intake Total 210 Output Total 985 Balance -775 Intake: IV 140 Sodium Chloride 0.9% 1, 140 000 ml @ 20 mls/hr IV . Q24H [facility] Rx#:[id number] Oral 70 Output: Urine 985 Other: Voiding Method Indwelling Catheter Indwelling Catheter - Exam GENERAL: The patient is alert and oriented x3. Respiratory distress at the time of my examination, requiring BiPAP support. HEENT: Pupils are round and equally reacting to light. EOMI. No scleral icterus. No conjunctival pallor. Normocephalic, atraumatic. No pharyngeal erythema. No thyromegaly. CARDIOVASCULAR: S1 and S2 present. No murmurs, rubs, or gallops. PULMONARY: Coarse rales throughout ABDOMEN: Soft, nontender, nondistended, normoactive bowel sounds. No palpable organomegaly. MUSCULOSKELETAL: No joint swelling or deformity. EXTREMITIES: No cyanosis, clubbing, or pedal edema. NEUROLOGICAL: Gross neurological examination did not reveal any focal deficits. SKIN: No rashes. - Labs CBC & Chem 7: 08/28/21 07:07 08/28/21 05:27 Assessment and Plan Assessment: Assessment and plan -Acute hypoxic respiratory failure secondary to Covid 19 pneumonia, on BiPAP wi th 100% FiO2 -Elevated D-Dimer; today 28; CTA pending -Fluid overload, no history of CHF and echo shows an EF of 60-65%, on IV lasix daily -Diarrhea secondary to Covid 19 infection, improved -Acute renal failure secondary to prerenal azotemia from diarrhea, improved -Hypovolemic hyponatremia secondary to diarrhea as mentioned above, improved -Hypertension: can resume losartan DVT prophylaxis: LOVENOX, which was increased GI prophylaxis: Protonix FULL CODE Plan CTA pending Continue oxygen support Continue IV lasix daily Continue decadron, zinc, vitamins, Baritcitinib Continue all other supportive care Repeat labs tomorrow Prognosis guarded
[2021-08-29] MEDS: MORPHINE SULFATE 4 MG/ML SYRINGE IV PRN ×2 (18:36→19:10)
[2021-08-29] MEDS: SODIUM CHLORIDE 0.9% 1,000 ML IV SCH (19:26)
[2021-08-29 19:40] VITALS: PULSE 36
[2021-08-29 19:41] VITALS: RESP 30
--- NOTE | 2021-09-01 08:05 | P.DS ---
Providers Date of admission: 08/18/21 20:01 Expected date of discharge: 08/29/21 Attending physician: Cynthia Donovan Consults: 08/19/21 12:58 Consult Physician Routine Consulting Provider: Judy Arguello Consult Reason/Comments: COVID Do you want consulting provider notified?: Yes 08/28/21 13:34 Consult Physician Stat Consulting Provider: Otto Pagan Consult Reason/Comments: pt wants to leave AMA while on 100% bipap Do you want consulting provider notified?: Yes Primary care physician: Seda Russo Tolentino [facility] Course: Patient is 66-year-old male came in with compensative shortness of breath which has been going on for about 8 days along with diarrhea which has been going on for 4 days and patient felt dehydrated. Patient does have highly elevated serum creatinine up to 2.9 with be an of around 60 with hyponatremia consistent with severe dehydration. Patient was not vaccinated for Covid. Patient is presently on 5 L of oxygen. Patient is found to have Covid 19. Patient is also on lisinopril and hydrocodone generalized at home. 08/20/2021 Patient evaluated today resting in bed. He is on a 6 L nasal cannula high flow with oxygen saturation 91%. Patient was to be discharged home however he is hypoxic on room air into the low 80s. Discussed with patient that this is not recommended as he is positive for Covid and requiring oxygen. Labs: white count 10.63, hemoglobin 16.2, sodium improved drastically to 140, BUN 34, creatinine 1.4 glucose elevated at 140s. LDH 2240 and CRP 7.2. Urinalysis is negative. Today patient is afebrile, heart rate 84, blood pressure elevated 177/79. Patient is being followed closely by pulmonary services. 08/21/2021 Patient this morning is agitated. He developed been hospitalized more. Unfortunately he is requiring 10 L nasal cannula high flow with oxygen saturation of 87-91%. Patient's complaint is of the room is cold, he was offered additional blankets, and thermostat states room temp is 70*. Additionally, patient is not understanding of the need for oxygen support and the risk for discharge even on 6L HF cannula. Oxygen tanks and high flow cannula were supplied for anticipated discharge, and patient has the number for [facility]. Verified CODE status with patient and he states that he has a living will, and at this time he DOES NOT want CPR, medications, and intubation even temporarily. He states that "I don't know what your temporary means." Unsure whether patient full understands his diagnosis, therapeutics, and prognosis if he leaves AGAINST MEDICAL ADVICE. Patient was advised that medically he is not cleared for discharge requiring 10L high flow cannula. Vitals today 97.9, heart rate 77, blood pressure 147/80, 87% 10L HF cannula. Repeat labs tomorrow. His lungs are clear. He denies current smoking, states occasional alcohol use. RN to verify code status and educate patient further and follow up. Patient may need psychiatric evaluation for medical competency. It is difficult to converse with patient and educate, as he is adamant on a discharge order. 08/22/2021 This morning there was an Ateam called on the patient at about 8:30 AM, arrived to the bedside and patient was in respiratory distress requiring increasing oxygenation support with oxygen saturations in the 80s. ICU nurse and sound physician already present. BiPAP was ordered at 18/8 and 100% FiO2, with subsequ ent oxygen saturations in the low 90s. CODE STATUS was addressed and updated in patient agrees to a full code. Inflammatory markers, d-dimer and labs were pending at the time. Today white count is 10.73, sodium 139, potassium 4.5, CO2 19.7, glucose stable in the 140s, LDH 748 and CRP 3.60. D-dimer elevated at 2.98. Procalcitonin is pending. Chest x-ray today shows pulmonary venous congestion with cardiomegaly and a small amount of fluid in the right minor fissure correlate for mild congestive failure. Would like a CTA for better evaluation however due to current respiratory status, CTA cannot be completed. Field Engineer is recommending transfer to ICU when bed becomes available. Vital signs currently 98.2, heart rate 83, respiratory rate 31, blood pressure 151/75 and he is 94% saturation on the BiPAP. 08/23/2021 [facility], unless his conditions worsens, ICU transfer on hold for now. There are no acute events overnight, maintained on the BiPAP 100% FiO2, saturation 91%, blood pressure 114/72, heart rate 111, respirations 30, afebrile. Procalcitonin 0.09, white count 11.69, sodium 137, potassium 4.3, CO2 19.4, BUN 18.6, creatinine 0.9, sugars in the 190s, AST 62, ALT 84, total protein 5.5, albumin 3.2 today. Patient was started on KEHINDE today from the pulmonary team. He was also given a dose of IV lasix. Continues on Lovenox, decadron, zinc, vitamin c, vitamin d3. Prognosis remains guarded. 08/24/2021 Patient was transferred to the intensive care unit of the evening, he continues on 100% BiPAP with oxygen saturation of 91-92%. Blood pressure 114/75, respirations 32, afebrile, heart rate 92. Continues on Baricitinib, Decadron, vitamin D3, Lovenox, IV Lasix, zinc. Labs today show white count of 12.9, d- dimer at 28.11, sodium 138, potassium 4.3, BUN 30, creatinine 0.93, blood glucose 123, LDH 1819, CRP 36 proBNP was 509. Echocardiogram showed an EF of 60-65%, venous Doppler negative for bilateral lower extremity DVT. CT a ngiography was ordered for elevated d-dimer. Chest x-ray today shows slightly improved inspiration, persistent reticular increased opacities greater than the left lung consistent with COVID-19 infection. Being followed closely by pulmonary/intensive care services. Prognosis remains guarded for this patient due to increasing oxygen needs and overall clinical status. 08/25/2021 patient is seen and evaluated; remains in the ICU Remains on BiPAP 100% FiO2, IPAP of 18 and EPAP of 8; temperature of 97.8, pulse 85, respiration 22; Titrate oxygen and BiPAP accordingly. CT of the chest showed diffuse pneumonia, however his workup for pulmonary embolism is negative. WBC count is up today 14.3 hemoglobin is 16.3 electrolytes profile is normal; B UN/creatinine of 38/0.98 Continue the COVID-19 cocktail, patient is on Decadron, Lovenox, and baricitinib Continue Lovenox. 08/26/2021 Patient is seen and evaluated; remains in ICU; remains on BiPAP at an FiO2 of 100%; O2 saturation sustaining between 89-90% Vital signs revealed a temperature 99.4, pulse 78, respiration 20 and blood pressure 10/68 Labs are reviewed WBC 13.9, hemoglobin 16.7 and platelet count of 313, sodium 135, potassium 4.7, BUN/creatinine of 37/1.0 Pulmonary/critical care on board and recommending to continue with BiPAP; patient remains on COVID-19 treatment cocktail with Decadron, Lovenox, and baricitinib 08/27/2021 Patient remains in ICU; patient discussed with nursing staff; remotely evaluated from outside the room to limit exposure and spread; patient remains on BiPAP with FiO2 of 100%; O2 saturation. She is Vital signs reviewed; temperature of 98.4, pulse 85, respiration 33 and blood pressure of 109/68 Lab review shows WBC of 15.3, hemoglobin 17.4 and hematocrit of 52.2, platelets 286, sodium 132, potassium 4.7, BUN/creatinine of 35/0.90 Patient remains on Decadron, Lovenox and baricitinib; medical liaison/pulmonary service on board and recommending to continue current management at this time 08/28/2021 Patient is seen and evaluated in ICU at bedside; patient's son expressed in the room; patient and son are requesting for BiPAP mask to be removed, stating that patient wants to be able to put his glasses on; patient and son get quite irritable when tried to explain that taking mask off desaturated very quickly and he might not be able to treat all and will be very uncomfortable; patient and sons still want BiPAP mask removed; patient's nurse is endorsed and she will be replacing BiPAP mask with nonrebreather mask to keep patient comfortable; I will add IV morphine to keep patient comfortable wants the mask is removed and patient will get more air hungry; patient initially requested to leave AGAINST MEDICAL ADVICE and wanted to be understanding that he might not be able to survive the right home; did explain to the patient that in that way he will be danger to the community due to being Covid positive; patient did understand and opted for comfort care; I personally went over the entire scenario with Dr. Barroso, who was kind enough to assess the entire situation and he is agreeable with continuing to make patient comfortable per patient and family wishes 08/29/2021 Patient remains in ICU; has been transitioned to comfort care; currently on IV morphine infusion at a rate of 1 mg per hour; plan is to try to transition to discharge home with comfort measures; case management will make arrangements Patient is currently on O2 at 4 L per nasal cannula with O2 saturation and 60s despite which patient seems comfortable and not in any distress Transition was discussed with patient and son at bedside yesterday and they were both agreeable to discontinuing BiPAP and initiate comfort care measures Patient remained comfortable and at 19:50 Patient Condition at Discharge: Fair Plan - Discharge Summary Discharge Rx Participant: No New Discharge Prescriptions: No Action Cholecalciferol [Vitamin D3 (25 Mcg = 1000 Iu)] 25 mcg PO DAILY Losartan-Hctz 50-12.5 mg [Hyzaar 50-12.5] 1 tab PO HS Aspirin EC [Ecotrin Low Dose] 81 mg PO DAILY Ubidecarenone [Co Q-10] 100 mg PO DAILY Discharge Medication List Aspirin EC [Ecotrin Low Dose] 81 mg PO DAILY 08/18/21 [History] Cholecalciferol [Vitamin D3 (25 Mcg = 1000 Iu)] 25 mcg PO DAILY 08/18/21 [History] Losartan-Hctz 50-12.5 mg [Hyzaar 50-12.5] 1 tab PO HS 08/18/21 [History] Ubidecarenone [Co Q-10] 100 mg PO DAILY 08/18/21 [History] Follow up Appointment(s)/Referral(s): [facility] [NON-STAFF] - As Needed (Supplier of home oxygen) Seda Tolentino MD [Primary Care Provider] - 1-2 days Discharge Disposition: - Preliminary Cause of Preliminary Cause of : Acute respiratory failure secondary to COVID 19 infection/Pneumonia
== END 2021-08-29 21:50 | disposition expired | DRG 177 ==
LOC: EC 15:39 → 4SSUR 20:01 → 6NMEDSUR 08-19 02:05 → 2SICU 08-23 14:32
PROVIDERS: ADMIT Hospitalist; ATTEND Hospitalist
PROC: 5A09557 Assistance with Respiratory Ventilation, Greater than 96 Consecutive Hours, Continuous Positive Airway Pressure (ICD-10-PCS; principal; 2021-08-22)
PROC: XW0DXM6 Introduction of Baricitinib into Mouth and Pharynx, External Approach, New Technology Group 6 (ICD-10-PCS; 2021-08-23)
PROC: 02HV33Z Insertion of Infusion Device into Superior Vena Cava, Percutaneous Approach (ICD-10-PCS; 2021-08-27)
PROC: 3E0436Z Introduction of Nutritional Substance into Central Vein, Percutaneous Approach (ICD-10-PCS; 2021-08-28)
DX: U07.1 COVID-19 (principal); J96.01 Acute respiratory failure with hypoxia; J12.82 Pneumonia due to coronavirus disease 2019; N17.9 Acute kidney failure, unspecified; E87.2 Acidosis; A08.39 Other viral enteritis; E87.1 Hypo-osmolality and hyponatremia; Z66 Do not resuscitate; Z51.5 Encounter for palliative care; E86.0 Dehydration; E86.1 Hypovolemia; E87.70 Fluid overload, unspecified; I10 Essential (primary) hypertension; Z79.82 Long term (current) use of aspirin; Z79.899 Other long term (current) drug therapy; Z96.60 Presence of unspecified orthopedic joint implant
CPT/HCPCS: 36415; 36573; 71045; 71275; 80048; 80053; 81001; 83605; 83615; 83735; 83880; 84100; 84145; 84478; 85025; 85027; 85379; 86140; 87636; 93306; 93970; 94660; 96360; 96361; 99285